=== PATIENT | female | born 1970 | race Caucasian/White ===

== ENCOUNTER → 2018-03-13 10:32 | Outpatient (CLI) | payer OTHER, SELFPAY ==
--- NOTE | 2018-03-13 10:37 | RAD_ITS ---
STUDY: X-RAY - CERVICAL SPINE REASON FOR EXAM: Female, 47 years old. TECHNIQUE: 5 view(s) of the cervical spine were obtained. COMPARISON: March 25, 2013 FINDINGS: There is straightening of the cervical lordosis. No abnormality detected at the craniovertebral junction nor at the levels of C1-C2, C2-3 or C3-4. At the level of C4-5 and C5-6 the discs is slightly narrowed with posterior spondylosis and bilateral encroachment upon the neural foramina more so on the right side. No abnormality seen at the level of C6-7.. 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 Straightening of the cervical lordosis. Electronically Signed: Lenin Vital, at 16:02 EST Tel , Service support ,
[2018-03-13 12:34] LABS: Erythrocyte Sedimentation Rate 14 mm/hr (0-20)
[2018-03-13 12:36] LABS: Hematocrit 39.6 % (37-47); Mean Corp Hgb Conc 32.8 g/gl (32-36); Mean Corpuscular Hgb 27.1 pg (27.0-32.0); Mean Corpuscular Volume 82.7 fL (81-99); Platelet Count 243 K/mm3 (150-450); RBC Distribution Width CV 13.2 % (11.6-14.6); RBC Distribution Width SD 39.1 fl (35.1-43.9); Red Blood Count 4.79 M/mm3 (4.2-5.4); White Blood Count 12.3 K/mm3 (4.4-11.0)
[2018-03-13 12:38] LABS: Scan Indicated on CBC? Y/N NO
[2018-03-13 12:54] LABS: Anion Gap 6 (5-15); BUN 12 mg/dL (7-18); BUN/Creat Ratio 16.1 RATIO (10-20); Calcium,Total 8.4 mg/dL (8.5-10.1); Chloride 107 mmol/L (98-107); Creatinine, Serum 0.75 mg/dL (0.55-1.02); EST Glomerular Filtration Rate 88 mL/min (>60); Est Glom Filt Rate - Afr Amer 106 mL/min (>60); Ferritin 46 ng/mL (8-252); Glucose 97 mg/dL (74-106); Iron 57 ug/dL (50-170); Potassium 4.3 mmol/L (3.5-5.1); Sodium Level 142 mmol/L (136-145); Thyroid Stim Hormone (TSH) 2.33 uIU/mL (0.358-3.74); Vitamin B12 241 pg/mL (211-911); Vitamin D,25 Hydroxy 16.9 ng/mL (29.95-100.01)
== END ==
PROVIDERS: Family Provider Family Medicine; PCP Family Medicine; Referring Provider Family Medicine; Visit Provider Family Medicine
DX: R20.2 Paresthesia of skin (principal); M50.30 Other cervical disc degeneration, unspecified cervical region; E53.8 Deficiency of other specified B group vitamins
CPT/HCPCS: 36415; 72050; 80048; 82306; 82607; 82728; 83540; 83735; 84443; 85027; 85652

== ENCOUNTER 2018-04-17 16:00 | Outpatient (RCR) | payer OTHER, SELFPAY ==
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
--- NOTE | 2018-04-17 17:09 | HP.PTREVAL ---
Blake Zuluaga MD, It has been my pleasure to treat JEREMIAH ANDERSON over the last 10 visits for CERVCIAL DDD AND ZURI PARESTHESIAS TO ARMS.. Please see the progress note below for an update on the physical therapy plan of care! Subjective: PATIENT REPORTS HER ARM TINGLING IS BETTER BUT HER NECK PAIN IS THE SAME OR MAYBE WORSE. THE ARMS ARE QUITE A BIT BETTER. ARM SX'S STILL SOMETIMES WAKE HER UP AT NIGHT. ARM SX'S ARENT' BOTHERING SHORT DISTANCES NOW BUT STILL BOTHER LONG DISTANCES DRIVING. PATIENT REPORTS SHE ALWAYS FEELS BETTER FOR A FEW DAYS AFTER THE TRACTION TREATMENTS. Objective/Function: PATIENT HAS MADE PROGRESS IN TERMS OF DECREASED C/O ZURI UE SX'S, INCREASED NECK ROM, AND INCREASED LEFT ASSISTANT CORPORATION COUNSEL STRENGTH BUT RIGHT ASSISTANT CORPORATION COUNSEL STRENGTH HAS NOT IMPROVED. SHE ALSO REPORTS HER NECK PAIN IS THE SAME OR WORSE. Motor deficit: ZURI UE'S 5/5 WITH MMT'ING. RIGHT ASSISTANT CORPORATION COUNSEL 52 LBS, LEFT 64 LBS (RIGHT ASSISTANT CORPORATION COUNSEL IS THE SAME AND LEFT ASSISTANT CORPORATION COUNSEL HAS IMPROVED. PATIENT IS RIGHT HAND DOMINANT). Sensory deficit: PATIENT REPORTS ZURI UE LIGHT TOUCH SENSATION TESTING FEELS NORMAL ZURI TODAY. ROM deficit: ZURI UE'S WFL. Cervical Mvmt Loss: Flex: NIL. Pro: NIL. Ext: MOD. Ret: MOD. RSB: MIN. LSB: MIN. R Rot: MIN. L Rot: MIN. PATIENT REPORTS IT FEELS GOOD TO STRETCH DURING ROM BUT IT IS HARD TO RETURN FROM STRETCH. NECK FEELS TIGHT. Postural strength: POOR. PATIENT STILL SHOWS DIFFICULTY MAINTAINING GOOD POSTURE CONTROL DURING THERAPY SESSION. CERVICAL OSWESTRY SCORE HAS WORSENED FROM 14 TO 16. Plan Plan: RECOMMEND PHYSICIAN RE-ASSESSMENT. PATIENT IS AGREEABLE. PATIENT MAY BENEFIT FROM FURTHER IMAGING AND/OR FURTHER PT INCONJUNCTION WITH OR WITHOU PAIN MGMT. Goals Goal 1:: DECREASE C/O NECK AND ZURI UE SX'S Goal Time Frame: 4-6 Weeks Goal Progress: Progressing Goal 2:: IMPROVE READING, NECK ROM, POSITION TOLERANCE, DRIVING, HOLDING A PHONE, LYING DOWN, SLEEP, PEALING POTATOES (AND OTHER ADL), GRIPPING/GRASPING, COMPUTER USE, LIFTING AND RECREATIONAL FUNCTION. Goal Time Frame: 4-6 Weeks Goal Progress: Progressing Goal 3:: INSTRUCT IN PROPHYLAXIS Goal Time Frame: 4-6 Weeks Goal Progress: Progressing Anticipated Interventions Patient/Client Instruction: Educate patient on: Condition, Plan of Care, Risk Factors, Benefits of Fitness Program For the Purpose of:: To improve self management Therapeutic Exercise to Include: Strength training, Body mechanics, Postural training, Flexibilty training, Active ROM, Scapular Strength/Stabilization For the Purpose of:: To decrease pain, To increase ROM, To improve muscle performance and motor function, To increase tolerance to activity/condition/position, To improve ability of physical actions for home/community/work/leisure Manual Therapy Techniques to Include: Functional dry needling, Soft tissue mobilization For the Purpose of:: To decrease pain, To increase ROM, To improve nutrient delivery to tissue TENS: Yes IF ES: Yes Cryotherapy (ice pack, ice massage): Yes Thermo therapy (hot pack): Yes Ultrasound (thermal/non thermal): Yes For the Purpose of:: To decrease pain, To decrease swelling/inflammation, To increase ROM, To improve nutrient delivery to tissue Please do not hesitate to contact me at [phone] by phone or if you have questions or concerns regarding this new plan of care! Sincerely, Alfreda Nagel, PT, Cert MDT
--- NOTE | 2018-06-11 13:32 | HP.PT.NRP ---
HP - Discharge Summary (1) - Patient Information JEREMIAH ANDERSON was seen in my office for initial evaluation on 03/14/18. The following Plan of Care was established for this patient: Initial Frequency: 2-3x /Week Initial Duration: 4-6 Weeks - Anticipated Interventions Patient/Client Instruction: Educate patient on: Condition, Plan of Care, Risk Factors, Benefits of Fitness Program For the Purpose of:: To improve self management Therapeutic Exercise to Include: Strength training, Body mechanics, Postural training, Flexibilty training, Active ROM, Scapular Strength/Stabilization For the Purpose of:: To decrease pain, To increase ROM, To improve muscle performance and motor function, To increase tolerance to activity/condition/position, To improve ability of physical actions for home/community/work/leisure Manual Therapy Techniques to Include: Functional dry needling, Soft tissue mobilization For the Purpose of:: To decrease pain, To increase ROM, To improve nutrient delivery to tissue TENS: Yes IF ES: Yes Cryotherapy (ice pack, ice massage): Yes Thermo therapy (hot pack): Yes Ultrasound (thermal/non thermal): Yes For the Purpose of:: To decrease pain, To decrease swelling/inflammation, To increase ROM, To improve nutrient delivery to tissue This patient was last seen in our office 04/17/18. Pertinent comments regarding their Physical therapy will appear below: This patient has not returned to Physical Therapy and is appropriate to return to MD for further follow-up as needed. At this point I will be discontinuing this patient from physical therapy. I would be happy to see this patient again in the future if found appropriate by the physician. Thank you! Aflreda Nagel, PT, Cert MDT
== END 2018-04-17 19:00 | disposition home or self-care (01) ==
LOC: PT 16:00
PROVIDERS: Family Provider Family Medicine; PCP Family Medicine; Visit Provider Family Medicine
DX: M50.30 Other cervical disc degeneration, unspecified cervical region (principal); R20.2 Paresthesia of skin
CPT/HCPCS: 97012; 97110; 97140; 97162; 97530

== ENCOUNTER 2019-02-14 10:30 | Outpatient (RCR) | payer OTHER, SELFPAY ==
--- NOTE | 2018-05-08 16:51 | MASS.EVAL ---
Massage Therapy Evaluation: Initial Evaluation Date: 04/24/2018 SUBJECTIVE: Rylie is a 47 year old female who was referred to the [facility] facility for a massotherapy evaluation by Dr. Zuluaga with the diagnosis of cervicalgia. Rylie presents today with the symptoms of tension and pain in her neck, low back and bilateral hip tension, along with pain within her right hand. OBJECTIVE: Upon observation Rylie has poor posture with her head and shoulders forward from the neutral position in sitting and standing. After examination and palpation I found Rylie to have high muscle tension with tenderness and myofascial restrictions in her sub occipitals, levator scapulae, trapezius, rhomboids, scalenes, and thoracic paraspinals with the right side worse than the right. Her QL?s, lumbar paraspinals, piriformis, glute medius and minimus all were very tight with fascial restrictions, tender points and trigger points. The first treatment consisted of a one hour massage to her upper body with myofascial release, muscle stripping, trigger point compression techniques, and cervical manual traction. ASSESSMENT: I feel that Rylie is a good candidate for massotherapy at this time. She had a favorable response to the first treatment with reduction in her muscle aches, pain and tension. She also had improvement in her cervical flexibility and low back flexibility. PLAN: The plan of care was reviewed with the patient. The patient is to be seen on an as needed basis for a total of ten sessions with the recommendation of once every month for a one hour treatment. Suad Mosher LMT
--- NOTE | 2019-02-24 19:10 | MASS.DISCH ---
Massage Therapy Discharge Summary: Discharge Date: 02/24/2019 Rylie was seen for a massotherapy evaluation on 04/24/2018 with the diagnosis of cervicalgia. She was treated with ten sessions of massage therapy consisting of moderate to deep pressure soft tissue techniques, myofascial release and trigger point compression to her cervical, thoracic, lower back, and upper extremities. Rylie responded well to the therapy by reporting decreased tension and pain throughout her head, neck, shoulders, lower back and hips. Her goals for therapy were met throughout the treatment sessions. At this time this patient is being discharged from our care at [facility] facility. Suad Mosher LMT
== END 2019-02-14 19:00 | disposition home or self-care (01) ==
LOC: MASS 10:30
PROVIDERS: Family Provider Family Medicine; PCP Family Medicine; Referring Provider Family Medicine; Visit Provider Family Medicine
DX: M54.2 Cervicalgia (principal)
CPT/HCPCS: 97124

== ENCOUNTER 2019-10-14 10:45 | Outpatient (RCR) | payer OTHER, SELFPAY ==
--- NOTE | 2019-04-08 14:55 | MASS.EVAL ---
Massage Therapy Evaluation: Initial Evaluation Date: 04/07/2019 SUBJECTIVE: Rylie is a 48 year old female who was referred to the [facility] facility for a massotherapy evaluation by Dr. Zuluaga with the diagnosis of cervicalgia and degenerative disc disease. She presents today with the symptoms of pain, stiffness and tension in the neck, mid back and low back and numbness occasionally in her hands. Rylie reports having a past medical history of chronic pain and tension in her neck, shoulders and low back related to her posture and stress. She reports having minimal improvement with exercise and stretching. OBJECTIVE: Upon observation Rylie has some posture issues with her head and shoulders forward from the neutral position in sitting and standing. After examination and palpation, I found Rylie to have high muscle tension with tenderness and myofascial restrictions in her sub occipitals, levator scapulae, trapezius, rhomboids, scalenes, and thoracic paraspinals. The first treatment consisted of a one hour massage to her upper body with myofascial release, muscle stripping, trigger point compression techniques, and cervical manual traction. ASSESSMENT: I feel that Rylie is a good candidate for massotherapy at this time. She had a favorable response to the first treatment with reduction in her muscle aches, pain and tension. She also had improvement in her cervical flexibility and low back flexibility. PLAN: The plan of care was reviewed with the patient. The patient is to be seen on an as needed basis for a total of ten sessions with the recommendation of once every month for a one hour treatment.
--- NOTE | 2020-03-17 12:01 | DS.PCM_ITS ---
Massage Therapy Discharge Summary: Discharge Date: 03/17/2020 Rylie was seen for a massotherapy evaluation on 03/28/2019 with the diagnosis of neck and back pain She was treated with nine sessions of massage therapy consisting of deep pressure soft tissue techniques, myofascial release and trigger point compression to her cervical, thoracic, lower back and hips. Christie responded well to the therapy by reporting decreased tension and pain throughout her neck, shoulders, lower back and hips. Her goals for therapy were met throughout the treatment sessions. At this time this patient is being discharged from our care at [facility] facility.
== END 2019-10-14 19:00 | disposition home or self-care (01) ==
LOC: MASS 10:45
PROVIDERS: Family Provider Family Medicine; PCP Family Medicine; Referring Provider Family Medicine; Visit Provider Family Medicine
DX: M54.2 Cervicalgia (principal)
CPT/HCPCS: 97124

== ENCOUNTER → 2020-10-05 09:30 | Outpatient (CLI) | payer OTHER, SELFPAY ==
[2019-06-07 12:05] VITALS: BMI 35.2
--- NOTE | 2020-10-05 09:34 | RAD_ITS ---
STUDY: X-RAY CHEST REASON FOR EXAM: Female, 50 years old. Sob TECHNIQUE: PA and lateral views of the chest. COMPARISON: None. FINDINGS: The lungs are clear and expanded. There is no demonstrated pleural abnormality. Normal size heart. Normal mediastinum and sarkis. Normal visualized pulmonary arteries. Normal visualized aortic arch and descending thoracic aorta. There are degenerative changes of the visualized thoracic spine. Normal visualized ribs, clavicles, and shoulders. There is no demonstrated abnormality of the visualized soft tissue structures of the upper abdomen. RAD/Chest PA and Lateral IMPRESSION: Normal x-ray examination of the chest. Electronically Signed: Justin Gaviria MD at 21:28 EDT , Service support ,
== END ==
PROVIDERS: PCP Family Medicine; Referring Provider Family Medicine; Visit Provider Family Medicine
DX: R06.02 Shortness of breath (principal)
CPT/HCPCS: 71046

== ENCOUNTER → 2020-10-06 09:57 | Outpatient (CLI) | payer OTHER, SELFPAY ==
[2019-06-07 12:05] VITALS: BMI 35.2
[2020-10-06 12:09] LABS: Erythrocyte Sedimentation Rate 15 mm/hr (0-30)
[2020-10-06 12:11] LABS: Hematocrit 40.2 % (37-47); Hemoglobin 12.9 g/dL (12.0-15.0); Mean Corp Hgb Conc 32.1 g/dL (32-36); Mean Corpuscular Hgb 27.2 pg (27.0-32.0); Mean Corpuscular Volume 84.8 fL (81-99); Platelet Count 255 K/mm3 (150-450); RBC Distribution Width CV 12.8 % (11.6-14.6); RBC Distribution Width SD 38.7 fl (35.1-43.9); Red Blood Count 4.74 M/mm3 (4.2-5.4); White Blood Count 9.5 K/mm3 (4.4-11.0)
[2020-10-06 12:30] LABS: Ferritin 88 ng/mL (8-252); Iron 79 ug/dL (50-170); Thyroid Stim Hormone (TSH) 2.24 uIU/mL (0.358-3.74)
[2020-10-06 12:48] LABS: BNP,B-Type NATRIURETIC PEPTIDE 70.3 pg/mL (0-100)
== END ==
PROVIDERS: PCP Family Medicine; Referring Provider Family Medicine; Visit Provider Family Medicine
DX: R06.02 Shortness of breath (principal); R25.2 Cramp and spasm
CPT/HCPCS: 36415; 82306; 82728; 83540; 83880; 84443; 85027; 85652

== ENCOUNTER → 2020-10-18 13:17 | Outpatient (CLI) | payer OTHER, SELFPAY ==
[2019-06-07 12:05] VITALS: BMI 35.2
--- NOTE | 2020-10-18 13:25 | STEWCON_ITS ---
Reason For Study: SOB; Family HX of CAD Stress Results Protocol: Sarmad Protocol WITH DEFINITY Maximum Predicted HR: 168 bpm Target HR: 143 bpm % Maximum Predicted HR: 85 % DurationHeart Rate Stage (mm:ss) (bpm) BP Comment Baseline 63 120/72No Chest Pain; 5 ML Diluted Definity Sarmad Protocol Stage I 3:00 88 134/76No Chest Pain Sarmad Protocol Stage II 3:00 97 136/74No Chest Pain; Mild Dyspnea Sarmad Protocol Stage III 3:00 127 140/72No Chest Pain; Moderate Dyspnea Sarmad Protocol Stage IV 0:30 142 / No Chest Pain; Moderate Dyspnea Recovery 86 118/68No Chest Pain; No Dyspnea Stress Duration: 9:30 mm:ss Maximum Stress HR: 142 bpm METS: 11 Baseline Echocardiogram Findings Stress Echo Wall motion Data Resting WM Intermediate WM Stress WM Resting Wall Motion Wall Motion Stress All segments Normal. All segments Hyperkinetic. Ejection Fraction 55 %. Ejection Fraction 65 %. Stress Results Heart rate response: Appropriate Blood pressure response: Normal resting blood pressure-appropriate response Arrhythmias: rare PVC during exercise / recovery Functional capacity: Good Stop secondary to: Dyspnea. EKG Data Baseline ECG: NSR. Peak exercise ECG: somatic / motion artifact with no obvious ECG changes. Symptoms with Stress No complaint of chest discomfort during exercise or recovery. Doppler Measurements & Calculations TR max adeel: 199.1 cm/sec TR max P.9 mmHg ECHO/Stress Test Echo W/Contrast Interpretation Summary Contrast injection performed Negative (adequate) stress echocardiogram Ordering Physician: Blake Zuluaga Referring Physician: Dago Araujo Performed By: Khadra Pitts, VARUNCS, RVT
== END ==
PROVIDERS: PCP Family Medicine; Referring Provider Family Medicine; Visit Provider Family Medicine
DX: R06.02 Shortness of breath (principal)
CPT/HCPCS: 93017; 93350; Q9957; A4216; C8928; J3490

== ENCOUNTER → 2020-12-25 07:47 | Outpatient (CLI) | payer OTHER, SELFPAY ==
[2020-12-25 08:44] LABS: ALB/GLOB Ratio 1.1 RATIO (0.9-2.4); AST(SGOT) 23 U/L (15-37); Alanine Aminotransfer ALT/SGPT 43 U/L (13-56); Albumin, Serum 3.5 g/dL (3.2-5.0); Alkaline Phosphatase 124 U/L (45-117); Anion Gap 6 (5-15); BUN 12 mg/dL (7-18); BUN/Creat Ratio 16.7 RATIO (10-20); Calcium,Total 8.4 mg/dL (8.5-10.1); Chloride 106 mmol/L (98-107); Cholesterol 143 mg/dL (200); Creatinine, Serum 0.72 mg/dL (0.55-1.02); EST Glomerular Filtration Rate 91 mL/min (>60); Est Glom Filt Rate - Afr Amer 110 mL/min (>60); Globulin 3.3 g/dL (2.2-4.2); Glucose 114 mg/dL (74-106); High Density Lipoprotein 41 mg/dL; Potassium 4.2 mmol/L (3.5-5.1); Protein, Total 6.8 g/dL (6.4-8.2); Sodium Level 140 mmol/L (136-145); Triglycerides 191 mg/dL; Very Low Density Lipoprotein 38 mg/dL (5-40)
[2020-12-27 08:15] LABS: Vitamin B12 548 pg/mL (211-911)
== END ==
PROVIDERS: PCP Family Medicine; Referring Provider Family Medicine; Visit Provider Family Medicine
DX: E78.00 Pure hypercholesterolemia, unspecified (principal); E53.8 Deficiency of other specified B group vitamins; E55.9 Vitamin D deficiency, unspecified
CPT/HCPCS: 36415; 80053; 80061; 82306; 82607

== ENCOUNTER → 2021-02-14 15:53 | Outpatient (CLI) | payer OTHER, SELFPAY ==
--- NOTE | 2021-02-14 16:00 | RAD_ITS ---
EXAM: XR RIGHT TOES, 2 OR MORE VIEWS CLINICAL INDICATION: FOOT PAIN Technologist Notes patient stubbed 5th toe, bruising and swelling, distal MT TECHNIQUE: Frontal, lateral and oblique views of the toes of the right foot. This report was created using [employer] report generation technology. COMPARISON: None. FINDINGS: BONES/JOINTS: Unremarkable. No acute fracture. No dislocation. SOFT TISSUES: Soft tissue swelling around the fifth digit. No radiopaque foreign body. RAD/Toe(s) Min 2 Views IMPRESSION: Soft tissue swelling around the fifth digit. Electronically Signed: Ariel Hensley MD at 16:10 EST , Service support ,
== END ==
PROVIDERS: PCP Family Medicine; Referring Provider Family Medicine; Visit Provider Family Medicine
DX: M79.674 Pain in right toe(s) (principal)
CPT/HCPCS: 73660

== ENCOUNTER 2021-03-16 12:00 | Outpatient (RCR) | payer OTHER, SELFPAY ==
[2019-06-07 12:05] VITALS: BMI 35.2
--- NOTE | 2020-11-18 08:26 | MASS.EVAL ---
Massage Therapy Evaluation: INITIAL EVALUATION DATE: PT NAME: JEREMIAH ANDERSON : V#:[id number] REF PHYS: DR. 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 JEREMIAH WAS REFERRED TO [facility] FOR A MASSOTHERAPY EVALUATION BY DR. HUDSON WITH A DIAGNOSIS OF CERVICALGIA. SHE PRESENTS TODAY WITH CERVICAL STENOSIS, NUMBNESS DOWN THE ARMS AND PAIN BESIDE BOTH SIDES OF THE SACRUM. JEREMIAH RATES HER HEALTH TO BE IN GOOD CONDITION WITH NO TO SOME LIMITATIONS IN HER DAILY ACTIVITIES. THE PATIENT DID NOT LIST ANY MEDICATIONS AT THIS TIME. OBJECTIVE: THE FIRST TREATMENT CONSISTED OF A HOUR UPPER BODY MASSAGE. I FOCUSED ON THE CERVICAL ANTERIOR AND POSTERIOR SPINE, UPPER TRAPEZIUM, PECTORALS, FOREARMS, PARASPINALS, AND SI JOINT MUSCLES. TRIGGER POINT, COMPRESSION, AND MACEDONIAN WERE ALL PERFORMED. ASSESSMENT: DURING THE FIRST MASSAGE I NOTICED THE PATIENT HAD A LOT OF MUSCLE TENSION, NOT MUCH NATURAL MYOFASCIAL MOVEMENT. THE PATIENT WAS VERY TENDER IN THE RIGHT LATERAL SCALENES, FOREARMS, AND IN THE GLUTEUS MEDIUS MUSCLES. OVERALL, THE PATIENT RELAXED WELL AND I FELT THE PATIENT MUSCLES RELEASED WELL FOR THE FIRST SESSION. I FEEL THE PATIENT IS A GOOD CANDIDATE FOR MASSOTHERAPY AT THIS TIME. PLAN: THE PLAN OF CARE WAS REVIEWED WITH THE PATIENT. THE PATIENT IS TO BE SEEN ON A MONTHLY BASIS FOR ONE HOUR SESSIONS OF MASSOTHERAPY.
--- NOTE | 2021-03-16 18:46 | DS.PCM_ITS ---
Massage Therapy Discharge Summary: Discharge Date: 03/16/2021 Rylie was seen for a massotherapy evaluation on 11/15/2020 with the diagnosis of neck and back pain. She was treated with four sessions of massage therapy consisting of deep pressure soft tissue techniques, myofascial release and trigger point compression to her cervical, thoracic, lower back and hips. Rylie responded well to the therapy by reporting decreased tension and pain throughout her neck, shoulders, lower back, hips and feet. Her goals for therapy were met throughout the treatment sessions. At this time this patient is being discharged from our care at [facility] facility.
== END 2021-03-16 19:00 | disposition home or self-care (01) ==
LOC: MASS 12:00
PROVIDERS: PCP Family Medicine; Referring Provider Family Medicine; Visit Provider Family Medicine
DX: M54.2 Cervicalgia (principal)
CPT/HCPCS: 97124

== ENCOUNTER → 2021-10-26 | Outpatient (CLI) | payer OTHER, SELFPAY ==
--- NOTE | 2021-10-26 13:06 | RAD_ITS ---
EXAM: XR LEFT HIP WITH PELVIS WHEN PERFORMED, 2 OR 3 VIEWS CLINICAL INDICATION: PAIN PAIN TECHNIQUE: Two or three views of the left hip with pelvis when performed. This report was created using [employer] report generation technology. COMPARISON: X-ray right hip. FINDINGS: BONES/JOINTS: Unremarkable. No displaced fracture. No destructive or sclerotic lesions. Note that overlapping bowel shadows may however obscure fine detail. Sacroiliac joint is unremarkable. No widening of the pubic symphysis. The articular structures are unremarkable. SOFT TISSUES: There are metallic clips overlying the pelvis, probably representing tubal ligation clips. No soft tissue swelling or gas. RAD/HIP, UNI W/ Pelvis 2-3 Views IMPRESSION: No acute findings in the pelvis or left hip. Electronically Signed: Abel Busby MD at 4:27 EDT Reading Location ID and State: [facility] / [place] , Service support ,
--- NOTE | 2021-10-26 13:06 | RAD_ITS ---
STUDY: RIGHT HIP X-RAY SERIES OF 1345 HOURS ON 10/26/2021 REASON FOR EXAM: 51-year-old female with right hip pain. TECHNIQUE: 2 views of the pelvis and hip. COMPARISON: None. FINDINGS: There is no evidence of fractures or dislocations. There are no significant arthritic or degenerative changes. There is no joint effusion. The adjacent right pelvic bones are normal. The right sacroiliac joint and the symphysis pubis are normal. RAD/HIP, UNI W/ Pelvis 2-3 Views IMPRESSION: 1. Normal examination. 2. No fractures or dislocations. 3. No arthritic or degenerative changes. Electronically Signed: Gus Vanegas MD at 21:11 EDT ,
--- NOTE | 2021-10-26 13:31 | RAD_ITS ---
EXAM: XR LUMBOSACRAL SPINE, 4 OR 5 VIEWS CLINICAL INDICATION: PAIN PAIN TECHNIQUE: Frontal, lateral and bilateral oblique views of the lumbar spine. This report was created using [employer] report generation technology. COMPARISON: None. FINDINGS: VERTEBRAE: Unremarkable. Preserved vertebral body height. No fracture. No spondylolisthesis. Preservation of the normal lumbar lordosis. No significant facet arthropathy. DISC SPACES: No acute findings. Disc spaces are maintained. GASTROINTESTINAL TRACT: Unremarkable as visualized. Included bowel gas pattern is non-obstructive. RAD/L/S Spine Min 4 Views IMPRESSION: No evidence of lumbar spinal fracture or spondylolisthesis. Electronically Signed: Abel Busby MD at 4:30 EDT Reading Location ID and State: [facility] / [place] , Service support ,
== END | disposition home or self-care (01) ==
PROVIDERS: PCP Family Medicine
DX: M54.50 Low back pain, unspecified (principal); M25.551 Pain in right hip; M25.552 Pain in left hip
CPT/HCPCS: 72110; 73502

== ENCOUNTER 2021-11-16 16:30 | Outpatient (RCR) | payer OTHER, SELFPAY ==
--- NOTE | 2021-10-28 15:00 | HP.PTEVAL ---
Patient's Visit Information JEREMIAH ANDERSON is a 51 year old F referred to Physical Therapy by Dr. Blake Zuluaga MD with a diagnosis of R hip piriformis, DDD. Date of Evaluation: 10/28/21 Physical Therapist: Jeremy Randolph, DPT, OCS, CSCS - Visit Plan Frequency: 2-3x /Week Duration: 4-6 Weeks Plan: 3x/week for 2-4 weeks. rollout and stretch R piriformis and stretching. mat strength for hip and core and progress to I. include yoga stretches and LB ROM - Subjective I have LB pain and has used antiiflammatories to manage. Lately R ITB has been hurting her. Hard time crossing R leg to posterior leg pain, hurts to stretch that area. Chiro thought it might be his hip. X rays ordered. Margareth thinks it is deep tissue stuff and wants to try therapy. History of LBp also. Moving OK now but last couple weeks have been rough. Started naproxen and doing better. Could barely walk in store the other day. Does a lot of izaiah or cleaning basement or home project than takes naproxen b/c she can barely move. getting in and out of car or chair can be tough if sits length of time. Sleep is not terrible. No numbness or tingling in legs. Had it in arms for years. Takes weight off R to stand up. 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 Stood at work last 3 weeks and was painful. No regular ex, has straps for stretching. Basic ADLs getting done. Enjoys izaiah. - Pain LB Pain Intensity (Out of 10): 2 Pain Intensity Range: 1, 8 R leg ITB area Pain Intensity (Out of 10): 2 Pain Intensity Range: 8 Comment: dullache - Objective Antalgic R gait, steps prefers L but can do R today, would have been bad last week. + R HARIS not FADDIR. L/S AROM ext adn flexion are tight but not painful, SB are full adn painfree. Hip aROM WFL B, pain R flexion, ext rotation . Knee and ankles full AROM and 4/[address] without pain. hip strength is 4-/5 abd and ext and flexion. Max tender R ITB adn prirformis area and mod on L. - slump and - SLR - Balance/Special Test Scores Lower Extremity Functional Score: 32 - Goals Goal 1:: I management of condition to minimize pain Goal Time Frame: 2-4 Weeks Goal 2:: Pain 0-2/10 at most in leg and LB without need for pain meds Goal Time Frame: 2-4 Weeks Goal 3:: LEFS 45 score to show improved mobiity Goal Time Frame: 2-4 Weeks Goal 4:: Pateint feel 75% betteer in overall condition and able to walk community without pain increase. Goal Time Frame: 2-4 Weeks - Rehabilitation Potential Physical Therapy Diagnosis: R ITB, hip pain Rehabilitation Potential: Fair - Anticipated Interventions Patient/Client Instruction: Educate patient on: Condition, Plan of Care For the Purpose of:: To decrease pain, To improve muscle performance and motor function, To increase tolerance to activity/condition/position, To improve ability of physical actions for home/community/work/leisure Therapeutic Exercise to Include: Strength training, Flexibilty training, Passive ROM, Active ROM, Dynamic Lumbar Stabilization For the Purpose of:: To decrease pain, To improve nutrient delivery to tissue, To improve muscle performance and motor function, To increase tolerance to activity/condition/position Manual Therapy Techniques to Include: Mobilization, Passive ROM, Soft tissue mobilization For the Purpose of:: To decrease pain, To increase ROM Thermo therapy (hot pack): Yes For the Purpose of:: To decrease pain Thank you for the opportunity to evaluate your patient. For Medicare and Medicare HMO plans, please review the plan of care and approve it. It will need to be FAXED BACK to us at [phone] for Medicare purposes. For Medicare only, by signing this I certify the plan of care. Please let me know if there are questions or concerns regarding this plan of care. Physician Signature: Date:
--- NOTE | 2021-11-16 17:15 | HP.PTDCSUM_ITS ---
It has been my pleasure to treat JEREMIAH ANDERSON referred by Dr. Blake Zuluaga MD, with the diagnosis of R hip piriformis, DDD for a total of 7 visit(s). Discharge Date: 11/16/21 Please see the following information for a summary of their discharge status. Subjective: Not much better. Singh eof hip is better and LB is not much better. hip is much better 50% better. Putting shoes on is easier. LB pain is funny, pain is intermittent. Worse with sitting too long and then it is hard to stand up, hard to walk a couple miles as pain gets worse while walking at two miles. Pain gets up to 6/10 and is in R buttock. LB Pain Intensity (Out of 10): 4 R leg ITB area Pain Intensity (Out of 10): 2 % Improvement: 50 Objective/Function: Walks nomral today wihtout pain or antalgia, LB ext min limited adn painful central, PA pressure lower lumbar is very tender. Hip movements are WNL and improving function with ext rotation to cross legs and put shoes on. Goal 1:: I management of condition to minimize pain Goal Progress: Goal Met Goal 2:: Pain 0-2/10 at most in leg and LB without need for pain meds Goal Progress: Progressing Goal 3:: LEFS 45 score to show improved mobiity Goal Progress: Goal Met Goal 4:: Pateint feel 75% betteer in overall condition and able to walk community without pain increase. Goal Progress: Progressing Plan: d/c, pt to contact doctor if pain returns or does not improve, will cont inue HEP in meantime. Needed to hold ont herapy due to insurance change and not covered as well. If there are questions or concerns regarding this patient's physical therapy, please feel free to call me at [phone]. Thank you for the referral of this patient. Sincerely, Jeremy Randolph, DPT, OCS, CSCS Balance/Gait/Functional tests - Balance/Special Test Scores Lower Extremity Functional Score: 52
== END 2021-11-16 19:00 | disposition home or self-care (01) ==
LOC: PT 16:30
PROVIDERS: PCP Family Medicine; Referring Provider Family Medicine; Visit Provider Family Medicine
DX: M51.36 Other intervertebral disc degeneration, lumbar region (principal); G57.01 Lesion of sciatic nerve, right lower limb
CPT/HCPCS: 97110; 97162; 97164

== ENCOUNTER → 2022-02-22 | Outpatient (CLI) | payer OTHER, SELFPAY ==
--- NOTE | 2022-02-22 11:00 | RAD_ITS ---
EXAM: XR CHEST, 2 VIEWS CLINICAL INDICATION: coughing and gt;5weeks TECHNIQUE: Frontal and lateral views of the chest. This report was created using [employer] report generation technology. COMPARISON: XR Chest dated 10/05/2020 FINDINGS: LUNGS AND PLEURAL SPACES: Normal. No consolidation or edema. No pneumothorax. No effusion. HEART: Normal heart size. MEDIASTINUM: No mediastinal or hilar mass. BONES/JOINTS: No acute abnormality. SOFT TISSUES: Normal. RAD/Chest PA and Lateral IMPRESSION: No acute cardiopulmonary abnormality. No interval change Electronically Signed: Matheus Quiroga MD at 11:36 EST ,
== END | disposition home or self-care (01) ==
PROVIDERS: PCP Family Medicine; Referring Provider Nurse Practitioner Family; Visit Provider Nurse Practitioner Family
DX: J42 Unspecified chronic bronchitis (principal)
CPT/HCPCS: 71046

== ENCOUNTER → 2022-06-17 | Outpatient (CLI) | payer OTHER, SELFPAY ==
[2022-06-17 08:32] LABS: Hematocrit 40.3 % (37-47); Hemoglobin 13.1 g/dL (12.0-15.0); Mean Corp Hgb Conc 32.5 g/dL (32-36); Mean Corpuscular Volume 82.9 fL (81-99); Mean Platelet Vol. 10.5 fl (6.2-12.0); Platelet Count 230 K/mm3 (150-450); RBC Distribution Width CV 12.6 % (11.6-14.6); RBC Distribution Width SD 37.9 fl (35.1-43.9); Red Blood Count 4.86 M/mm3 (4.2-5.4); White Blood Count 9.7 K/mm3 (4.4-11.0)
[2022-06-17 09:01] LABS: ALB/GLOB Ratio 1.1 RATIO (0.9-2.4); AST(SGOT) 14 U/L (15-37); Alanine Aminotransfer ALT/SGPT 25 U/L (13-56); Albumin, Serum 3.4 g/dL (3.2-5.0); Alkaline Phosphatase 107 U/L (45-117); Anion Gap 6 (5-15); BUN 15 mg/dL (7-18); BUN/Creat Ratio 23.4 RATIO (10-20); CRP < 2.90 mg/L (0.0-3.0); Calcium,Total 8.7 mg/dL (8.5-10.1); Chloride 108 mmol/L (98-107); Cholesterol 154 mg/dL (200); Creatinine, Serum 0.64 mg/dL (0.55-1.02); EST Glomerular Filtration Rate 103 mL/min (>60); Est Glom Filt Rate - Afr Amer 124 mL/min (>60); Ferritin 70 ng/mL (8-252); Globulin 3.1 g/dL (2.2-4.2); Glucose 120 mg/dL (74-106); High Density Lipoprotein 37 mg/dL; Iron 45 ug/dL (50-170); Potassium 4.1 mmol/L (3.5-5.1); Protein, Total 6.5 g/dL (6.4-8.2); Rheumatoid Factor < 10.0 IU/mL (<15); Sodium Level 141 mmol/L (136-145); Thyroid Stim Hormone (TSH) 2.28 uIU/mL (0.358-3.74); Triglycerides 241 mg/dL; Very Low Density Lipoprotein 48 mg/dL (5-40)
[2022-06-19 08:30] LABS: PTHIN 62.6 pg/mL (18.4-80.1)
[2022-06-19 09:07] LABS: Vitamin B12 294 pg/mL (211-911); Vitamin D,25 Hydroxy 36.8 ng/mL
[2022-06-20 11:14] LABS: ANTINUCLEAR ANTIBODIES DIRECT Negative (Negative)
[2022-06-22 14:22] LABS: Vitamin A, Retinol 40.8 ug/dL (20.1-62.0)
== END | disposition home or self-care (01) ==
LOC: LAB 08:04
PROVIDERS: PCP Family Medicine; Visit Provider Family Medicine
DX: Z00.00 Encounter for general adult medical examination without abnormal findings (principal); R25.2 Cramp and spasm; Z98.84 Bariatric surgery status
CPT/HCPCS: 36415; 80053; 80061; 82306; 82607; 82728; 83540; 83970; 84443; 84590; 85027; 86038; 86140; 86431

== ENCOUNTER → 2022-07-04 | Outpatient (CLI) | payer OTHER, SELFPAY ==
[2022-07-11 14:09] LABS: HPV APTIMA, High Risk Negative (Negative)
== END | disposition home or self-care (01) ==
LOC: WOBLAB 16:38
PROVIDERS: PCP Family Medicine; Visit Provider Student in an Organized Health Care Education/Training Program
DX: Z12.4 Encounter for screening for malignant neoplasm of cervix (principal)
CPT/HCPCS: 87624; 88175; G0145

== ENCOUNTER → 2022-07-18 | Outpatient (CLI) | payer OTHER, SELFPAY ==
--- NOTE | 2022-07-18 16:27 | BI_ITS ---
MAMMOGRAPHY - BILATERAL SCREENING REASON FOR EXAM: Female, 51 years old. Routine annual screening examination. PERTINENT HISTORY: Non-contributory. TECHNIQUE: Digital bilateral breast charisse (3D mammographic acquisition) in the CC and MLO projections. 2-D mediolateral oblique (MLO) and craniocaudad (CC) views of both breasts were obtained. CAD: Full Field Digital Mammography with Computer Added Detection was performed. COMPARISON: Comparison is made with prior study January 15, 2013. FINDINGS: Breast Composition: The breasts are almost entirely fatty. There are no dominant masses or suspicious calcifications. No other significant abnormalities are identified. There has been no significant change since the prior study. BI/SCRN MAMM (CAD)W/CHARISSE BILAT IMPRESSION: Stable bilateral screening mammogram. Yearly follow-up mammogram recommended. (A) ASSESSMENT CATEGORY: BIRADS Category 1: Negative. A letter regarding these results will be sent to the patient by the facility within 30 days. Approximately 10% of breast cancers are not detected by mammography. A normal mammogram should not delay biopsy of a clinically suspicious abnormality. [id number] Electronically Signed: Justin Gaviria MD at 8:39 EDT ,
== END | disposition home or self-care (01) ==
LOC: OPBI 07-19 08:45
PROVIDERS: PCP Family Medicine; Referring Provider Student in an Organized Health Care Education/Training Program; Visit Provider Student in an Organized Health Care Education/Training Program
DX: Z12.31 Encounter for screening mammogram for malignant neoplasm of breast (principal)
CPT/HCPCS: 77063; 77067

== ENCOUNTER 2022-10-17 12:52 | Day surgery (SDC) | payer OTHER, SELFPAY ==
[2022-10-17] VITALS (7 sets, daily range): BP systolic 90–124; BP diastolic 49–66; PULSE 59–68; RESP 16; TEMP 36.4–36.8; O2SAT 96–100; BMI 38.7
[2022-10-17] MEDS: Lactated Ringers 1,000 ML 15 ML IV (13:15)
--- NOTE | 2022-10-17 13:34 | PCM.HP.STD ---
HPI - General General Date of Admission: 10/17/22 Date of Service: 10/17/22 Chief Complaint: Screening colonoscopy HPI Narrative JEREMIAH ANDERSON, is a 52 F who presents today for screening colonoscopy. She has past medical history of obesity with gastric sleeve and post duodenal switch procedure done in 2007. She is having a colonoscopy in the past. She does not have abdominal pain. She is not having chest pain or shortness of breath. She denies any weakness. Overall she is in very good health. All other 16 review systems are negative except as per body mentioned HPI. PFS Medical History (Updated 10/16/22 @ 10:01 by Lennie Rendon) Back pain BPD-DS COVID-19 Former smoker Gastric reflux History of stress test Normal stress echocardiogram Shortness of breath on exertion Wears glasses Home Medications albuterol sulfate 90 mcg/actuation aerosol inhaler 2 puff inhalation .Q4-6H PRN shortness of breath or wheezing #6.7 grams 06/07/19 [Rx Last Taken Unknown] cholecalciferol (vitamin D3) 50 mcg (2,000 unit) capsule 50 mcg PO DAILY 07/07/22 [History Last Taken Unknown] omeprazole 40 mg capsule,delayed release 40 mg PO PRN GERD 07/07/22 [History Last Taken Unknown] naproxen 250 mg tablet 500 mg PO DAILY PRN pain 10/16/22 [History Last Taken Unknown] Allergy/AdvReac Type Severity Reaction Status Date / Time No Known Allergies Allergy Verified 10/16/22 09:32 Family History Father Kidney disease Hypertension Heart disease Diabetes Mother COPD (chronic obstructive pulmonary disease) Surgical History (Updated 10/16/22 @ 09:55 by Lennie Rendon) History of appendectomy History of Hx of tubal ligation Status post biliopancreatic diversion with duodenal switch Social History Smoking Status: Former smoker alcohol intake: never ROS Review of Systems ROS Unobtainable: other Constitutional Constitutional: Denies fatigue, fever(s), poor appetite, weight gain or weight loss ENT HEENT: Denies mouth lesions Cardiovascular Cardiovascular: Denies abdominal bloating, abdominal edema or abdominal pain Respiratory/Chest Respiratory/Chest: Denies change in mental status, change in phlegm color, chest congestion or chest tightness Gastrointestinal Gastrointestinal: Denies belching, bloating, change in bowel habits, change in stool character, chewing difficulty, coffee ground emesis, constipation, cramping, diarrhea, dyspepsia, dysphagia, early satiety, excessive flatus, fecal incontinence, heartburn, hematemesis, hematochezia, hemorrhoids, loose stools, melena, nausea, odynophagia, rectal bleeding, tenesmus, vomiting or weight changes Genitourinary Genitourinary: Denies abdominal discomfort, burning urination or itching Musculoskeletal Musculoskeletal: Reports as per HPI; Denies muscle weakness or myalgias Integumentary Integumentary: Denies jaundice Neurologic Neurologic: Denies lack of coordination or weakness Psychiatric Psychiatric: Denies confusion, depression, memory loss, mood swings, paranoia or suicidal ideation Endocrine Endocrinology: Denies systems reviewed and no addt'l complaints, except as documented Hematologic/Lymphatic Hematologic/Lymphatic: Denies anemia, easy bleeding, easy bruising or lymphadenopathy Allergic/Immunologic Allergic/Immunologic: Denies systems reviewed and no addt'l complaints, except as documented Physical Exam Const alert General Appearance: cooperative Orientation / Consciousness: oriented to person HEENT hearing grossly normal bilaterally Head and Scalp: normal to inspection Face and Sinus: face symmetric Nose: external nose normal Mouth: oral and palatal mucosa normal Eyes conjunctivae normal General Eye: normal appearance of both eyes Neck full ROM General: normal visual inspection Lymph Lymphatic: no lymphadenopathy noted Chest inspection of chest normal and palpation of chest normal Chest: symmetrical chest wall rise Resp normal respiratory effort Effort and Inspection: able to speak in complete sentences Cardio regular rate GI non-distended Percussion: normal to percussion Rectal Exam: deferred Neuro Speech: speech normal Gait (Neuro): normal gait Assessment & Plan Assessment/Plan (1) Encounter for screening for malignant neoplasm of colon: PLAN: She was explained alternatives risk and if it did not withstanding bleeding, infection, sepsis, perforation, or discharge and . She will have an ASA of 2.
--- NOTE | 2022-10-17 14:00 | COLBX_PTH ---
PATIENT: JEREMIAH ANDERSON LOC: EN U#:[id number] AGE/SX: 52/F ROOM: RE10/17/[address]: Dr. Omar Vines DO : 1970 BED: DIS: 10/17/2022 SPEC #: [id number] RECD: 10/17/22 16:31 STATUS: CARLOS RAFIQ #: [id number] PILAR: 10/17/22 14:[address]: Omar Vines DEPT: SURGICAL PATHOLOGY RECD BY: Catrina Lloyd ENTERED: 10/18/22 09:35 SP TYPE: COLON BX AMAN DR: Dr. Altaf Zuluaga MD Tissues: A - COLON BIOPSY B - Ascending colon C - Descending colon D - Sigmoid colon biopsy Procedures: Surgery Specimen Level IV HEADER OPERATION: Colonoscopy - open access (MAC), polypectomy, biopsy PRE-OP DIAGNOSIS: Screening TISSUE SUBMITTED: A - Splenic flexure polyp, B - Ascending polyp biopsy, C - Descending polyp biopsy, D - Sigmoid polyp MICROSCOPIC DIAGNOSIS A. Splenic flexure polyp, polypectomy: Tubular adenoma. B. Ascending colon polyp, biopsy: Tubular adenoma. C. Descending colon polyp, biopsy: Tubular adenoma. D. Sigmoid polyp, polypectomy: Fragments of tubular adenoma. SJ:donavan 10/19/2022 MICROSCOPIC DESCRIPTION Slides are reviewed. GROSS DESCRIPTION A - Received in fixative is one container labeled with the patient's name and designated splenic flexure. The specimen consists of one irregular fragment of light lara soft tissue that measures 0.5 x 0.5 x 0.2 cm. The specimen is totally submitted in one cassette. B - Received in fixative is one container labeled with the patient's name and designated ascending polyp. The specimen consists of one irregular fragment of light lara soft tissue that measures 0.3 x 0.3 x 0.1 cm. The specimen is totally submitted in one cassette. C - Received in fixative is one container labeled with the patient's name and designated descending polyp. The specimen consists of two irregular fragments of light lara soft tissue that in aggregate measure 0.6 x 0.3 x 0.1 cm. The specimen is totally submitted in one cassette. D - Received in fixative is one container labeled with the patient's name and designated sigmoid polyp. The specimen consists of two irregular fragments of light lara soft tissue that in aggregate measure 1.3 x 0.6 x 0.1 cm. The specimen is totally submitted in one cassette. / AM:donavan 10/18/2022 TC:1 CPT: 86575 x4
--- NOTE | 2022-10-17 15:27 | OP.COLON_ITS ---
Patient Name: Rylie Latif Procedure Date: 10/17/2022 2:52 PM Date of : 1970 Age: 52 Procedure: Colonoscopy Indications: Screening for colorectal malignant neoplasm Providers: Omar Vines DO Referring MD: Omar Vines DO Medicines: Monitored Anesthesia Care Patient Profile: This is a 52 year old female. Refer to note in patient chart for documentation of history and physical. Last Colonoscopy: none. The patient's first colonoscopy is today. Complications: No immediate complications. Procedure: Pre-Anesthesia Assessment: - Prior to the procedure, a History and Physical was performed, and patient medications and allergies were reviewed. The patient is competent. The risks and benefits of the procedure and the sedation options and risks were discussed with the patient. All questions were answered and informed consent was obtained. Patient identification and proposed procedure were verified by the physician in the pre-procedure area. Mental Status Examination: alert and oriented. Airway Examination: normal oropharyngeal airway and neck mobility. Respiratory Examination: clear to auscultation. CV Examination: normal. Prophylactic Antibiotics: The patient does not require prophylactic antibiotics. Prior Anticoagulants: The patient has taken no previous anticoagulant or antiplatelet agents. ASA Grade Assessment: II - A patient with mild systemic disease. After reviewing the risks and benefits, the patient was deemed in satisfactory condition to undergo the procedure. The anesthesia plan was to use monitored anesthesia care (MAC). Immediately prior to administration of medications, the patient was re-assessed for adequacy to receive sedatives. The heart rate, respiratory rate, oxygen saturations, blood pressure, adequacy of pulmonary ventilation, and response to care were monitored throughout the procedure. The physical status of the patient was re-assessed after the procedure. After I obtained informed consent, the scope was passed under direct vision. Throughout the procedure, the patient's blood pressure, pulse, and oxygen saturations were monitored continuously. The Colonoscope was introduced through the anus and advanced to the cecum, identified by appendiceal orifice and ileocecal valve. The colonoscopy was performed without difficulty. The patient tolerated the procedure well. The quality of the bowel preparation was adequate. Scope In: 3:01:54 PM Scope Withdrawal Time 0 hours 9 minutes 21 seconds Scope Out: 3:18:33 PM Total Procedure Duration Time 0 hours 16 minutes 39 seconds Findings: The perianal and digital rectal examinations were normal. Three sessile polyps were found in the sigmoid colon, splenic flexure and ascending colon. The polyps were 1 to 2 mm in size. These polyps were removed with a hot snare. Resection and retrieval were complete. Verification of patient identification for the specimen was done. Estimated blood loss was minimal. A few small-mouthed diverticula were found in the sigmoid colon. A 4 mm polyp was found in the ascending colon. The polyp was sessile. The polyp was removed with a jumbo cold forceps. Resection and retrieval were complete. Verification of patient identification for the specimen was done. Estimated blood loss was minimal. Impression: - Three 1 to 2 mm polyps in the sigmoid colon, at the splenic flexure and in the ascending colon, removed with a hot snare. Resected and retrieved. - Diverticulosis in the sigmoid colon. - One 4 mm polyp in the ascending colon, removed with a jumbo cold forceps. Resected and retrieved. Recommendation: - Repeat colonoscopy in 3 years for surveillance. - Continue present medications. Procedure Code(s): --- Professional --- 91425, Colonoscopy, flexible; with removal of tumor(s), polyp(s), or other lesion(s) by snare technique 31597, 59, Colonoscopy, flexible; with biopsy, single or multiple CPT copyright 2017 [employer]. All rights reserved. The codes documented in this report are preliminary and upon gas appliance mechanic review may be revised to meet current compliance requirements. Omar Vines DO 10/17/2022 3:27:33 PM This report has been signed electronically. Number of Addenda: 0 Note Initiated On: 10/17/2022 2:52 PM
--- NOTE | 2022-10-17 15:29 | OP.CCLET_ITS ---
10/17/2022 Blake Zuluaga [address] [place] [address] Re : Colonoscopy procedure for Rylie Latif Dear Dr. Zuluaga This procedure was performed on Monday, October 17, 2022. My impressions and recommendations are as follows: Impressions : - Three 1 to 2 mm polyps in the sigmoid colon, at the splenic flexure and in the ascending colon, removed with a hot snare. Resected and retrieved. - Diverticulosis in the sigmoid colon. - One 4 mm polyp in the ascending colon, removed with a jumbo cold forceps. Resected and retrieved. Recommendations : - Repeat colonoscopy in 3 years for surveillance. - Continue present medications. My findings are described in the full procedure note, which is enclosed. If I can be of further assistance, please feel free to contact me at . Sincerely, Omar Vines, 10/17/2022 3:27:33 PM This report has been signed electronically.
== END 2022-10-17 16:15 | disposition home or self-care (01) ==
LOC: EN 13:00 → AC 13:15
PROVIDERS: PCP Family Medicine; Referring Provider Family Medicine; Visit Provider Internal Medicine Gastroenterology
PROC: 0DJD8ZZ Inspection of Lower Intestinal Tract, Via Natural or Artificial Opening Endoscopic (ICD-10-PCS; CPT 45378; principal; 2022-10-17 13:55)
DX: Z12.11 Encounter for screening for malignant neoplasm of colon (principal); D12.3 Benign neoplasm of transverse colon; D12.2 Benign neoplasm of ascending colon; D12.4 Benign neoplasm of descending colon; D12.5 Benign neoplasm of sigmoid colon; K57.30 Diverticulosis of large intestine without perforation or abscess without bleeding; K21.9 Gastro-esophageal reflux disease without esophagitis; Z79.899 Other long term (current) drug therapy; Z87.891 Personal history of nicotine dependence
CPT/HCPCS: 45385; 45380; 88305; J7120; J2405

== ENCOUNTER → 2023-01-11 | Outpatient (CLI) | payer OTHER, SELFPAY ==
--- NOTE | 2023-01-11 15:51 | BD_ITS ---
STUDY: DUAL ENERGY X-RAY ABSORPTIOMETRY / DXA REASON FOR EXAM: Female, 52 years old. Z780 TECHNIQUE: Bone Mineral Density (BMD) measurements of lumbar spine and bilateral hips were obtained. COMPARISON: Comparison is made with prior study dated January 15, 2013. FINDINGS: Lumbar Spine (L1-L4): g/cm2 (0.835) / T-score (-1.7) / Z-score (-0.7) Findings are suggestive of osteopenia with a moderate fracture risk. Left Femur Total: g/cm2 (0.683) / T-score (-2.1) / Z-score (-1.5) Left Femoral Neck: g/cm2 (0.499) / T-score (-3.2) / Z-score (-2.1) Right Femur Total: g/cm2 (0.741) / T-score (-1.6) / Z-score (-1.0) Right Femoral Neck: g/cm2 (0.614) / T-score (-2.1) / Z-score (-1.1) The T-Scores on the most recent prior examination were: Lumbar Spine (L1-L4): There has been worsening of bone density since the previous examination. Left Femur Total: which represents a worsening of 7.5%. Right Femur Total: which represents a worsening of 3%. BD/Dexa Bone Density Study IMPRESSION: The patient is considered osteoporotic as outlined below according to World Justo Organization (WHO) criteria with a high fracture risk. There has been worsening of bone density since the previous examination. Reference Information: The T-score is the number of standard deviations above or below the standard which is normal for young adults at their peak bone mineral density. The World Health Organization (WHO) interprets the T-scores as follows: Above -1 Normal bone density Between -1 and -2.5 Osteopenia Equal to / or below -2.5 Osteoporosis As a practical clinical guideline, osteopenia may be graded as follows: Mild -1 through -1.5 Moderate -1.6 through -2.0 Severe -2.1 through -2.4 The Z-score is the number of standard deviations above or below age-matched controls. A Z-score of less than -1.5 would be considered abnormal. References: 1. NIH Osteoporosis and Related Bone Diseases www osteo.org 2. International Society for Clinical Densitometry www iscd.org 3. National Osteoporosis Foundation www nof.org Electronically Signed: Justin Gaviria MD at 15:33 EDT ,
== END | disposition home or self-care (01) ==
PROVIDERS: PCP Family Medicine; Referring Provider Family Medicine; Visit Provider Family Medicine
DX: M85.80 Other specified disorders of bone density and structure, unspecified site (principal); Z78.0 Asymptomatic menopausal state
CPT/HCPCS: 77080

== ENCOUNTER → 2023-01-22 | Outpatient (CLI) | payer OTHER, SELFPAY ==
[2023-01-22 17:49] LABS: Vitamin D,25 Hydroxy 36.6 ng/mL
[2023-01-22 17:54] LABS: Hemoglobin A1c 5.4 % (3.8-5.6)
[2023-01-22 18:15] LABS: Anion Gap 5 (5-15); BUN 10 mg/dL (7-18); BUN/Creat Ratio 15.5 RATIO (10-20); Calcium,Total 8.5 mg/dL (8.5-10.1); Chloride 108 mmol/L (98-107); Cholesterol 134 mg/dL (200); Creatinine, Serum 0.64 mg/dL (0.55-1.02); EST Glomerular Filtration Rate 102 mL/min (>60); Est Glom Filt Rate - Afr Amer 123 mL/min (>60); Glucose 128 mg/dL (74-106); High Density Lipoprotein 37 mg/dL; Magnesium 2.2 mg/dL (1.6-2.6); Potassium 3.7 mmol/L (3.5-5.1); Sodium Level 141 mmol/L (136-145); Thyroid Stim Hormone (TSH) 1.24 uIU/mL (0.358-3.74); Triglycerides 263 mg/dL; Very Low Density Lipoprotein 53 mg/dL (5-40)
[2023-01-22 18:21] LABS: Ionized Calcium 4.81 mg/dL (4.36-5.20)
[2023-01-22 23:48] LABS: Ionized Calcium Order ORDER TUBE
[2023-01-23 07:59] LABS: PTHIN 47.4 pg/mL (18.4-80.1)
== END | disposition home or self-care (01) ==
LOC: MTLAB 15:45
PROVIDERS: PCP Family Medicine; Referring Provider Family Medicine; Visit Provider Family Medicine
DX: R73.01 Impaired fasting glucose (principal); M81.0 Age-related osteoporosis without current pathological fracture; E78.5 Hyperlipidemia, unspecified
CPT/HCPCS: 36415; 80048; 80061; 82306; 82330; 83036; 83735; 83970; 84100; 84443

== ENCOUNTER → 2023-09-11 | Outpatient (CLI) | payer OTHER, SELFPAY ==
--- NOTE | 2023-09-11 11:59 | BI_ITS ---
MAMMOGRAPHY - BILATERAL SCREENING REASON FOR EXAM: Female, 53 years old. Routine annual screening examination. PERTINENT HISTORY: Non-contributory. TECHNIQUE: Digital bilateral breast charisse (3D mammographic acquisition) in the CC and MLO projections. 2-D mediolateral oblique (MLO) and craniocaudad (CC) views of both breasts were obtained. CAD: Full Field Digital Mammography with Computer Added Detection was performed. COMPARISON: Comparison is made with prior study dated July 18, 2022 and January 15, 2013. FINDINGS: Breast Composition: The breasts are almost entirely fatty. There are no dominant masses or suspicious calcifications. No other significant abnormalities are identified. There has been no significant change since the prior study. BI/SCRN MAMM (CAD)W/CHARISSE BILAT IMPRESSION: Stable bilateral screening mammogram. Yearly follow-up mammogram recommended. (A) ASSESSMENT CATEGORY: BIRADS Category 1: Negative. A letter regarding these results will be sent to the patient by the facility within 30 days. Approximately 10% of breast cancers are not detected by mammography. A normal mammogram should not delay biopsy of a clinically suspicious abnormality. [id number] Electronically Signed: Justin Gaviria MD at 15:10 EDT ,
== END | disposition home or self-care (01) ==
LOC: OPBI 11:58
PROVIDERS: PCP Family Medicine; Referring Provider Family Medicine; Visit Provider Family Medicine
DX: Z12.31 Encounter for screening mammogram for malignant neoplasm of breast (principal)
CPT/HCPCS: 77063; 77067

== ENCOUNTER → 2023-09-17 | Outpatient (CLI) | payer OTHER, SELFPAY ==
--- NOTE | 2023-09-17 16:30 | RAD_ITS ---
STUDY: X-RAY - RIGHT FOOT CLINICAL: Female, 53 years old. Pain proximal, 5th metatarsal. TECHNIQUE: 3 views of the right foot. COMPARISON: None. FINDINGS: Intact talus, calcaneus, and tarsal bones. There are small plantar and posterior calcaneal spurs. There is mild talonavicular arthrosis with mild dorsal osseous spurring. Normal visualized subtalar, calcaneocuboid, tarsal and tarsometatarsal articulations. Normal metatarsi. Normal metatarsophalangeal joint of the great toe. Normal tibial and fibular sesamoid bones. Normal interphalangeal joint of the great toe. Normal phalanges of the great toe. Normal second through fifth metatarsophalangeal joints. Normal interphalangeal joints and phalanges of the lesser toes. The soft tissue structures are unremarkable. There is no demonstrated fracture. 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 Small plantar and posterior calcaneal spurs. No demonstrated fracture. Electronically Signed: Chencho Jameson MD at 11:20 EDT ,
== END | disposition home or self-care (01) ==
PROVIDERS: PCP Family Medicine; Referring Provider Family Medicine; Visit Provider Family Medicine
DX: M21.6X1 Other acquired deformities of right foot (principal)
CPT/HCPCS: 73630

== ENCOUNTER 2023-10-07 16:37 | Emergency (ER) | payer OTHER, SELFPAY ==
[2023-10-07 16:38] VITALS: BP 109/62; PULSE 68; RESP 16; TEMP 36.8; O2SAT 97; BMI 37.2
--- NOTE | 2023-10-07 17:08 | RAD_ITS ---
INDICATION: L third finger laceration EXAMINATION/TECHNIQUE: X-RAY - LEFT HAND XR Fingers Min 2 Views COMPARISON: None. FINDINGS: No acute fracture or malalignment. No blastic or lytic lesions. No degenerative changes are seen. The soft tissues are unremarkable. RAD/Finger(s) Min 2 Views IMPRESSION: No acute radiographic abnormalities. Electronically Signed: Altaf Melara MD at 18:17 EDT ,
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
[2023-10-07] MEDS: Diphth,Pertuss(Acell),Tet Vac 0.5 ML Vial IM (17:30)
[2023-10-07] MEDS: Lidocaine 1% (20 ml mdv) 20 ML Vial 10 ML INFILT (17:31)
[2023-10-07 18:22] VITALS: BP 109/62; PULSE 68; RESP 16; TEMP 36.8; O2SAT 97
== END 2023-10-07 18:23 | disposition home or self-care (01) ==
PROVIDERS: Emergency Provider Emergency Medicine; PCP Family Medicine; Visit Provider Emergency Medicine
DX: S61.213A Laceration without foreign body of left middle finger without damage to nail, initial encounter (principal); Z23 Encounter for immunization; W26.0XXA Contact with knife, initial encounter; Y93.G1 Activity, food preparation and clean up; Z87.891 Personal history of nicotine dependence; Z79.899 Other long term (current) drug therapy
CPT/HCPCS: 12001; 73140; 90471; 90715; 99283

== ENCOUNTER → 2023-10-16 | Outpatient (CLI) | payer OTHER, SELFPAY ==
[2023-10-16 10:26] LABS: Absolute Lymphocyte Count 2.23 X10^3/uL (0.83-4.51); Absolute Neutrophil Count 4.6 X10^3/uL (2.0-7.7); Basophil# 0.02 X10^3/uL; Basophil% 0.3 % (0-1); Eosinophil# 0.28 X10^3/uL; Eosinophils% 3.6 % (0-5); Hematocrit 37.9 % (37-47); Hemoglobin 12.7 g/dL (12.0-15.0); Lymphocyte # 2.23 X10^3/ul (0.83-4.51); Mean Corp Hgb Conc 33.5 g/dL (32-36); Mean Corpuscular Hgb 28.3 pg (27.0-32.0); Mean Corpuscular Volume 84.6 fL (81-99); Mean Platelet Vol. 10.8 fl (6.2-12.0); Monocyte# 0.56 X10^3/uL; Monocyte% 7.3 % (0-10); NRBC Flagged by Analyzer 0 % (0-5); Neutrophil # 4.59 X10^3/uL (2.7-7.7); Neutrophil % 59.5 % (47-70); Platelet Count 190 K/mm3 (150-450); RBC Distribution Width CV 12.7 % (11.6-14.6); RBC Distribution Width SD 38.5 fl (35.1-43.9); Red Blood Count 4.48 M/mm3 (4.2-5.4); White Blood Count 7.7 K/mm3 (4.4-11.0)
[2023-10-16 10:35] LABS: PTHIN 50.4 pg/mL (18.4-80.1)
[2023-10-16 10:39] LABS: ALB/GLOB Ratio 1.1 RATIO (0.9-2.4); AST(SGOT) 16 U/L (15-37); Alanine Aminotransfer ALT/SGPT 30 U/L (13-56); Albumin, Serum 3.4 g/dL (3.2-5.0); Alkaline Phosphatase 97 U/L (45-117); Anion Gap 7 (5-15); BUN 15 mg/dL (7-18); BUN/Creat Ratio 21.7 RATIO (10-20); Calcium,Total 8.5 mg/dL (8.5-10.1); Chloride 107 mmol/L (98-107); Cholesterol 130 mg/dL (200); Creatinine, Serum 0.69 mg/dL (0.55-1.02); EST Glomerular Filtration Rate 94 mL/min (>60); Est Glom Filt Rate - Afr Amer 113 mL/min (>60); Ferritin 89 ng/mL (8-252); Globulin 3.2 g/dL (2.2-4.2); Glucose 106 mg/dL (74-106); High Density Lipoprotein 39 mg/dL; Magnesium 2.3 mg/dL (1.6-2.6); Potassium 3.8 mmol/L (3.5-5.1); Protein, Total 6.6 g/dL (6.4-8.2); Sodium Level 141 mmol/L (136-145); Triglycerides 223 mg/dL; Very Low Density Lipoprotein 45 mg/dL (5-40); Vitamin B12 1029 pg/mL (211-911); Vitamin D,25 Hydroxy 36.7 ng/mL
[2023-10-18 06:10] LABS: Zinc, Plasma or Serum 72 ug/dL (44-115)
[2023-10-29 13:40] LABS: (24 HR) Urine Calcium 180.2 mg/24 HR (42.0-353.0); 24HR UR TOTAL VOLUME 2650 ml; Calcium Urine pH Range 2; Urine Calcium (Random) 6.8 mg/dL (Not Estab.)
== END | disposition home or self-care (01) ==
LOC: MTLAB 07:21
PROVIDERS: PCP Family Medicine; Referring Provider Internal Medicine Endocrinology, Diabetes & Metabolism; Visit Provider Internal Medicine Endocrinology, Diabetes & Metabolism
DX: K90.9 Intestinal malabsorption, unspecified (principal); E55.9 Vitamin D deficiency, unspecified; M81.0 Age-related osteoporosis without current pathological fracture; E78.1 Pure hyperglyceridemia
CPT/HCPCS: 36415; 80053; 80061; 81050; 82306; 82340; 82607; 82728; 83735; 83970; 84630; 85025

== ENCOUNTER → 2023-10-31 | Outpatient (CLI) | payer OTHER, SELFPAY ==
[2023-11-02 16:10] LABS: Gastrin, Serum 19 pg/mL (0-115)
[2023-11-04 14:07] LABS: Beef <0.10 kU/L (Class 0); Chocolate <0.10 kU/L (Class 0); Codfish <0.10 kU/L (Class 0); Corn <0.10 kU/L (Class 0); Egg, Whole <0.10 kU/L (Class 0); Milk (Cow) <0.10 kU/L (Class 0); Mussels <0.10 kU/L (Class 0); Peanut <0.10 kU/L (Class 0); Pork <0.10 kU/L (Class 0); Salmon <0.10 kU/L (Class 0); Shrimp <0.10 kU/L (Class 0); Soybean <0.10 kU/L (Class 0); Tuna <0.10 kU/L (Class 0); Wheat <0.10 kU/L (Class 0)
== END | disposition home or self-care (01) ==
LOC: LAB 09:32
PROVIDERS: PCP Family Medicine; Referring Provider Internal Medicine Gastroenterology; Visit Provider Internal Medicine Gastroenterology
DX: K21.9 Gastro-esophageal reflux disease without esophagitis (principal)
CPT/HCPCS: 36415; 82941; 86003; 86005

== ENCOUNTER → 2023-11-05 | Outpatient (CLI) | payer OTHER, SELFPAY ==
--- NOTE | 2023-11-05 17:03 | US_ITS ---
STUDY: ULTRASOUND OF THE FEMALE PELVIS - COMPLETE REASON FOR EXAM: Female, 53 years old. Polyp of corpus uteri LMP: Patient is postmenopausal. TECHNIQUE: Transvaginal TECHNICAL QUALITY: Adequate. COMPARISON: None. FINDINGS: The uterus is anteverted and is in a midline position. The uterus measures 6 cm x 3.1 cm x 2 cm. The cervix is of heterogeneous echotexture. A small amount of fluid is seen in the endocervical canal. The endometrium measures 1.3 mm in thickness, and is hyperechoic. There is no demonstrated endometrial mass. There is no demonstrated myometrial mass. I.U.D. - The patient does not have an I.U.D. The right ovary is visualized. The right ovary measures 1.7 cm x 1.2 cm x 1.1 cm. There is no right ovarian cyst or ovarian mass. There is no visualized right adnexal mass or complex lesion. There is normal arterial and normal venous vascularity. The left ovary is visualized. The left ovary measures 1.5 cm x 1.1 cm x 1.5 cm. There is no left ovarian cyst or ovarian mass. There is no visualized left adnexal mass or complex lesion. There is normal arterial and normal venous vascularity. There is no fluid in the cul-de-sac. US/Transvaginal Non- IMPRESSION: Heterogeneous appearance of the cervix. Small amount of fluid is seen in the endocervical canal. Electronically Signed: Justin Gaviria MD at 14:05 EDT ,
== END | disposition home or self-care (01) ==
LOC: US 17:01
PROVIDERS: PCP Family Medicine; Referring Provider Nurse Practitioner Family; Visit Provider Nurse Practitioner Family
DX: N84.0 Polyp of corpus uteri (principal); Z78.0 Asymptomatic menopausal state
CPT/HCPCS: 76830

== ENCOUNTER 2023-11-08 05:20 | Day surgery (SDC) | payer OTHER, SELFPAY ==
[2023-11-08] VITALS (7 sets, daily range): BP systolic 95–96; BP diastolic 47–57; PULSE 62–68; RESP 16; TEMP 36.1; O2SAT 95–100; BMI 35.2
--- NOTE | 2023-11-08 | IMM_PTH ---
PATIENT: JEREMIAH ANDERSON LOC: EN U#:[id number] AGE/SX: 53/F ROOM: RE11/08/[address]: Dr. Omar Vines DO : 1970 BED: DIS: 11/08/2023 SPEC #: [id number] RECD: 11/09/23 10:11 STATUS: CARLOS REQ #: [id number] PILAR: 11/08/23 00:[address]: Omar Vines DEPT: IMMUNOHISTOCHEMISTRY RECD BY: Randall Mckeon ENTERED: 11/09/23 10:11 SP TYPE: IMMUNO AMAN DR: Dr. Altaf Zuluaga MD Tissues: Esophagus, NOS Procedures: P53 (initial) KI-67 (add) PHYSICIAN & INSTITUTION [place] [id number] SPECIMEN INFORMATION: Tissue Source: Distal esophagus Clinical Info: GERD Specimen Number: [id number] CPT code: 11617,97405 METHODOLOGY: Deparaffinized sections of prefer/formalin-fixed tissue or PAP/DQ stained slides are incubated with monoclonal/polyclonal antibodies/oligonucleotide probes. Localization is made via biotin free immunoperoxidase method. Appropriate controls are performed and reacted as expected. Results on target cell population are indicated in the following table: RESULTS: ANTIBODY / CLONE RESULT P53 (DO-7) negative (null pattern) Ki-67 (30-9) positive, low These tests were developed and their performance characteristics determined by [facility]. They may not have been cleared or approved by the U.S. Food and Drug Administration. The FDA has determined that such clearance or approval is not necessary. The above immunohistochemical/dualISH markers are ordered and reviewed by the Pathologist. INTERPRETATION: Distal esophagus, biopsy: Negative for dysplasia. 11/12/2023
[2023-11-08] MEDS: Lactated Ringers 1,000 ML 15 ML IV (06:06)
--- NOTE | 2023-11-08 06:30 | EGD_PTH ---
PATIENT: JEREMIAH ANDERSON LOC: EN U#:[id number] AGE/SX: 53/F ROOM: RE11/08/[address]: Dr. Omar Vines DO : 1970 BED: DIS: 11/08/2023 SPEC #: [id number] RECD: 11/08/23 10:28 STATUS: CARLOS REBoris #: [id number] PILAR: 11/08/23 06:[address]: Omar Vines DEPT: SURGICAL PATHOLOGY RECD BY: Christi Fowler ENTERED: 11/08/23 11:21 SP TYPE: EGD BIOPSY AMAN DR: Dr. Altaf Zuluaga MD Tissues: Esophagus, NOS Procedures: Special Stain Group I Surgery Specimen Level IV Alcian Blue/PAS (control) HEADER OPERATION: EGD PRE-OP DIAGNOSIS: GERD TISSUE SUBMITTED: Distal esophagus biopsy MICROSCOPIC DIAGNOSIS Distal esophagus, biopsy: Fragments of gastroesophageal mucosa with focal intestinal metaplasia (goblet cell metaplasia) consistent with Cross's esophagus. Moderate acute and chronic inflammation. Negative for dysplasia. See comment. Amado 11/09/2023 COMMENT Alcian blue/PAS stain with matched control supports the above diagnosis. Immunohistochemistry ([id number]) for P53 and Ki-67 will be performed and results will be reported separately. MICROSCOPIC DESCRIPTION Slides are reviewed. GROSS DESCRIPTION Received in fixative is one container labeled with the patient's name and designated Distal esophagus biopsy. The specimen consists of multiple irregular fragments of light lara soft tissue that in aggregate measure 1.5 x 0.6 x 0.1 cm. The specimen is totally submitted in one cassette. 11/08/2023 TC:5 CPT:05990, 41784
--- NOTE | 2023-11-08 06:34 | PCM.HP.BLA ---
History and Physical Date of Admission: 11/08/23 JEREMIAH ANDERSON, is a 53 F who presents to the office today for initial consult. Colonoscopy 10.17.22 Three 1 to 2 mm polyps in the sigmoid colon, at the splenic flexure and in the ascending colon, removed with a hot snare. Resected and retrieved. Diverticulosis in the sigmoid colon. One 4 mm polyp in the ascending colon, removed with a jumbo cold forceps. Resected and retrieved. *BGI established 10.31.23 pt reports a 25 year history of GERD. She currently has her symptoms managed through supplements and occasional omeprazole and TUMS. Pt reports HB if she eats right before bed and with tomato-based foods. Pt states her aunt of esophageal cancer and would like to get and EGD; pt states she has never had an upper scope. ROS Const Constitutional: No fatigue, fever(s) or weight change ENT ENT: No difficulty swallowing Gastro GI: No abdominal pain, belching, bloating, change in bowel habits, change in stool character, coffee ground emesis, constipation, cramping, diarrhea, heartburn, difficulty swallowing, feeling full early, excessive flatus, incontinent of stools, Vomiting blood/hematemesis, Blood in stool, loose stools, Black,tarry stools, nausea/dyspepsia, pain with swallowing, vomiting or other Musc Musculoskeletal: Positive for muscle cramps, numbness, stiffness, tingling and Arthritis; No joint pain Skin Skin: No yellowing of the eye or itchy eyes Neuro Neurology: Positive for numbness and tingling Psych Psychiatric: No anxiety and No depression Endo Endocrine: No fatigue or weight change Aller/Imm Allergy/Immunologic: No itchy eyes Abdullahi/Lymp Hematologic/Lymphatic: No easy bleeding or easy bruising Exam Const General: cooperative, healthy appearing, comfortable, no acute distress, well developed and well groomed Nutritional Appearance: average body habitus and well nourished Orientation: alert, awake and oriented x3 HENMT Head: normocephalic and atraumatic Ears: hearing grossly normal bilaterally, external ears normal and TM's normal bilaterally Nose: mucous membranes and turbinates abnormal erythematous and nasal discharge Face and sinus: sinus tenderness maxillary Throat: posterior oropharynx abnormal erythema Resp Effort & Inspection: normal respiratory effort, able to speak in complete sentences, symmetric chest movement and cough Auscultation: Bilateral: Clear to Auscultation Cardio Rate: regular rate Rhythm: regular rhythm Heart Sounds: no murmurs Assessment and Plan Assessment and Plan (1) Gastroesophageal reflux disease: Plan: She has a history of gastroesophageal reflux disease. Unfortunately she has previous diagnosis of osteoporosis so she has been trying to avoid proton pump inhibitors. She also has a history of duodenal gastric reflux disease secondary to previous duodenal switch procedure for weight loss. She did previously lose 130 pounds. She has avoided diabetes with her previous surgery. She takes a lot of supplementations due to mild source of issues from her previous gastric bypass surgery. She has a family history of esophageal cancer so we will screen her for Cross's esophagus. Pending what we see on the upper scope she may need a gastric emptying study and subsequent gastrin levels along with food allergy testing. Orders: Orders EGD 11/02/23 K21.9 - Gastro-esophageal reflux disease without esophagitis Gastrin, Serum Today K21.9 - Gastro-esophageal reflux disease without esophagitis Allergen, Food Profile 14 Today K21.9 - Gastro-esophageal reflux disease without esophagitis I have examined the patient and the H&P has been reviewed. There are no clinical changes since date of exam.
--- NOTE | 2023-11-08 06:36 | PCM.PRE.AN2 ---
ASA Classification* ASA Classification ASA Classification: 2 Assessment & Plan Anesthesia* Anesthesia Assessment Anesthesia Assessment: Discussed sedation and/or anesthesia options, risks, benefits, and alternatives with patient/parents/legal guardian/POA. Questions invited. The patient/parents/legal guardian/POA seems to understand and agrees to proceed with anesthesia plan. Reviewed the physical assessment, medical history, allergy history and patient home medications list prior to surgery/procedure/anesthetic and documented any changes. Performed airway and anesthesia risk assessments. Anesthesia Type Anesthesia Type: MAC History Source History Obtained from:: Patient and Chart Anesthesia Focused Assessment* Temperature: 96.9 F Pulse Rate: 62 Blood Pressure: 95/56 Respiratory Rate: 16 Pulse Ox: 100 Airway Assessment Mouth opens: >3 cm Mallampati Score: II Teeth Condition: Intact Neck Range of motion (ROM): Full ROM Focused Labs Anesthesia Preop lab: CBC WBC 7.7 K/mm3 (4.4-11.0) 10/16/23 07:23 RBC 4.48 M/mm3 (4.2-5.4) 10/16/23 07:23 Hgb 12.7 g/dL (12.0-15.0) 10/16/23 07:23 Hct 37.9 % (37-47) 10/16/23 07:23 Plt Count 190 K/mm3 (150-450) 10/16/23 07:23 CHEMISTRY Potassium 3.8 mmol/L (3.5-5.1) 10/16/23 07:23 Sodium 141 mmol/L (136-145) 10/16/23 07:23 Magnesium 2.3 mg/dL (1.6-2.6) 10/16/23 07:23 Phosphorus 3.0 mg/dL (2.5-4.9) 01/22/23 15:47 BUN 15 mg/dL (7-18) 10/16/23 07:23 Creatinine 0.69 mg/dL (0.55-1.02) 10/16/23 07:23 Glucose 106 mg/dL (74-106) 10/16/23 07:23 TSH 1.24 uIU/mL (0.358-3.74) 01/22/23 15:47 COAG Pre-Assessment Diagnosis/Proposed Procedure Planned Operative Procedure(s): EGD Anesthesia History 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 When Was Last Pacemaker Check QUESTION #4 FULL TEXT: You/Your Family Experience fever (hyperthermia) with Anesthesia Last Oral Intake Last Oral intake: Last Oral Intake NPO since 21:00 11/08/23 06:07 Meds taken in AM with sips of No 11/08/23 06:07 water? 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 Female Yes 11/02/23 11:58 HX of Motion Sickness No 11/02/23 11:58 HX of N/V After Surgery No 11/02/23 11:58 Non-Smoker Yes 11/02/23 11:58 Duration of Surgery greater No 11/02/23 11:58 than 60 minutes Number of Risk Factors 2 11/02/23 11:58 PONV Score Moderate Risk 11/02/23 11:58 Height & Weight Height & Weight: Anesthesia: Height & Weight Height 5 ft 5 in 11/08/23 06:07 Weight: 96 kg 11/08/23 06:07 Body Mass Index (BMI) 35.2 11/08/23 06:07 Respiratory Assessment Respiratory Assessment - movie editor: Respiratory Tract Infection Hx - movie editor Hx Respiratory Tract Infection No 11/02/23 11:58 STOP Sleep Apnea STOP Sleep Apnea - movie editor: STOP Sleep Apnea - movie editor Hx Hypertension No 11/02/23 11:58 Hx Sleep Apnea No 11/02/23 11:58 CPAP BIPAP Do you snore loudly (louder No 11/02/23 11:58 than talking or can be heard Do you often feel tired/ No 11/02/23 11:58 fatigued/ sleepy during daytime? Has anyone observed you stop No 11/02/23 11:58 breathing during sleep? STOP Results Negative 11/02/23 11:58 QUESTION #5 FULL TEXT : Do you snore loudly (louder than talking or can be heard through closed doors)? 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 Specify any problems Hx of Preganancy in last 3 N/A 11/02/23 11:58 Months Nurse Filling Out Transfusion NBUCHER 11/02/23 11:58 & Questions: Date: 11/02/23 11/02/23 11:58 Time: 11:59 11/02/23 11:58 Patient unable to answer at this time (ie. confused, unrespo /Reproduction History /Reproductive History - movie editor: /Reproductive Hx- movie editor Hx Now No 11/02/23 11:58 Gestational Age (in weeks): EDC: Hx Hx Para Hx Section SAB No 11/02/23 11:58 Active Medications Active Medications: Current Medications Generic Name Dose Route Start Last Admin Trade Name Freq PRN Reason Stop Dose Admin Lactated Ringer's 1,000 mls @ 15 mls/hr 11/08/23 05:45 11/08/23 06:06 IV 15 mls/hr .Q48H MISSAEL Administration PFSH Medical History Arthritis Laceration of left middle finger Hypertriglyceridemia Malabsorption Osteoporosis History of stress test Normal stress echocardiogram Wears glasses Back pain Gastric reflux Former smoker Shortness of breath on exertion COVID-19 BPD-DS Home Medications ?Medication ?Instructions ?Recorded ?Last Taken ?Type Calcium Citrate 800 mg PO .QID 10/04/23 Unknown History Catapleat B 3 tab PO BID 10/04/23 Unknown History Collagen 1 tab PO DAILY 10/04/23 Unknown History Fibra Syntropy 1 tab PO BID 10/04/23 Unknown History Reform Fortifier 1 tab PO BID 10/04/23 Unknown History Glutomine Complex 1 tab PO DAILY 10/04/23 Unknown History Hypo Zymase 2 tab PO TIDWMEAL 10/04/23 Unknown History Lactobacillus acidophilus 1,000 mmu cells PO DAILY 10/04/23 Unknown History (Acidophilus capsule) Methyl B12 8 spray intranasal DAILY 10/04/23 Unknown History Tuna [employer] 1 tab PO DAILY 10/04/23 Unknown History Vitamin C +Iron 2 tab PO DAILY 10/04/23 Unknown History acetylcysteine 600 mg capsule (NAC) 600 mg PO DAILY 10/04/23 Unknown History boron 6 mg tablet 12 mg PO BID 10/04/23 Unknown History cholecalciferol (vitamin D3) 1,250 1,250 mcg PO 3XW 10/04/23 Unknown History mcg (50,000 unit) capsule magnesium citrate 100 mg capsule 100 mg PO BID 10/04/23 Unknown History omeprazole 40 mg capsule,delayed 40 mg PO DAILY PRN GERD 10/04/23 Unknown History release vit D3 50 mcg-vitamin K1 500 1 cap PO DAILY 10/04/23 Unknown History mcg-MK4 1,500 mcg-MK7 180 mcg capsule vitamin A 2,400 mcg capsule 2,400 mcg PO DAILY 10/04/23 Unknown History vitamin E mixed 400 unit tablet 400 unit PO BID 10/04/23 Unknown History zinc gluconate 50 mg tablet 50 mg PO DAILY 10/04/23 Unknown History cephalexin 500 mg capsule 500 mg PO TID #15 caps 10/07/23 Unknown Rx Allergy/AdvReac Type Severity Reaction Status Date / Time No Known Allergies Allergy Verified 11/08/23 06:04 Family History Father Kidney disease Hypertension Heart disease Diabetes Mother COPD (chronic obstructive pulmonary disease) Surgical History Hx of tubal ligation Status post biliopancreatic diversion with duodenal switch History of appendectomy History of Social History (Reviewed 11/08/23 @ 06:37 by Real Maya Smoking Status: Former smoker pack-years: 12 Tobacco: How many years used: 12 how long ago did patient quit smokin years ago alcohol intake: current alcohol intake frequency: holidays/special occasions only substance use type: does not use Review of Systems (Anesthesia) ROS Narrative System reviewed and no additional complaints, except as documented.
--- NOTE | 2023-11-08 07:02 | PCM.POST.ANE ---
Anesthesia: Postop Eval I Current Vital Signs Temperature: 97 F Pulse Rate: 67 Blood Pressure: 95/47 Respiratory Rate: 16 Pulse Ox: 97 Oxygen Delivery Method: Room Air Assessment Airway patent: Yes Spontaneous unlabored respirations: Yes Mental status: Asleep nausea: No Vomiting: No Anesthesia Complication: No Fluid Hydration Crystalloid volume administer (ml): 400 Total IV fluid infused: 400 Progress Note Anesthesia document: Postop Eval 1 completed: Yes
--- NOTE | 2023-11-08 07:05 | OP.EGD_ITS ---
Patient Name: Rylie Latif Procedure Date: 11/08/2023 6:39 AM Date of : 1970 Age: 53 Procedure: Upper GI endoscopy Indications: Heartburn Providers: Omar Vines DO Referring MD: Blake Zuluaga Medicines: Monitored Anesthesia Care Patient Profile: This is a 53 year old female. Refer to note in patient chart for documentation of history and physical. Patient has symptoms of acute heartburn. Complications: No immediate complications. Procedure: Pre-Anesthesia Assessment: - Prior to the procedure, a History and Physical was performed, and patient medications and allergies were reviewed. The patient is competent. The risks and benefits of the procedure and the sedation options and risks were discussed with the patient. All questions were answered and informed consent was obtained. Patient identification and proposed procedure were verified by the physician in the pre-procedure area. Mental Status Examination: alert and oriented. Airway Examination: normal oropharyngeal airway and neck mobility. Respiratory Examination: clear to auscultation. CV Examination: normal. Prophylactic Antibiotics: The patient does not require prophylactic antibiotics. Prior Anticoagulants: The patient has taken no anticoagulant or antiplatelet agents. ASA Grade Assessment: II - A patient with mild systemic disease. After reviewing the risks and benefits, the patient was deemed in satisfactory condition to undergo the procedure. The anesthesia plan was to use monitored anesthesia care (MAC). Immediately prior to administration of medications, the patient was re-assessed for adequacy to receive sedatives. The heart rate, respiratory rate, oxygen saturations, blood pressure, adequacy of pulmonary ventilation, and response to care were monitored throughout the procedure. The physical status of the patient was re-assessed after the procedure. After obtaining informed consent, the endoscope was passed under direct vision. Throughout the procedure, the patient's blood pressure, pulse, and oxygen saturations were monitored continuously. The Endoscope was introduced through the mouth, and advanced to the second part of duodenum. The upper GI endoscopy was accomplished without difficulty. The patient tolerated the procedure well. Scope In: 6:47:55 AM Scope Out: 6:54:39 AM Total Procedure Duration Time 0 hours 6 minutes 44 seconds Findings: There were esophageal mucosal changes suspicious for short-segment Cross's esophagus present in the lower third of the esophagus. The maximum longitudinal extent of these mucosal changes was 3 cm in length. Mucosa was biopsied with a cold forceps for histology in a targeted manner at intervals of 1 cm in the lower third of the esophagus. One specimen bottle was sent to pathology. Verification of patient identification for the specimen was done. Estimated blood loss was minimal. A small hiatal hernia was present. No other significant abnormalities were identified in a careful examination of the stomach. There was evidence of a widely patent duodenal switch in the anastomosis. This was characterized by healthy appearing mucosa. 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 Biopsied. - Small hiatal hernia. - Widely patent duodenal switch, characterized by healthy appearing mucosa was found. Recommendation: - Discharge patient to home. - Resume previous diet. - Continue present medications. - Await pathology results. Procedure Code(s): --- Professional --- 54501, Esophagogastroduodenoscopy, flexible, transoral; with biopsy, single or multiple CPT copyright 2021 [employer]. All rights reserved. The codes documented in this report are preliminary and upon inpatient coder review may be revised to meet current compliance requirements. Omar Vines DO 11/08/2023 7:04:28 AM This report has been signed electronically. Number of Addenda: 0 Note Initiated On: 11/08/2023 6:39 AM
--- NOTE | 2023-11-08 07:05 | OP.CCLET_ITS ---
11/08/2023 Blake Zuluaga [address] [place] [address] Re : Upper GI endoscopy procedure for Rylie Latif Dear Dr. Zuluaga This procedure was performed on October. My impressions and recommendations are as follows: Impressions : - Esophageal mucosal changes suspicious for short-segment Cross's esophagus. Biopsied. - Small hiatal hernia. - Widely patent duodenal switch, characterized by healthy appearing mucosa was found. Recommendations : - Discharge patient to home. - Resume previous diet. - Continue present medications. - Await pathology results. My findings are described in the full procedure note, which is enclosed. If I can be of further assistance, please feel free to contact me at . Sincerely, Omar Vines, 11/08/2023 7:04:28 AM This report has been signed electronically.
--- NOTE | 2023-11-08 07:05 | PCM.POSTANE2 ---
Anesthesia Postop Eval I Sum Postop Eval Completion status Anesthesia document: Postop Eval 1 completed: Yes Anesthesia Postop Eval I Summary Anesthesia Postop Eval I Summary: Anesthesia Postop Eval I: Assessment Summary Airway patent Yes 11/08/23 07:03 [email or web address] Spontaneous unlabored Yes 11/08/23 07:03 [email or web address] respirations Mental status Asleep 11/08/23 07:03 [email or web address] nausea No 11/08/23 07:03 [email or web address] Vomiting No 11/08/23 07:03 [email or web address] Anesthesia Postop Eval I: Fluid Summary Crystalloid volume administer 400 11/08/23 07:03 [email or web address] (ml) Colloids volume administered ( ml) Blood Product volume administered (ml) Total IV fluid infused 400 11/08/23 07:03 [email or web address] Anesthesia Postop Eval I: Summary Notes Anesthesia Complication No 11/08/23 07:03 [email or web address] Anesthesia Complication Comment: Post-operative progress note Anesthesia: Postop Eval II Evaluation Mental status: Awake Pain Level: 0 nausea: No Vomiting: No
== END 2023-11-08 07:57 | disposition home or self-care (01) ==
LOC: EN 05:21 → AC 05:22
PROVIDERS: PCP Family Medicine; Referring Provider Family Medicine; Visit Provider Internal Medicine Gastroenterology
PROC: 0DJ08ZZ Inspection of Upper Intestinal Tract, Via Natural or Artificial Opening Endoscopic (ICD-10-PCS; CPT 43235; principal; 2023-11-08 06:25)
DX: K44.9 Diaphragmatic hernia without obstruction or gangrene (principal); K21.9 Gastro-esophageal reflux disease without esophagitis; Z79.899 Other long term (current) drug therapy; Z98.84 Bariatric surgery status; Z80.0 Family history of malignant neoplasm of digestive organs; K22.70 Barrett's esophagus without dysplasia
CPT/HCPCS: 43239; 88305; 88312; 88341; 88342; J7120; J2405

== ENCOUNTER → 2023-12-17 | Outpatient (CLI) | payer OTHER, SELFPAY ==
[2023-12-17 10:33] LABS: Vitamin D,25 Hydroxy 30.9 ng/mL
[2023-12-22 15:08] LABS: HPV APTIMA, High Risk Negative (Negative)
== END | disposition home or self-care (01) ==
LOC: LAB 09:28 → LABSPEC 12:35
PROVIDERS: PCP Family Medicine; Referring Provider Nurse Practitioner Women's Health; Visit Provider Nurse Practitioner Women's Health
DX: Z12.4 Encounter for screening for malignant neoplasm of cervix (principal); Z13.21 Encounter for screening for nutritional disorder; Z80.3 Family history of malignant neoplasm of breast
CPT/HCPCS: 36415; 82306; 87624; 88175; G0145

== ENCOUNTER → 2024-03-17 | Outpatient (CLI) | payer OTHER, SELFPAY ==
--- NOTE | 2024-03-17 12:30 | RAD_ITS ---
EXAM: XR LEFT RIBS AND AP CHEST, 3 OR MORE VIEWS CLINICAL INDICATION: tripped over dog and chair hit left ribs TECHNIQUE: Frontal and oblique views of the left ribs and frontal view of the chest. COMPARISON: Chest radiograph 02/22/2022 FINDINGS: LUNGS AND PLEURAL SPACES: Normal. No consolidation or edema. No pneumothorax. No effusion. HEART: Normal. Normal heart size. MEDIASTINUM: No mediastinal or hilar mass. BONES/JOINTS: Stable chronic fracture of the right sixth rib. No acute rib fracture. RAD/Ribs Uni Min 3V w/PA Chest IMPRESSION: No acute findings in the chest or ribs. Electronically Signed: Matheus Quiroga MD at 14:29 EST ,
== END | disposition home or self-care (01) ==
LOC: RAD 12:25
PROVIDERS: PCP Family Medicine; Referring Provider Nurse Practitioner; Visit Provider Nurse Practitioner
DX: R07.81 Pleurodynia (principal)
CPT/HCPCS: 71101

== ENCOUNTER 2024-05-30 05:23 | Day surgery (SDC) | payer OTHER, SELFPAY ==
[2024-05-30] VITALS (8 sets, daily range): BP systolic 106–126; BP diastolic 51–78; PULSE 62–67; RESP 16–18; TEMP 36.2–36.3; O2SAT 94–979; BMI 35.1
--- NOTE | 2024-05-30 06:21 | PCM.PRE.AN2 ---
ASA Classification* ASA Classification ASA Classification: 2 Assessment & Plan Anesthesia* Anesthesia Assessment Anesthesia Assessment: Discussed sedation and/or anesthesia options, risks, benefits, and alternatives with patient/parents/legal guardian/POA. Questions invited. The patient/parents/legal guardian/POA seems to understand and agrees to proceed with anesthesia plan. Reviewed the physical assessment, medical history, allergy history and patient home medications list prior to surgery/procedure/anesthetic and documented any changes. Performed airway and anesthesia risk assessments. Anesthesia Type Anesthesia Type: General History Source History Obtained from:: Patient and Chart Anesthesia Focused Assessment* Temperature: 97.2 F Pulse Rate: 62 Blood Pressure: 126/51 Respiratory Rate: 18 Pulse Ox: 97 Oxygen Delivery Method: Room Air Airway Assessment Mouth opens: >3 cm Mallampati Score: II Teeth Condition: Intact Neck Range of motion (ROM): Full ROM Focused Labs Anesthesia Preop lab: CBC WBC 7.7 K/mm3 (4.4-11.0) 10/16/23 07:10/16/23 RBC 4.48 M/mm3 (4.2-5.4) 10/16/23 07:23 10/16/23 Hgb 12.7 g/dL (12.0-15.0) 10/16/23 07:23 10/16/23 Hct 37.9 % (37-47) 10/16/23 07:23 10/16/23 Plt Count 190 K/mm3 (150-450) 10/16/23 07:23 10/16/23 CHEMISTRY Potassium 3.8 mmol/L (3.5-5.1) 10/16/23 07:23 10/16/23 Sodium 141 mmol/L (136-145) 10/16/23 07:23 10/16/23 Magnesium 2.3 mg/dL (1.6-2.6) 10/16/23 07:23 10/16/23 Phosphorus 3.0 mg/dL (2.5-4.9) 01/22/23 15:47 01/22/23 BUN 15 mg/dL (7-18) 10/16/23 07:23 10/16/23 Creatinine 0.69 mg/dL (0.55-1.02) 10/16/23 07:23 10/16/23 Glucose 106 mg/dL (74-106) 10/16/23 07:23 10/16/23 TSH 1.24 uIU/mL (0.358-3.74) 01/22/23 15:47 01/22/23 COAG Pre-Assessment Diagnosis/Proposed Procedure Planned Operative Procedure(s): EGD Anesthesia History Anesthesia History - paying teller: Anesthesia History - paying teller Hx Hospitalization No 05/29/24 13:27 Any Problems With Anesthesia No 05/29/24 13:27 Cholinesterase deficiency No 05/29/24 13:27 You/Your Family Experience No 05/29/24 13:27 fever (hyperthermia) with Relationship Recent Exposure to Contagious No 05/30/24 05:45 Disease Does patient have nerve No 05/29/24 13:27 stimulator Patient instructed to have device shut off --Does patient have Pacemaker No 05/30/24 05:46 or ICD? When Was Last Pacemaker Check QUESTION #4 FULL TEXT: You/Your Family Experience fever (hyperthermia) with Anesthesia Last Oral Intake Last Oral intake: Last Oral Intake NPO since 22:00 05/30/24 05:46 Meds taken in AM with sips of No 05/30/24 05:46 water? Meds patient instructed to take am of surgery PONV PONV - paying teller: PONV - paying teller Female Yes 05/29/24 13:27 HX of Motion Sickness No 05/29/24 13:27 HX of N/V After Surgery No 05/29/24 13:27 Non-Smoker No 05/29/24 13:27 Duration of Surgery greater No 05/29/24 13:27 than 60 minutes Number of Risk Factors 1 05/29/24 13:27 PONV Score Low Risk 05/29/24 13:27 Height & Weight Height & Weight: Anesthesia: Height & Weight Height 5 ft 5 in 05/30/24 05:46 Weight: 95.799 kg 05/30/24 05:46 Body Mass Index (BMI) 35.1 05/30/24 05:46 Respiratory Assessment Respiratory Assessment - paying teller: Respiratory Tract Infection Hx - paying teller Hx Respiratory Tract Infection No 05/29/24 13:27 STOP Sleep Apnea STOP Sleep Apnea - paying teller: STOP Sleep Apnea - paying teller Hx Hypertension No 05/29/24 13:27 Hx Sleep Apnea No 05/29/24 13:27 CPAP BIPAP Do you snore loudly (louder No 05/29/24 13:27 than talking or can be heard Do you often feel tired/ No 05/29/24 13:27 fatigued/ sleepy during daytime? Has anyone observed you stop No 05/29/24 13:27 breathing during sleep? STOP Results Negative 05/29/24 13:27 QUESTION #5 FULL TEXT : Do you snore loudly (louder than talking or can be heard through closed doors)? 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 Specify any problems Hx of Preganancy in last 3 No 05/29/24 13:27 Months Nurse Filling Out Transfusion [facility] 05/29/24 13:27 & Questions: Date: 05/29/24 05/29/24 13:27 Time: 13:35 05/29/24 13:27 Patient unable to answer at this time (ie. confused, unrespo /Reproduction History /Reproductive History - paying teller: /Reproductive Hx- paying teller Hx Now No 05/29/24 13:27 Gestational Age (in weeks): EDC: Hx Hx Para Hx Section SAB No 05/29/24 13:27 PFSH Medical History Cancer Migraine headache Restless legs Gastric reflux Former smoker Asthma Rib pain on left side Arthritis Hypertriglyceridemia Malabsorption Osteoporosis History of stress test Normal stress echocardiogram Wears glasses Back pain Gastric reflux Former smoker Shortness of breath on exertion COVID-19 BPD-DS Home Medications ?Medication ?Instructions ?Recorded ?Last Taken ?Type Calcium Citrate 800 mg PO .QID 10/04/23 05/26/24 History Catapleat B 3 tab PO BID 10/04/23 05/26/24 History Collagen 1 tab PO DAILY 10/04/23 05/26/24 History Fibra Syntropy 1 tab PO BID 10/04/23 05/26/24 History [place] Fortifier 1 tab PO BID 10/04/23 05/26/24 History Glutomine Complex 1 tab PO DAILY 10/04/23 Unknown History Hypo Zymase 2 tab PO TIDWMEAL 10/04/23 05/26/24 History Lactobacillus acidophilus 1,000 mmu cells PO DAILY 10/04/23 05/26/24 History (Acidophilus capsule) Methyl B12 8 spray intranasal DAILY 10/04/23 05/26/24 History Tuna [place] 1 tab PO DAILY 10/04/23 05/26/24 History Vitamin C +Iron 2 tab PO DAILY 10/04/23 05/26/24 History acetylcysteine 600 mg capsule (NAC) 600 mg PO DAILY 10/04/23 05/26/24 History boron 6 mg tablet 12 mg PO BID 10/04/23 05/26/24 History cholecalciferol (vitamin D3) 1,250 1,250 mcg PO 3XW 10/04/23 05/26/24 History mcg (50,000 unit) capsule magnesium citrate 100 mg capsule 100 mg PO BID 10/04/23 05/26/24 History vit D3 50 mcg-vitamin K1 500 1 cap PO DAILY 10/04/23 05/26/24 History mcg-MK4 1,500 mcg-MK7 180 mcg capsule vitamin A 2,400 mcg capsule 2,400 mcg PO DAILY 10/04/23 05/26/24 History vitamin E mixed 400 unit tablet 400 unit PO BID 10/04/23 05/26/24 History zinc gluconate 50 mg tablet 50 mg PO DAILY 10/04/23 05/26/24 History omeprazole 40 mg capsule,delayed 40 mg PO BID GERD 3 months #180 11/29/23 05/26/24 Rx release caps cyclobenzaprine 10 mg tablet 10 mg PO TID PRN muscle spasm #14 03/17/24 Unknown Rx tabs Allergy/AdvReac Type Severity Reaction Status Date / Time No Known Allergies Allergy Verified 05/30/24 05:43 Family History (Updated 12/26/23 @ 12:48 by Laurel Galan LPN) Father Kidney disease Hypertension Heart disease Diabetes Skin cancer Mother COPD (chronic obstructive pulmonary disease) Aunt Esophageal cancer Surgical History S/P endometrial ablation Hx of tubal ligation Status post biliopancreatic diversion with duodenal switch History of appendectomy History of Social History (Updated 12/17/23 @ 08:52 by Jolie Pablo) household members: spouse Smoking Status: Former smoker pack-years: 12 Tobacco: How many years used: 12 how long ago did patient quit smokin years ago alcohol intake: current alcohol intake frequency: holidays/special occasions only substance use type: does not use seatbelt use: always do you feel safe at home: Yes additional social history: -Miguel Sloan Prior Cardiac Testing/Procedures Prior Cardiac Testing/Procedures: Stress Test (Negative (adequate) stress echocardiogram in 2020) Review of Systems (Anesthesia) ROS Narrative System reviewed and no additional complaints, except as documented. Physical Exam Const alert, oriented x3 and average body habitus Resp normal respiratory effort, normal air movement and clear to auscultation bilaterally Cardio regular rate, regular rhythm, no murmurs and diaphoretic
--- NOTE | 2024-05-30 06:30 | EGD_PTH ---
PATIENT: JEREMIAH ANDERSON LOC: EN U#:[id number] AGE/SX: 53/F ROOM: RE05/30/[address]: Dr. Omar Vines DO : 1970 BED: DIS: 05/30/2024 SPEC #: [id number] RECD: 05/30/24 13:31 STATUS: CARLOS REBoris #: [id number] PILAR: 05/30/24 06:[address]: Omar Vines DEPT: SURGICAL PATHOLOGY RECD BY: Randall Mckeon ENTERED: 05/30/24 13:31 SP TYPE: EGD BIOPSY AMAN DR: Dr. Altaf Zuluaga MD Tissues: Esophagus, NOS Procedures: Surgery Specimen Level IV HEADER OPERATION: EGD with biopsies PRE-OP DIAGNOSIS: Cross's esophagus TISSUE SUBMITTED: A- Distal esophagus biopsy MICROSCOPIC DIAGNOSIS A. Distal esophagus, biopsy: * Columnar mucosa negative for goblet cell metaplasia. * Focal benign squamous mucosa. MICROSCOPIC DESCRIPTION Slides are reviewed. GROSS DESCRIPTION A. Received in fixative is one container labeled with the patient's name and designated Distal esophagus biopsy. The specimen consists of multiple irregular fragments of light lara soft tissue that in aggregate measure 1.4 x 0.3 x 0.2 cm. The specimen is totally submitted in one cassette. AARON/ 05/30/2024 CPT:54408
--- NOTE | 2024-05-30 06:52 | PCM.HP.STD ---
HPI - General General Date of Admission: 05/30/24 Date of Service: 05/30/24 Chief Complaint: Cross's esophagus HPI Narrative JEREMIAH ANDERSON, is a 53 F who presents today for upper endoscopy because of history of Cross's esophagus. Colonoscopy 10.17.22 Three 1 to 2 mm polyps in the sigmoid colon, at the splenic flexure and in the ascending colon, removed with a hot snare. Resected and retrieved. Diverticulosis in the sigmoid colon. One 4 mm polyp in the ascending colon, removed with a jumbo cold forceps. Resected and retrieved. *BGI established 10.31.23 pt reports a 25 year history of GERD. She currently has her symptoms managed through supplements and occasional omeprazole and TUMS. Pt reports HB if she eats right before bed and with tomato-based foods. Pt states her aunt of esophageal cancer and would like to get and EGD; pt states she has never had an upper scope. 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 Biopsied. Small hiatal hernia. Widely patent duodenal switch, characterized by healthy appearing mucosa was found. OV 9 pt reports that she is feeling well overall and only has occasional nausea that she is unable to identify a trigger or pattern for. Pt reports that she would like to discuss her EGD results. [facility] Medical History Cancer Migraine headache Restless legs Gastric reflux Former smoker Asthma Rib pain on left side Arthritis Hypertriglyceridemia Malabsorption Osteoporosis History of stress test Normal stress echocardiogram Wears glasses Back pain Gastric reflux Former smoker Shortness of breath on exertion COVID-19 BPD-DS Home Medications ?Medication ?Instructions ?Recorded ?Last Taken ?Type Calcium Citrate 800 mg PO .QID 10/04/23 05/26/24 History Catapleat B 3 tab PO BID 10/04/23 05/26/24 History Collagen 1 tab PO DAILY 10/04/23 05/26/24 History Fibra Syntropy 1 tab PO BID 10/04/23 05/26/24 History [place] Fortifier 1 tab PO BID 10/04/23 05/26/24 History Glutomine Complex 1 tab PO DAILY 10/04/23 Unknown History Hypo Zymase 2 tab PO TIDWMEAL 10/04/23 05/26/24 History Lactobacillus acidophilus 1,000 mmu cells PO DAILY 10/04/23 05/26/24 History (Acidophilus capsule) Methyl B12 8 spray intranasal DAILY 10/04/23 05/26/24 History Tuna [place] 1 tab PO DAILY 10/04/23 05/26/24 History Vitamin C +Iron 2 tab PO DAILY 10/04/23 05/26/24 History acetylcysteine 600 mg capsule (NAC) 600 mg PO DAILY 10/04/23 05/26/24 History boron 6 mg tablet 12 mg PO BID 10/04/23 05/26/24 History cholecalciferol (vitamin D3) 1,250 1,250 mcg PO 3XW 10/04/23 05/26/24 History mcg (50,000 unit) capsule magnesium citrate 100 mg capsule 100 mg PO BID 10/04/23 05/26/24 History vit D3 50 mcg-vitamin K1 500 1 cap PO DAILY 10/04/23 05/26/24 History mcg-MK4 1,500 mcg-MK7 180 mcg capsule vitamin A 2,400 mcg capsule 2,400 mcg PO DAILY 10/04/23 05/26/24 History vitamin E mixed 400 unit tablet 400 unit PO BID 10/04/23 05/26/24 History zinc gluconate 50 mg tablet 50 mg PO DAILY 10/04/23 05/26/24 History omeprazole 40 mg capsule,delayed 40 mg PO BID GERD 3 months #180 11/29/23 05/26/24 Rx release caps cyclobenzaprine 10 mg tablet 10 mg PO TID PRN muscle spasm #14 03/17/24 Unknown Rx tabs Allergy/AdvReac Type Severity Reaction Status Date / Time No Known Allergies Allergy Verified 05/30/24 05:43 Family History Father Kidney disease Hypertension Heart disease Diabetes Skin cancer Mother COPD (chronic obstructive pulmonary disease) Aunt Esophageal cancer Surgical History S/P endometrial ablation Hx of tubal ligation Status post biliopancreatic diversion with duodenal switch History of appendectomy History of Social History household members: spouse Smoking Status: Former smoker pack-years: 12 Tobacco: How many years used: 12 how long ago did patient quit smokin years ago alcohol intake: current alcohol intake frequency: holidays/special occasions only substance use type: does not use seatbelt use: always do you feel safe at home: Yes additional social history: -Miguel ROY Constitutional Constitutional: Denies fatigue, fever(s), poor appetite, weight gain or weight loss Gastrointestinal Gastrointestinal: Denies belching, bloating, change in bowel habits, change in stool character, chewing difficulty, coffee ground emesis, constipation, cramping, diarrhea, dyspepsia, dysphagia, early satiety, excessive flatus, fecal incontinence, heartburn, hematemesis, hematochezia, hemorrhoids, loose stools, melena, nausea, odynophagia, rectal bleeding, tenesmus, vomiting or weight changes Vital Signs Vital Signs Vital Signs: 05/30/24 05:45 05/30/24 05:46 05/30/24 06:23 Temperature 97.2 F L 97.2 F L Temperature Source Temporal Pulse Rate 62 62 Respiratory Rate 18 18 Respiratory Pattern Normal Blood Pressure 126/51 H 126/51 H Blood Pressure Mean 76 Blood Pressure Source Monitor Blood Pressure Position Semi-Fowlers Blood Pressure Location Left Arm Pulse Ox 97 97 Oxygen Delivery Method Room Air Room Air Weight Weight: 211 lb 3.2 oz Body Mass Index (BMI) 35.1 Physical Exam Const alert, oriented x3, no apparent distress and healthy appearing General Appearance: cooperative GI normal to inspection, nondistended, normoactive bowel sounds, soft to palpation, non-tender and non-distended Percussion: normal to percussion Rectal Exam: deferred Assessment & Plan Assessment/Plan (1) GERD (gastroesophageal reflux disease): (2) Barretts esophagus: PLAN: Assessment and Plan Assessment and Plan (1) GERD (gastroesophageal reflux disease): Status: Acute (2) Barretts esophagus: Status: Acute Plan: She underwent an upper endoscopy and was discovered to have severe erosive esophagitis LA grade C to D. Biopsies of the distal esophagus were as follows distal esophagus, biopsy: Fragments of gastroesophageal mucosa with focal intestinal metaplasia (goblet cell metaplasia) consistent with Cross?s esophagus. Moderate acute and chronic inflammation. Negative for dysplasia she agreed to be on PPIs twice a day for 3 months then we will repeat her upper endoscopy. (3) Gastroesophageal reflux disease: Plan: She has a history of gastroesophageal reflux disease. Unfortunately she has previous diagnosis of osteoporosis so she has been trying to avoid proton pump inhibitors. She also has a history of duodenal gastric reflux disease secondary to previous duodenal switch procedure for weight loss. She did previously lose 130 pounds. She has avoided diabetes with her previous surgery. She takes a lot of supplementations due to mild source of issues from her previous gastric bypass surgery. She has a family history of esophageal cancer so we will screen her for Cross's esophagus.
--- NOTE | 2024-05-30 07:15 | OP.CCLET_ITS ---
05/30/2024 Blake Zuluaga [address] [place] [address] Re : Upper GI endoscopy procedure for Rylie Latif Dear Dr. Zuluaga This procedure was performed on Thursday, May 30, 2024. My impressions and recommendations are as follows: Impressions : - Esophageal mucosal changes secondary to established short-segment Cross's disease. Biopsied. - Medium-sized hiatal hernia. - No gross lesions in the stomach. - No gross lesions in the first portion of the duodenum. Recommendations : - Discharge patient to home. - Resume previous diet. - Continue present medications. - Await pathology results. My findings are described in the full procedure note, which is enclosed. If I can be of further assistance, please feel free to contact me at . Sincerely, Omar Vines, 05/30/2024 7:13:59 AM This report has been signed electronically.
--- NOTE | 2024-05-30 07:15 | OP.EGD_ITS ---
Patient Name: Rylie Latif Procedure Date: 05/30/2024 6:35 AM Date of : 1970 Age: 53 Procedure: Upper GI endoscopy Indications: Follow-up of Cross's esophagus Providers: Omar Vines DO Referring MD: Blake Zuluaga Medicines: Monitored Anesthesia Care Patient Profile: This is a 53 year old female. Refer to note in patient chart for documentation of history and physical. Patient has symptoms of acute heartburn. Complications: No immediate complications. Procedure: Pre-Anesthesia Assessment: - Prior to the procedure, a History and Physical was performed, and patient medications and allergies were reviewed. The patient is competent. The risks and benefits of the procedure and the sedation options and risks were discussed with the patient. All questions were answered and informed consent was obtained. Patient identification and proposed procedure were verified by the physician in the pre-procedure area. Mental Status Examination: alert and oriented. Airway Examination: normal oropharyngeal airway and neck mobility. Respiratory Examination: clear to auscultation. CV Examination: normal. ASA Grade Assessment: II - A patient with mild systemic disease. After reviewing the risks and benefits, the patient was deemed in satisfactory condition to undergo the procedure. The anesthesia plan was to use monitored anesthesia care (MAC). Immediately prior to administration of medications, the patient was re-assessed for adequacy to receive sedatives. The heart rate, respiratory rate, oxygen saturations, blood pressure, adequacy of pulmonary ventilation, and response to care were monitored throughout the procedure. The physical status of the patient was re-assessed after the procedure. After obtaining informed consent, the endoscope was passed under direct vision. Throughout the procedure, the patient's blood pressure, pulse, and oxygen saturations were monitored continuously. The Endoscope was introduced through the mouth, and advanced to the second part of duodenum. The upper GI endoscopy was accomplished without difficulty. The patient tolerated the procedure well. 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 The maximum longitudinal extent of these mucosal changes was 2 cm in length. Mucosa was biopsied with a cold forceps for histology in a targeted manner at intervals of 1 cm in the lower third of the esophagus. One specimen bottle was sent to pathology. Verification of patient identification for the specimen was done. Estimated blood loss was minimal. A medium-sized hiatal hernia was present. No gross lesions were noted in the stomach. No gross lesions were noted in the first portion of the duodenum. Impression: - Esophageal mucosal changes secondary to established short-segment Cross's disease. Biopsied. - Medium-sized hiatal hernia. - No gross lesions in the stomach. - No gross lesions in the first portion of the duodenum. Recommendation: - Discharge patient to home. - Resume previous diet. - Continue present medications. - Await pathology results. Procedure Code(s): --- Professional --- 82620, Esophagogastroduodenoscopy, flexible, transoral; with biopsy, single or multiple CPT copyright 2021 [employer]. All rights reserved. The codes documented in this report are preliminary and upon practical nursing instructor review may be revised to meet current compliance requirements. Omar Vines DO 05/30/2024 7:13:59 AM This report has been signed electronically. Number of Addenda: 0 Note Initiated On: 05/30/2024 6:35 AM
--- NOTE | 2024-05-30 07:15 | PCM.POST.ANE ---
Anesthesia: Postop Eval I Current Vital Signs Temperature: 97.2 F Pulse Rate: 67 Blood Pressure: 121/69 Respiratory Rate: 16 Pulse Ox: 96 Oxygen Delivery Method: Room Air Assessment Airway patent: Yes Spontaneous unlabored respirations: Yes Mental status: Awake and Calm nausea: No Vomiting: No Anesthesia Complication: No Fluid Hydration Crystalloid volume administer (ml): 30 Total IV fluid infused: 30 Progress Note Anesthesia document: Postop Eval 1 completed: Yes
--- NOTE | 2024-05-30 09:28 | PCM.POSTANE2 ---
Anesthesia Postop Eval I Sum Postop Eval Completion status Anesthesia document: Postop Eval 1 completed: Yes Anesthesia Postop Eval I Summary Anesthesia Postop Eval I Summary: Anesthesia Postop Eval I: Assessment Summary Airway patent Yes 05/30/24 07:16 [email or web address] Spontaneous unlabored Yes 05/30/24 07:16 [email or web address] respirations Mental status Awake,Calm 05/30/24 07:16 [email or web address] nausea No 05/30/24 07:16 [email or web address] Vomiting No 05/30/24 07:16 [email or web address] Anesthesia Postop Eval I: Fluid Summary Crystalloid volume administer 30 05/30/24 07:16 [email or web address] (ml) Colloids volume administered ( ml) Blood Product volume administered (ml) Total IV fluid infused 30 05/30/24 07:16 [email or web address] Anesthesia Postop Eval I: Summary Notes Anesthesia Complication No 05/30/24 07:16 [email or web address] Anesthesia Complication Comment: Post-operative progress note Anesthesia: Postop Eval II Evaluation Mental status: Awake Pain Level: 0 nausea: No Vomiting: No
== END 2024-05-30 07:45 | disposition home or self-care (01) ==
LOC: EN 05:23 → AC 05:24
PROVIDERS: PCP Family Medicine; Referring Provider Family Medicine; Visit Provider Internal Medicine Gastroenterology
PROC: 0DJ08ZZ Inspection of Upper Intestinal Tract, Via Natural or Artificial Opening Endoscopic (ICD-10-PCS; CPT 43235; principal; 2024-05-30 06:25)
DX: K22.70 Barrett's esophagus without dysplasia (principal); K44.9 Diaphragmatic hernia without obstruction or gangrene; Z80.0 Family history of malignant neoplasm of digestive organs; Z87.891 Personal history of nicotine dependence; K21.9 Gastro-esophageal reflux disease without esophagitis; Z79.899 Other long term (current) drug therapy; Z98.51 Tubal ligation status; Z90.49 Acquired absence of other specified parts of digestive tract
CPT/HCPCS: 43239; 88305; A4216; J2405

== ENCOUNTER 2024-06-30 17:00 | Outpatient (RCR) | payer OTHER, SELFPAY ==
--- NOTE | 2024-05-28 14:44 | HP.PTEVAL_ITS ---
Patient's Visit Information Visit Information Visit Information: JEREMIAH ANDERSON is a 53 year old F referred to Physical Therapy by Dr. Luther Pinto DPM with a diagnosis of R PERONEAL TENDONITIS. Date of Evaluation: 05/26/24 Physical Therapist: Alfreda Nagel PT, Cert MDT Visit Plan Frequency: 2x /Week Duration: 4-6 Weeks Plan: R FOOT MODALITIES NEEDED. WILL START WITH ULTRASOUND X 5-6 TREATMENTS AND DEEP TISSUE STM ALONG WITH R LE HEP STARTING WITH ANKLE CALF AND HS STRETCHING AND PROGRESSING TO ROM AND STRENGTHENING OPEN AND CLOSED CHAIN ALL PLANES TOLERATED. TODAY: GENTLE R LE WALL LEAN CALF STRETCHING X 3-5 REPS X 10 TO 15 SEC EA, 3 TIMES A DAY TOLERATED. EMPHASIZED NO AVOID PAIN WITH STRETCHING. PATIENT RETURN DEMO'D GOOD TECHNIQUE AND VERBALIZED UNDERSTANDING AFTER INSTRUCTION GIVEN. 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 SITTING X ~24 MIN AT A TIME. UP AND DOWN STEPS ABOUT 7 TIMES A DAY. RECESS DUTY 30 MIN A DAY. STANDING X 15 MIN TO GREET MORNING AND 15 MIN AFTERNOON. Disability: NO Present symptoms: R FOOT PAIN ON OUTSIDE AND TOP OF FOOT LATERALLY. PATIENT REPORTS SHE HAS OTHER THINGS GOING ON WITH BOTH OF HER FEET UNRELATED TO THIS AND SHE IS HAVING NEW ORTHOTICS MADE CURRENTLY. Present since: AUGUST OF 2023 Pain Scale: WORST 5/10, LEAST 3/10 Currently: 3/10 Is it getting better, worse or staying the same: STAYING THE SAME Commenced as a result of: NO APPARENT REASON. Symptoms at onset: STATES SHE WAS IN [place] ON VACATION AND THIS AREA OF HER FOOT STARTED BURNING AND STINGING. SHE STATES SHE THOUGHT IT WAS SUN BURNED BUT IT DIDN'T GO AWAY. WHEN SHE CAME HOME THE BONE ON THE OUTSIDE OF HER FOOT FELT BIG AND HARD SO SHE WENT TO [facility] AND HAD X-RAYS AND THEN WENT TO DR. PINTO. Worse: END OF THE DAY, IN BED AT NIGHT, WALKING FOR EX USE TO BUT HASN'T TRIED LATELY Better: RUBBING THAT SPOT REALLY HARD Disturbed sleep: YES - FALLING ASLEEP OR TRYING TO GET BACK TO SLEEP Previous history/Previous treatment: NEUROPATHY, PLANTAR FASCITIS, H/O HEEL SPURS, ZURI FOOT ARTHRITIS, LONG H/O ORTHOTIC USE Treatment this episode: REFUSED STEROID SHOT AND OPTED FOR PHYSICAL THERAPY INSTEAD. REPORTS SHE DOES NOT RECALL BEING GIVEN ANY EXERCISES OR STRETCHES TO DO BY THE DOCTOR SO HAS NOT BEEN DOING ANY. Imaging: ZURI FOOT X-RAYS - APPROX OCT 2023 PMH/Recent major surgery: OSTEOPOROSIS, Cross's esophagus. Objective Objective: THIS PATIENT AMBULATES INDEP'LY INTO PT WITHOUT ANY AD'S OR GROSS DEVIATIONS NOTED. NO ACUTE TENDERNESS WITH PALPATION TODAY IN AREA PAIN PATIENT POINTS TO. PATIENT IS POINTING TO BASE OF R 5TH METATARSAL REGION AND IN THE REGION OF THE INSERTION OF PERONEUS BREVIS TENDON. R ANKLE STRENGTH IS 5/5 WITH MMT'ING ALL PLANES AND PATIENT DENIES PAIN WITH TESTING. SHE REPORTS THE PAIN EXTENDS ONTO THE TOP OF HER FOOT LATERALLY AND SHE IS NOT TENDER IN THIS AREA EITHER BUT SHE REPORTS PAIN RELIEF WITH DEEP MASSAGE. SHE HAS MILD R ANKLE STIFFNESS ALL PLANES. Balance/Special Test Scores Lower Extremity Functional Score: 57 Goals Goal 1:: DECREASE C/O R FOOT PAIN BY AT LEAST 50% TO EASE ADL'S Goal Time Frame: 4-6 Weeks Goal 2:: INDEP HEP Goal Time Frame: 4-6 Weeks Rehabilitation Potential Physical Therapy Diagnosis: MILD R ANKLE STIFFNESS WITH C/O R LATERAL FOOT PAIN Rehabilitation Potential: Good Anticipated Interventions Patient/Client Instruction: Educate patient on: Condition, Plan of Care and Risk Factors For the Purpose of:: To improve self management Therapeutic Exercise to Include: Strength training, Flexibilty training, Gait and locomotor training and Neuromotor development For the Purpose of:: To decrease pain, To increase ROM, To improve muscle performance and motor function, To increase tolerance to activity/condition/position, To improve ability of physical actions for home/community/work/leisure, To improve gait and locomotor functions and To improve self management Manual Therapy Techniques to Include: Mobilization and Soft tissue mobilization For the Purpose of:: To decrease pain, To increase ROM and To improve nutrient delivery to tissue Iontophoresis (with Dexamethozone, with Acetic acid): Yes Cryotherapy (ice pack, ice massage): Yes Thermo therapy (hot pack): Yes Ultrasound (thermal/non thermal): Yes (50% 1.2 W/CM2 X 8 MIN) Fluidotherapy: Yes For the Purpose of:: To decrease pain, To decrease swelling/inflammation and To improve nutrient delivery to tissue Text: Thank you for the opportunity to evaluate your patient. For Medicare and Medicare HMO plans, please review the plan of care and approve it. It will need to be FAXED BACK to us at [phone] for Medicare purposes. For Medicare only, by signing this I certify the plan of care. Please let me know if there are questions or concerns regarding this plan of care. Physician Signature: Date:
--- NOTE | 2024-06-30 18:46 | HP.PTREVAL_ITS ---
Re-Evaluation Intro: Dr. Luther Pinto, DPM, It has been my pleasure to treat JEREMIAH ANDERSON over the last 7 visits for R PERONEAL TENDONITIS. Please see the progress note below for an update on the physical therapy plan of care! Subjective Subjective: PATIENT REPORTS HER FOOT IS NOTICEABLY NOT BURNING MUCH IT WAS BEFORE STARTING PT. STATES SHE WAS ON PREDNISONE FOR HER LUNGS FOR 5 DAYS AND SHE DIDN'T FEEL LIKE HER FEET WERE SWOLLEN DURING THAT TIME BUT DOESN'T THINK IT HELPED HER R FOOT PAIN MUCH. STATES HER NEW ORTHOTICS ARE IN BUT SHE HAS NOT PICKED THEM UP YET. PATIENT REPORTS SHE HAS A LOT GOING ON WITH HRE FEET SO IT IS STILL DIFFICULT F OR HER TO WALK FOR A FEW STEPS WHEN SHE FIRST GETS UP AFTER SITTING ESPECIALLY AT THE END OF THE DAY BUT THEN IT GETS BETTER SHE KEEPS GOING. SHE REPORTS SHE COULD STILL GET OUT AND WALK AND HOUR RIGHT NOW IF SHE WANTED TO EVEN THOUGH IT IS THE END OF THE DAY. STATES ONLY DOING HOME STRETCHES ABOUT 3 TIMES A WEEK BECAUSE SHE GETS BUSY AND TENDS TO FORGET OR IS TOO TIRED SO DOES THEM WHEN SHE CAN. Objective Objective/Function: PATIENT WAS SEEN TODAY FOR RE-ASSESSMENT OF PROGRESS TOWARD THE SET PT GOALS AND THE NEED FOR FURTHER PHYSICAL THERAPY VS READINESS FOR DISCHARGE. PATIENTS C/O PAIN REMAINS IN THE REGION OF THE PERONEAL TENDONS. RECOMMENDED PHYSICIAN RE-CHECK DUE TO PATIENT TRYING DEEP TISSUE MASSAGE WITH MASSAGE THERAPISTS (FOOT MASSAGE), , AND PT IN ADDITION TO ULTRASOUND TREATMENTS, THER EX WITH PT, PRESCRIPTION CREAM AND RECENT PREDNISONE OVER PAST YEAR WITH MINIMAL BENEFIT PRIOR TO TRIAL OF DRY NEEDLING AND/OR SHOCKWAVE THERAPY WITH OUT OF POCKET EXPENSE. PATIENT AGREEABLE. RECOMMENDED PATIENT BE DELIGENT WITH HEP BETWEEN NOW AND RE-CHECK. FURTHER EDUCATION GIVEN TO PATIENT ON DIAGNOSIS, SHOCKWAVE TREATMENT AND DRY NEEDLING IN ADDITION TO IONTOPHORESIS AND INSURANCE COVERAGE. UPON EXAM TODAY: LEFS QUESTIONNAIRE SCORE HAS IMPROVED BY 5 POINTS. SHE HAS NO ACUTE TENDERNESS WITH PALPATION ALONG THE PERONEAL TENDONS TODAY AND R ANKLE STRENGTH IS 5/5 WITH MMT'ING. SHE IS ABLE TO HEEL RAISE WITHOUT C/O INCREASED SX'S, TOE RAISE WITH C/O MILD INCREASE SX'S AND SLS WITHOUT UE ASSIST X > 20 SEC BUT SX'S ARE EASILY PROVOKED WITH THIS ACTIVITY ANKLE MUSCLES WORK TO STABILIZE HER JOINT. CURRENT EX SESSIONS INCLUDE: Incline stretch 3x30 each Gastrocnemius and Soleus. Long sitting calf stretch /w strap 30 x3 Supine HS stretch with strap 3x30 [address] ankle HEP for RIGHT ANKLE Blue band -EV 2x15 -IV 2x15 -DF 2x15 PF 2x10 standing heel raise 2x10 heel raise on 1/2 block 1x10 lateral step down tap L heel to floor 4 step 2x10 step calf stretch w/ heel drop down, 30 x3. Step up to balance 6 box 2x10 B Plan Plan Plan: PHYSICIAN RE-ASSESSMENT WHEN SHE GOES TO GET HER NEW ORTHOTICS FITTED - PATIENT AGREEABLE. PATIENT MAY BENEFIT FROM FURTHER IMAGING. CONSIDER SHOCKWAVE THERAPY AND DRY NEEDLING IF FURTHER THERAPY INDICATED. PATIENT TO CALL TO SCHEDULE FOLLOW UP IF NEEDED AFTER PHYSICIAN ASSESSMENT. Balance/Gait/Functional tests Balance/Special Test Scores Lower Extremity Functional Score: 62 Goals Goals Goal 1:: DECREASE C/O R FOOT PAIN BY AT LEAST 50% TO EASE ADL'S Goal Time Frame: 4-6 Weeks Goal Progress: Progressing Goal 2:: INDEP HEP Goal Time Frame: 4-6 Weeks Goal Progress: Progressing Anticipated Interventions Anticipated Interventions Patient/Client Instruction: Educate patient on: Condition, Plan of Care and Risk Factors For the Purpose of:: To improve self management Therapeutic Exercise to Include: Strength training, Flexibilty training, Gait and locomotor training and Neuromotor development For the Purpose of:: To decrease pain, To increase ROM, To improve muscle performance and motor function, To increase tolerance to activity/condition/position, To improve ability of physical actions for home/community/work/leisure, To improve gait and locomotor functions and To improve self management Manual Therapy Techniques to Include: Mobilization and Soft tissue mobilization For the Purpose of:: To decrease pain, To increase ROM and To improve nutrient delivery to tissue Iontophoresis (with Dexamethozone, with Acetic acid): Yes Cryotherapy (ice pack, ice massage): Yes Thermo therapy (hot pack): Yes Ultrasound (thermal/non thermal): Yes (50% 1.2 W/CM2 X 8 MIN) Fluidotherapy: Yes For the Purpose of:: To decrease pain, To decrease swelling/inflammation and To improve nutrient delivery to tissue Re-Evaluation Ending Re-evaluation ending: Please do not hesitate to contact me at [phone] by phone or if you have questions or concerns regarding this new plan of care! Sincerely, Alfreda Nagel, PT, Cert MDT
== END 2024-06-30 19:00 | disposition home or self-care (01) ==
LOC: PT 17:00
PROVIDERS: PCP Family Medicine; Referring Provider Student in an Organized Health Care Education/Training Program; Visit Provider Student in an Organized Health Care Education/Training Program
DX: M76.71 Peroneal tendinitis, right leg (principal)
CPT/HCPCS: 97035; 97110; 97140; 97162; 97530

== ENCOUNTER → 2024-08-18 | Outpatient (CLI) | payer OTHER, SELFPAY ==
--- NOTE | 2024-08-18 16:50 | RAD_ITS ---
PROCEDURE: L/S SPINE MIN 4 VIEWS 08/18/2024 REASON FOR EXAM: PAIN TECHNIQUE: Standing AP view(s) of the thoracic and lumbar spine. COMPARISON: None. FINDINGS: Mild degenerative levoscoliosis apex at L3. Grade 1 anterolisthesis of L4 on L5. There are diffuse spondylotic changes. Findings are demonstrated to by diffuse disc space narrowing, osteophyte formation and degenerative endplate sclerosis. There is diffuse facet joint arthropathy with secondary bilateral neural foramina narrowing. No fracture or dislocation is seen. No aggressive lytic or blastic bony lesion is noted. RAD/L/S Spine Min 4 Views IMPRESSION: Spondylosis. Findings are more prominent at L4-L5 and L5-S1 levels. Grade 1 retrolisthesis of L4 on L5. Mildly exaggerated lumbar lordosis. Reading [facility] [id number]
== END | disposition home or self-care (01) ==
LOC: MTRAD 16:48
PROVIDERS: PCP Family Medicine; Referring Provider Student in an Organized Health Care Education/Training Program; Visit Provider Student in an Organized Health Care Education/Training Program
DX: M54.16 Radiculopathy, lumbar region (principal); G60.8 Other hereditary and idiopathic neuropathies
CPT/HCPCS: 72110

== ENCOUNTER → 2024-09-17 | Outpatient (CLI) | payer OTHER, SELFPAY ==
--- NOTE | 2024-09-17 10:36 | BI_ITS ---
EXAM: SCRN MAMM (CAD)W/CHARISSE BILAT DATE: 09/17/2024 CLINICAL HISTORY: F, Age 54 y/o , SCREENING TECHNIQUE: SCRN MAMM (CAD)W/CHARISSE BILAT COMPARISON: Prior exam(s) dated 07/18/2022, 09/11/2023. FINDINGS: TISSUE DENSITY: The breasts are almost entirely fatty. Bilateral Breast Mammographic Findings: No significant masses, calcifications or other abnormalities are identified. BI/SCRN MAMM (CAD)W/CHARISSE BILAT IMPRESSION: There is no mammographic evidence of malignancy. OVERALL FINAL ASSESSMENT BI-RADS 1: NEGATIVE. RECOMMEND ANNUAL MAMMOGRAPHIC SCREENING. RECOMMENDATION: Routine annual follow-up in 1 Year A letter with findings and recommendations will be mailed to the patient. Reading Location: [id number]
== END | disposition home or self-care (01) ==
LOC: OPBI 10:35
PROVIDERS: PCP Family Medicine; Referring Provider Family Medicine; Visit Provider Family Medicine
DX: Z12.31 Encounter for screening mammogram for malignant neoplasm of breast (principal)
CPT/HCPCS: 77063; 77067

== ENCOUNTER 2024-11-10 21:17 | Emergency (ER) | payer OTHER, SELFPAY ==
[2024-11-10 21:18] VITALS: BP 97/73; PULSE 61; RESP 18; TEMP 36.9; O2SAT 98; BMI 36.2
--- NOTE | 2024-11-10 22:06 | EX.ED.VIS.EY ---
HPI History of Present Illness Chief Complaint: Eye Problem Informant: patient Narrative Narrative: 54-year-old female states she has been trying to get her right contact after last couple hours and is unable. She has pain, foreign body sensation for likely contact is there. She is not able to get it out, she had a friend try to get it out and was unable as well. She think she can feel it moving when she uses her fingers. Her left eye contact is out. They are monthly's. She states she is prescribed monovision, so one of her contacts is for same distance of 1 for same close self and so she cannot really tell since the left one is out if her vision is normal or not in the right eye because she is used to seeing them together. [facility] Medical History Cancer Migraine headache Restless legs Gastric reflux Former smoker Asthma Rib pain on left side Arthritis Hypertriglyceridemia Malabsorption Osteoporosis History of stress test Normal stress echocardiogram Wears glasses Back pain Gastric reflux Former smoker Shortness of breath on exertion COVID-19 BPD-DS Home Medications ?Medication ?Instructions ?Recorded ?Last Taken ?Type Calcium Citrate 800 mg PO .QID 10/04/23 05/26/24 History Catapleat B 3 tab PO BID 10/04/23 05/26/24 History Collagen 1 tab PO DAILY 10/04/23 05/26/24 History Fibra Syntropy 1 tab PO BID 10/04/23 05/26/24 History [place] Fortifier 1 tab PO BID 10/04/23 05/26/24 History Glutomine Complex 1 tab PO DAILY 10/04/23 Unknown History Hypo Zymase 2 tab PO TIDWMEAL 10/04/23 05/26/24 History Lactobacillus acidophilus 1,000 mmu cells PO DAILY 10/04/23 05/26/24 History (Acidophilus capsule) Methyl B12 8 spray intranasal DAILY 10/04/23 05/26/24 History Tuna [place] 1 tab PO DAILY 10/04/23 05/26/24 History Vitamin C +Iron 2 tab PO DAILY 10/04/23 05/26/24 History acetylcysteine 600 mg capsule (NAC) 600 mg PO DAILY 10/04/23 05/26/24 History boron 6 mg tablet 12 mg PO BID 10/04/23 05/26/24 History cholecalciferol (vitamin D3) 1,250 1,250 mcg PO 3XW 10/04/23 05/26/24 History mcg (50,000 unit) capsule magnesium citrate 100 mg capsule 100 mg PO BID 10/04/23 05/26/24 History vit D3 50 mcg-vitamin K1 500 1 cap PO DAILY 10/04/23 05/26/24 History mcg-MK4 1,500 mcg-MK7 180 mcg capsule vitamin A 2,400 mcg capsule 2,400 mcg PO DAILY 10/04/23 05/26/24 History vitamin E mixed 400 unit tablet 400 unit PO BID 10/04/23 05/26/24 History zinc gluconate 50 mg tablet 50 mg PO DAILY 10/04/23 05/26/24 History omeprazole 40 mg capsule,delayed 40 mg PO BID GERD 3 months #180 11/29/23 05/26/24 Rx release caps cyclobenzaprine 10 mg tablet 10 mg PO TID PRN muscle spasm #14 03/17/24 Unknown Rx tabs albuterol sulfate 90 mcg/actuation 2 puff inhalation Q4-6H PRN 06/22/24 Unknown Rx aerosol inhaler shortness of breath or wheezing #6.7 grams Allergy/AdvReac Type Severity Reaction Status Date / Time No Known Allergies Allergy Verified 11/10/24 21:19 Family History Father Kidney disease Hypertension Heart disease Diabetes Skin cancer Mother COPD (chronic obstructive pulmonary disease) Aunt Esophageal cancer Surgical History S/P endometrial ablation Hx of tubal ligation Status post biliopancreatic diversion with duodenal switch History of appendectomy History of Social History household members: spouse Smoking Status: Former smoker pack-years: 12 Tobacco: How many years used: 12 how long ago did patient quit smokin years ago alcohol intake: current alcohol intake frequency: holidays/special occasions only substance use type: does not use seatbelt use: always do you feel safe at home: Yes additional social history: -Miguel Sloan ROS ROS ED Constitutional Constitutional ED: Denies chills or fever(s) Eyes Eyes: Reports as per HPI and eye pain ENT ENT ED: Denies ear pain, rhinorrhea or sore throat Neurologic Neurologic: Denies headache(s), paresthesias or weakness EXAM Physical Exam Const Vital Signs: 11/10/24 21:18 Temperature 98.4 F Temperature Source Oral Pulse Rate 61 Respiratory Rate 18 Blood Pressure 97/73 Blood Pressure Mean 81 Pulse Ox 98 Oxygen Delivery Method Room Air Positive well nourished and well developed General Appearance ED: well developed and NAD HEENT atraumatic; Negative for tenderness Mouth ED: Yes oral and palatal mucosa normal and Yes lips normal Mouth: oral and palatal mucosa normal and lips normal Eyes PERRL and EOMs intact bilaterally Eyes Narrative: Right eye conjunctival injection without chemosis. On gross inspection with moving the eye all around there is no foreign body seen. I used a wet cotton swab to gently dab the inferior aspect of the cornea, and I am not seeing a contact move. Neck supple Neuro oriented x3, CN's II-XII intact bilaterally and gait normal Sensorium / Orientation: alert Skin Lesions: no lesions Rashes: no rashes MDM MDM MDM Narrative Medical decision making narrative: We usually have a slit-lamp but it is broken, nonfunctioning, and has already been removed from the department. We do not have a Trevino lamp but we have a cobalt blue filter for using fluorescein dye. I used tetracaine, to anesthetize her eye followed by fluorescein staining. I do not see any dye uptake on the cornea, nor do I see a contact lens. I everted her upper lid to confirm that there is no foreign body. The only thing that is taking up some stain is the conjunctive and not focally. Very irritated at the nasal aspect. I used a damp sterile cotton swab to gently probe the edge of the cornea for contact lens, there is none. The conjunctiva is slightly mobile on the surface of the sclera most likely due to being inflamed and a braised. The patient stated multiple times that she went to the bathroom and is feeling the contact pull off of her eye partially but she cannot get it off, I advised her that she is pulling on the conjunctiva and to stop doing that the contact is not in her eye. I gave her some erythromycin ointment with instructions for use for the next few days and follow-up with ophthalmology as needed, but the lever contact to her eye is better. Discharge Plan Triage Chief Complaint: Eye Problem ED Provider: Kin Le Dx/Rx/DC Orders Clinical Impression: Abrasion of conjunctiva, right Instructions: ED Corneal Abrasion Prescriptions: No Action vitamin A 2,400 mcg capsule 2,400 mcg PO DAILY boron 6 mg tablet 12 mg PO BID zinc gluconate 50 mg tablet 50 mg PO DAILY Acidophilus Capsule 1,000 mmu cells PO DAILY acetylcysteine [NAC] 600 mg capsule 600 mg PO DAILY cholecalciferol (vitamin D3) 1,250 mcg (50,000 unit) capsule 1,250 mcg PO 3XW vitamin E mixed 400 unit tablet 400 unit PO BID magnesium citrate 100 mg capsule 100 mg PO BID vitamin D3-vit K1-vit MK4-MK7 50-500-1,500 mcg capsule 1 cap PO DAILY Calcium Citrate 400 mg 800 mg PO .QID Catapleat B 3 tab PO BID Collagen 1 tab PO DAILY Fibra Syntropy 1 tab PO BID [place] Fortifier 1 tab PO BID Glutomine Complex 1 tab PO DAILY Rx Instructions: 1 Scoop orally twice a day; Hypo Zymase 2 tab PO TIDWMEAL Methyl B12 liquid 8 spray intranasal DAILY Tuna [place] 1 tab PO DAILY Vitamin C +Iron 2 tab PO DAILY omeprazole 40 mg capsule,delayed release(DR/EC) 40 mg PO BID 90 Days Qty: 180 1RF cyclobenzaprine 10 mg tablet 10 mg PO TID PRN (Reason: muscle spasm) Qty: 14 0RF albuterol sulfate 90 mcg/actuation HFA aerosol inhaler 2 puff inhalation Q4-6H PRN (Reason: shortness of breath or wheezing) Qty: 6.7 0RF Primary Care Provider: Altaf Zuluaga Referrals: Altaf Zuluaga MD [Primary Care Provider] - Edmond Esparza MD [Med Staff - Active Staff] - 3-5 Days if not improving (or your bottom presser, if you want to see them first) Activity Restrictions/Additional Instructions: Using antibiotic ointment 3 times daily, thin ribbon onto the lower eyelid and blink it in for the next 3 or 4 days. If your eye is better, you may resume contact lens wear at that time, wait until all the discomfort and redness is gone preferably. Print Language: Uzbek Disposition Disposition: Home, Self Care
[2024-11-10] MEDS: Tetracaine 0.5% Ophthalmic Bottle 2 DRP RIGHT EYE (22:12)
--- OUTSIDE RECORDS SUMMARY | 2024-11-10 22:45 | XMS RPT_ITS | CCD ---
Author Organization [facility] CliniSyal Care Team Providers Care Learning Administrator Name Role Phone CHRIS WEBSTER Unavailable Unavailable ANDREEA ZULUAGA Unavailable Unavailable Dr. Blake Zuluaga Primary Care Provider Dr. Blake Zuluaga Referring Provider Ashok PENG, DANISH Currie Attending Provider Dr. Blake Zuluaga Primary Care Provider [phone] Dr. Blake Zuluaga Referring Provider RAMYA Monk Attending Provider DANISH Pacheco Attending Provider Dr. Blake Zuluaga Primary Care Provider Mariann Gan Attending Provider Unavailable Dr. Blake Zuluaga Referring Provider FriendDr. Nelson Attending Provider Friend, Dr. Nelson Other Provider Dr. Blake Zuluaga Primary Care Provider Dr. Blake Zuluaga Primary Care Provider Dr. Blake Zuluaga Referring Provider FriendDr. Nelson Attending Provider FriendDr. Nelson Other Provider Dr. Andreea Zuluaga MD Primary Care Provider Dr. Andreea Zuluaga MD Referring Provider [phone] Manisha ROTARY R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Arnaud Attending Provider Manisha ROTARY R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, Arnaud Referring Provider Blair DPM, Dr. Sloan Attending Provider Blair NAZARIO, Dr. Sloan Referring Provider [phone] Friend DO, Dr. Nelson Attending Provider Friend DO, Dr. Nelson Other Provider Margareth INFANTE, Dr. Solitario Primary Care Provider Margareth INFANTE, Dr. Solitario Referring Provider Ancelmo ROTARY R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, Real Knight Attending Provider Blair SINGHM, Dr. Sloan Attending Provider [phone] Blair NAZARIO, Dr. Sloan Referring Provider [phone] Margareth INFANTE, Dr. Solitario Attending Provider Ranney, Christopher Primary Care Unavailable Thi ROTARY ROCK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Pamela Referring Unavailable Thi ROTARY ROCK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, Pamela Attending Unavailable Ranney, Christopher Primary Care Unavailable Maritza Noemí Referring Unavailable WindfallNoemí slaughter Attending Unavailable Luther Love Referring Unavailable Luther Love Attending Unavailable Ranney, Christopher Primary Care Unavailable Ranney, Christopher Referring Unavailable Ranney, Christopher Primary Care Unavailable Moomaw, Arnaud Attending Unavailable Friend, Omar Attending Unavailable Ranney, Christopher Primary Care Unavailable Friend, Omar Referring Unavailable Ranney, Christopher Primary Care Unavailable Ungkanwal, Tessa Attending Unavailable Ranney, Christopher Referring Unavailable Friend, Omar Attending Unavailable Ranney, Christopher Primary Care Unavailable Ranney, Christopher Referring Unavailable Friend, Omar Attending Unavailable Ranney, Christopher Primary Care Unavailable Luther Love Attending Unavailable Ranney, Christopher Primary Care Unavailable Ranney, Christopher Primary Care Unavailable Ranney, Christopher Attending Unavailable Ranney, Christopher Referring Unavailable Moomaw, Arnaud Attending Unavailable Moomaw, Arnaud Referring Unavailable Ranney, Christopher Primary Care Unavailable Ranney, Christopher Primary Care Unavailable Malik, Rodolfo Referring Unavailable Rodolfo Gan Attending Unavailable Luther Love Referring Unavailable Luther Love Attending Unavailable Ranney, Christopher Primary Care Unavailable Ancelmo SIMMS, Real Knight Attending Unavailable Ranney, Christopher Primary Care Unavailable Ranbuffalo, Christopher Referring Unavailable Ranney, Christopher Referring Unavailable Ran[facility], [facility] Unavailable Sumit Pool Attending Unavailable Ranmarek, Christopher Referring Unavailable Friend, Omar Attending Unavailable Ranney, Christopher Referring Unavailable Ranney, Christopher Primary Care Unavailable Rodolfo Gan Attending Unavailable Ranney, Christopher Referring Unavailable Friend, Omar Attending Unavailable Ranmarek, Christopher Referring Unavailable Noemí Salas Attending Unavailable Ranmarek, Christopher Referring Unavailable Friend, Omar Attending Unavailable Faustobuffalo, Christopher Primary Care Unavailable Friend, Omar Consulting Unavailable Ranmarek, [facility] Primary Care Unavailable Margareth, Christsteveer Referring Unavailable Friend, Omar Consulting Unavailable FriendOmar Attending Unavailable Medications Current Medications Medication Drug Class(es) Dates Sig (Normalized) Sig (Original) acetylcysteine 600 mg oral capsule (3 sources) Antidote, Mucolytic, Antidote for Acetaminophen Overdose Start: 10-04-2023 take 1 capsule by mouth once daily Acetylcysteine (Nac) 600 mg capsule Active 600 mg PO DAILY October 04, 2023 12:00am [id number] 200 actuat albuterol 0.09 mg/actuat metered dose inhaler (20 sources) beta2-Adrenergic Agonist Start: 06-22-2024 Albuterol Sulfate 90 mcg/actuation HFA aerosol inhaler Active 2 NMA INHALATION EVERY 4-6 HOURS as needed for shortness of breath or wheezing 6.7 0 June 22, 2024 12:00am Start: 01-21-2022 take 1 puff(s) by in halation every four hours Albuterol Sulfate Active 2 PUFF INHALATION Q4H 8.5 January 21, 2022 12:00am Start: 06-07-2019 End: 10-04-2023 Albuterol Sulfate 90 mcg/act uation HFA aerosol inhaler Discontinued 2 NMA INHALATION .Q4-6H as needed for shortness of breath or wheezing 6.7 0 February 01, 2023 5:25pm October 04, 2023 8:25am Start: 06-07-2019 take 1 puff(s) by in halation every four to six hours Albuterol Sulfate Active 2 PUFF INHALATION .Q4-6H 6.7 June 06, 2019 11:00pm amoxicillin 875 mg / clavulanate 125 mg oral tablet (4 sources) Penicillin-class Antibacterial Start: 02-05-2022 take 1 tablet by mouth every twelve hours Amoxicillin-Pot Clavulanate Active 1 TABLET PO Q12H 14 February 05, 2022 1:00am boron 6 mg oral tablet (3 sources) Start: 10-04-2023 take 1 tablet by mouth twice daily [place] 6 mg tablet Active 12 mg PO TWICE A DAY October 04, 2023 12:00am calcium citrate 400 mg oral tablet (3 sources) Start: 10-04-2023 take 800 mg by mouth four times daily Calcium Citrate 400 mg Active 800 mg PO .QID October 04, 2023 12:00am Catapleat B (3 sources) Start: 10-04-2023 Catapleat B Active 3 {tbl} PO TWICE A DAY October 04, 2023 12:00am cholecalciferol 1.25 mg oral capsule (10 sources) Vitamin D Start: 10-04-2023 take 1 capsule by mouth three times weekly Cholecalciferol (Vitamin D3) 1,250 mcg (50,000 unit) capsule Active 1250 ug PO 3 TIMES A WEEK October 04, 2023 12:00am Start: 07-07-2022 End: 10-04-2023 take 1 capsule by mouth once daily Cholecalciferol (Vitamin D3) 50 mcg (2,000 unit) capsule Discontinued 50 ug PO DAILY July 07, 2022 12:00am October 04, 2023 8:25am Collagen (3 sources) Start: 10-04-2023 Collagen Active 1 {tbl} PO DAILY October 04, 2023 12:00am cyclobenzaprine hydrochloride 10 mg oral tablet (3 sources) Muscle Relaxant Start: 03-17-2024 take 1 tablet by mouth three times daily as needed for muscle spasms Cyclobenzaprine 10 mg tablet Active 10 mg PO THREE TIMES A DAY as needed for muscle spasm 14 0 March 17, 2024 1:00am [place] 4-Ick-Igr-Fish Oil (1 source) Start: 07-07-2022 take 1 capsule by mouth once daily [place] 7-Umu-Vbq-Fish Oil Active 1 CAP PO DAILY July 07, 2022 12:00am Fibra Syntropy (3 sources) Start: 10-04-2023 Fibra Syntropy Active 1 {tbl} PO TWICE A DAY October 04, 2023 12:00am [place] Fortifier (3 sources) Start: 10-04-2023 [place] Fortifier Active 1 {tbl} PO TWICE A DAY October 04, 2023 12:00am Glutomine Complex (3 sources) Start: 10-04-2023 Glutomine Complex Active 1 {tbl} PO DAILY October 04, 2023 12:00am 1 Scoop orally twice a day; Hypo Zymase (3 sources) Start: 10-04-2023 Hypo Zymase Active 2 {tbl} PO 3 times per day with meals October 04, 2023 12:00am Lactobacillus acidophilus (3 sources) Start: 10-04-2023 Lactobacillus Acidophilus (Acidophilus) capsule Active 1000 NMA PO DAILY October 04, 2023 12:00am magnesium citrate 100 mg oral tablet (3 sources) Start: 10-04-2023 take 1 capsule by mouth twice daily Magnesium Citrate 100 mg capsule Active 100 mg PO TWICE A DAY October 04, 2023 12:00am magnesium oxide 400 mg oral tablet (1 source) Start: 07-07-2022 take 400 mg by mouth once daily Magnesium Oxide Active 400 MG PO DAILY July 07, 2022 12:00am mecobalamin (1 source) Start: 07-07-2022 Mecobalamin (Vitamin B12) Active MCG PO July 07, 2022 12:00am Methyl B12 liquid (3 sources) Start: 10-04-2023 Methyl B12 liquid Active 8 NMA INTRANASAL DAILY October 04, 2023 12:00am omeprazole 40 mg delayed release oral capsule (13 sources) Proton Pump Inhibitor Start: 11-29-2023 take 1 capsule by mouth twice daily Omeprazole 40 mg capsule,delayed release(DR/EC) Active 40 mg PO TWICE A DAY 180 90 1 November 29, 2023 8:30am GERD Start: 10-04-2023 End: 11-29-2023 take 1 capsule by mouth once daily as needed for gastroesophageal reflux disease Omeprazole 40 mg capsule,delayed release(DR/EC) Discontinued 40 mg PO DAILY as needed for GERD October 04, 2023 8:25am November 29, 2023 8:31am Start: 07-07-2022 End: 10-04-2023 Omeprazole 40 mg capsule,del ayed release(DR/EC) Discontinued 40 mg PO NEEDED July 07, 2022 12:00am October 04, 2023 8:41am GERD Start: 07-07-2022 Omeprazole Act indu 40 MG PO NEEDED July 06, 2022 11:00pm [place] (3 sources) Start: 10-04-2023 [place] Act indu 1 {tbl} PO DAILY October 04, 2023 12:00am vitamin a 2.4 mg oral capsule (3 sources) Vitamin A Start: 10-04-2023 Vitamin A 2,40 0 mcg capsule Active 2400 ug PO DAILY October 04, 2023 12:00am Vitamin A Tldvvbuqj-H-Odmimlle (1 source) Start: 07-07-2022 Vitamin A Mhovdofzo-I-Wbumdys e Active TABLET PO July 07, 2022 12:00am Vitamin C +Iron (3 sources) Start: 10-04-2023 Vitamin C +Iro n Active 2 {tbl} PO DAILY October 04, 2023 12:00am Vitamin D3-Vit K1-Vit Mk4-Mk7 50-500-1,500 mcg capsule (3 sources) Start: 10-04-2023 take 50-500 capsules by mouth once daily Vitamin D3-Vit K1-Vit Mk4-Mk7 50-500-1,500 mcg capsule Active 1 NMA PO DAILY October 04, 2023 12:00am vitamin e 100 unt oral capsule (1 source) Start: 07-07-2022 take 45 mg by mouth once daily Vitamin E (Dl, Acetate) Active 45 MG PO DAILY July 07, 2022 12:00am Vitamin E Mixed 400 unit tablet (3 sources) Start: 10-04-2023 Vitamin E Mixe d 400 unit tablet Active 400 U PO TWICE A DAY October 04, 2023 12:00am zinc gluconate 50 mg oral tablet (4 sources) Start: 10-04-2023 take 1 tablet by mouth once daily Zinc Gluconate 50 mg tablet Active 50 mg PO DAILY October 04, 2023 12:00am Start: 07-07-2022 take 10 mg by mouth once daily Zinc Gluconate Active 10 MG PO DAILY July 07, 2022 12:00am Completed/Discontinued Medications Medication Drug Class(es) Dates Sig (Normalized) Sig (Original) azithromycin 250 mg oral tablet (20 sources) Macrolide Antimicrobial Start: 02-01-2023 End: 10-04-2023 take 2-5 tablets by mouth once daily Azithromycin 250 mg tablet Discontinued 0 PO .COMPLEX 6 0 February 01, 2023 1:00am October 04, 2023 8:25am take 500 mg today (day 1), then 250 mg for 4 days (days 2-5) PO Start: 06-07-2019 End: 01-21-2022 take 2-5 tablets by mouth once daily Azithromycin 250 mg tablet Discontinued 0 PO .COMPLEX 6 0 August 10, 2021 12:28pm January 21, 2022 8:32am take 500 mg today (day 1), then 250 mg for 4 days (days 2-5) benzonatate 100 mg oral capsule (6 sources) Non-narcotic Antitussive Start: 02-01-2023 End: 10-04-2023 take 2 capsules by mouth three times daily as needed for cough Benzonatate 100 mg capsule Discontinued 200 mg PO THREE TIMES A DAY as needed for cough 30 April 19, 2023 1:00am October 04, 2023 8:25am cephalexin 500 mg oral capsule (3 sources) Cephalosporin Antibacterial Start: 10-07-2023 End: 12-17-2023 take 1 capsule by mouth three times daily Cephalexin 500 mg capsule Discontinued 500 mg PO THREE TIMES A DAY 15 0 October 07, 2023 12:00am December 17, 2023 8:50am dexamethasone 6 mg oral tablet (20 sources) Corticosteroid Start: 04-19-2023 End: 10-04-2023 take 1 tablet by mouth once daily Dexamethasone 6 mg tablet Discontinued 6 mg PO DAILY 5 April 19, 2023 1:00am October 04, 2023 8:25am Start: 08-10-2021 End: 01-26-2022 take 1 tablet by mouth once daily Dexamethasone 6 mg tablet Discontinued 6 mg PO DAILY 5 5 January 21, 2022 12:00am January 25, 2022 1:00am January 26, 2022 1:04am doxycycline hyclate 100 mg oral capsule (2 sources) Tetracycline-class Drug Start: 06-22-2024 End: 06-29-2024 take 1 capsule by mouth twice daily Doxycycline Hyclate 100 mg capsule Discontinued 100 mg PO TWICE A DAY 14 7 0 June 22, 2024 12:00am June 28, 2024 12:00am June 29, 2024 12:05am methylPREDNISolone 4 mg oral tablet (3 sources) Corticosteroid Start: 02-01-2023 End: 02-07-2023 take 1 tablet by mouth once Methylprednisolone (Medrol (Mickey)) 4 mg tablets,dose pack Discontinued 4 mg PO per package directions 21 6 0 February 01, 2023 1:00am February 06, 2023 1:00am February 07, 2023 1:04am naproxen 250 mg oral tablet (6 sources) Nonsteroidal Anti-inflammatory Drug Start: 10-16-2022 End: 10-04-2023 take 2 tablets by mouth once daily as needed for pain Naproxen 250 mg tablet Discontinued 500 mg PO DAILY as needed for pain October 16, 2022 12:00am October 04, 2023 8:26am Start: 10-16-2022 take 500 mg by mouth once madeleine y Naproxen Active 500 MG PO DAILY October 15, 2022 11:00pm predniSONE 10 mg oral tablet (13 sources) Start: 06-22-2024 End: 06-24-2024 Prednisone 10 mg tablet Discontinued 10 mg PO As Directed 5 2 0 June 22, 2024 12:00am June 23, 2024 12:00am June 24, 2024 12:10am 30mg today, 20mg on day two Start: 06-07-2019 End: 06-18-2019 Prednisone 20 mg tablet Disc ontinued 0 PO .COMPLEX 19 June 07, 2019 12:00am June 17, 2019 12:00am June 18, 2019 12:07am 3 tabs x 3 days, 2 tabs x 3 days, 1 tab x 3 days, 1/2 tab x 2 days PO ; Start: 06-07-2019 End: 06-18-2019 Prednisone Discontinued 0 PO .COMPLEX 19 June 06, 2019 11:00pm June 17, 2019 11:07pm 3 tabs x 3 days, 2 tabs x 3 days, 1 tab x 3 days, 1/2 tab x 2 days PO ; Problems Active Problems Problem Classification Problem Date Documented Da te Episodic/Chronic Asthma (3 sources) Asthmatic bronchitis; Translations: [Unspecified asthma with (acute) exacerbation] 02-01-2023 Chronic Chronic obstructive pulmonary disease and bronchiectasis (12 sources) Bronchitis; Translations: [Bronchitis, not specified as acute or chronic] Episodic Disorders of lipid metabolism (4 sources) Hypertriglyceridemia; Translations: [Pure hyperglyceridemia] Onset: 4 10-04-2023 Chronic Esophageal disorders (16 sources) Gastroesophageal reflux disease; Translations: [Gastro-esophageal reflux disease without esophagitis] Onset: 4 10-31-2023 Chronic Osteoporosis (4 sources) Osteoporosis; Translations: [Age-related osteoporosis without current pathological fracture] Onset: 4 10-04-2023 Chronic Other and unspecified benign neoplasm (3 sources) History of polyp of colon; Translations: [History of colonic polyps] 12-26-2023 Episodic Comment on above: x 4. Friend Other and unspecified benign neoplasm (3 sources) Polyp of colon; Translations: [Polyp of colon] 12-26-2023 Episodic Other female genital disorders (3 sources) Ectropion of cervix; Translations: [Erosion and ectropion of cervix uteri] 12-17-2023 Episodic Other gastrointestinal disorders (3 sources) Intestinal malabsorption; Translations: [Intestinal malabsorption, unspecified] 10-04-2023 Chronic Other gastrointestinal disorders (1 source) Intestinal malabsorption, unspecified; Translations: [Intestinal malabsorption, unspecified] Onset: Chronic Other lower respiratory disease (9 sources) Cough; Translations: [Acute cough] Episodic Other lower respiratory disease (12 sources) Wheezing; Translations: [Wheezing] 01-21-2022 Episodic Other lower respiratory disease (2 sources) Wheezing; Translations: [Wheezing] Episodic Other lower respiratory disease (3 sources) Cough; Translations: [Acute cough] 12-17-2023 Episodic Other lower respiratory disease (4 sources) Rib pain; Translations: [Pleurodynia] 03-17-2024 Episodic Other screening for suspected conditions (not mental disorders or infectious disease) (12 sources) Patient encounter status; Translations: [Encounter for screening for malignant neoplasm of colon] Onset: 4 07-07-2022 Episodic Comment on above: Negative empower gen etic test Other skin disorders (3 sources) Skin lesion; Translations: [Disorder of the skin and subcutaneous tissue, unspecified] 12-17-2023 Episodic Other upper respiratory infections (12 sources) Acute sinusitis; Translations: [Acute sinusitis, unspecified] Episodic Residual codes; unclassified (3 sources) Family history of cancer; Translations: [Family history of malignant neoplasm of other organs or systems] 12-26-2023 Episodic Comment on above: Father - skin Spondylosis; intervertebral disc disorders; other back problems (2 sources) Radiculopathy, lumbar region; Translations: [Radiculopathy, lumbar region] Onset: Episodic Viral infection (12 sources) Disease caused by 2019-nCoV; Translations: [COVID-19] Episodic Past or Other Problems Problem Classification Problem Date Documented Da te Episodic/Chronic Open wounds of extremities (5 sources) Laceration of finger; Translations: [Laceration without foreign body of unspecified finger without damage to nail, initial encounter] Onset: 10-16-2023 10-15-2023 Episodic Other female genital disorders (1 source) Polyp of corpus uteri; Translations: [Polyp of corpus uteri] Onset: 11-20-2023 Episodic Other lower respiratory disease (1 source) Pleurodynia; Translations: [Pleurodynia] Onset: 04-09-2024 Episodic Unclassified (11 sources) BPD-DS 10-06-2021 Results Test Name Value Interpretation Reference Range Facility Breast imaging reportOrdered By: Deb Sterling on 09-17-2024 Study report [facility] [address] [place], [place] [address] SCRN MAMM (CAD)W/CHARISSE BILAT MR#: [id number] Acct: [id number] Name: JEREMIAH LATIF Rep #: [id number] : 1970 F 54 From: Spring Sterling MD PCP: Dr. Andreea Zuluaga MD Status: [facility] Study:SCRN MAMM (CAD)W/CHARISSE BILAT Date of Exa m: 09/17/24 Exam# [id number] Ordering Dr: Mitra Zuluaga MD EXAM: SCRN MAMM (CAD)W/CHARSISE BILAT DATE: 09/17/2024 CLINICAL HISTORY: F, Age 54 y/o , SCREENING TECHNIQUE: SCRN MAMM (CAD)W/CHARISSE BILAT COMPARISON: Prior exam(s) dated 07/18/2022, 09/11/2023. FINDINGS: TISSUE DENSITY: The breasts are almost entirely fatty. Bilateral Breast Mammographic Findings: No significant masses, calcifications or other abnormalities are identified. BI/SCRN MAMM (CAD)W/CHARISSE BILAT IMPRESSION: There is no mammographic evidence of malignancy. OVERALL FINAL ASSESSMENT BI-RADS 1: NEGATIVE. RECOMMEND ANNUAL MAMMOGRAPHIC SCREENING. RECOMMENDATION: Routine annual follow-up in 1 Year A letter with findings and recommendations will be mailed to the patient. Reading Location: [facility] CC: Dr. Andreea Zuluaga MD ~ Enterprise Resource Planning Consultant: Signed [facility] SCRN MAMM (CAD)W/CHARISSE BILATo n 09-17-2024 SCRN MAMM (CAD)W/CHARISSE BILAT [facility] [address] [place], [place] [address] SCRN MAMM (CAD)W/CHARISSE BILAT MR#: [id number] Acct: [id number] Name: JEREMIAH LATIF Rep #: [id number] : 1970 F 54 From: Deb Sterling MD PCP: Dr. Andreea Zuluaga MD [facility] Study: SCRN MAMM (CAD)W/CHARISSE BILAT Date of Exam: 05/13 Exam# [id number] Ordering Dr: Andreea Zuluaga EXAM: SCRN MAMM (CAD)W/CHARISSE BILAT DATE: 09/17/2024 CLINICAL HISTORY: F, Age 54 y/o , SCREENING TECHNIQUE: SCRN MAMM (CAD)W/CHARISSE BILAT COMPARISON: Prior exam(s) dated 07/18/2022, 09/11/2023. FINDINGS: TISSUE DENSITY: The breasts are almost entirely fatty. Bilateral Breast Mammographic Findings: No significant masses, calcifications or other abnormalities are identified. BI/SCRN MAMM (CAD)W/CHARISSE BILAT IMPRESSION: There is no mammographic evidence of malignancy. OVERALL FINAL ASSESSMENT BI-RADS 1: NEGATIVE. RECOMMEND ANNUAL MAMMOGRAPHIC SCREENING. RECOMMENDATION: Routine annual follow-up in 1 Year A letter with findings and recommendations will be mailed to the patient. Reading Location: [id number] CC: Dr. Andreea Zuluaga MD Enterprise Resource Planning Consultant: Signed Normal [facility] L/S Spine Min 4 Viewson L/S Spine Min 4 Views [facility] [address] [place], [place] [address] L/S Spine Min 4 Views MR#: [id number] Acct: [id number] Name: JEREMIAH LATIF Rep #: [id number] : 1970 F 54 From: Jose Daniel ross MD PCP: Dr. Andreea Zuluaga MD Status: REG CLI Study: L/S Spine Min 4 Views Date of Exam: 08/18/24 Exam# [id number] Ordering Dr: Luther Love DPM PROCEDURE: L/S SPINE MIN 4 VIEWS 08/18/2024 REASON FOR EXAM: PAIN TECHNIQUE: Standing AP view(s) of the thoracic and lumbar spine. COMPARISON: None. FINDINGS: Mild degenerative levoscoliosis apex at L3. Grade 1 anterolisthesis of L4 on L5. There are diffuse spondylotic changes. Findings are demonstrated to by diffuse disc space narrowing, osteophyte formation and degenerative endplate sclerosis. There is diffuse facet joint arthropathy with secondary bilateral neural foramina narrowing. No fracture or dislocation is seen. No aggressive lytic or blastic bony lesion is noted. RAD/L/S Spine Min 4 Views IMPRESSION: Spondylosis. Findings are more prominent at L4-L5 and L5-S1 levels. Grade 1 retrolisthesis of L4 on L5. Mildly exaggerated lumbar lordosis. [facility] CC: ARAVIND Love; Dr. Andreea Zuluaga MD Enterprise Resource Planning Consultant: Signed Normal [facility] Re-Evaluation - PT (1)on Re-Evaluation - PT (1) [facility] [address] [place] [address] / REEVALUATION / MEDICARE RECERTIFICATION PHYSICAL THERAPY MR#: [id number] Acct: [id number] Name: JEREMIAH LATIF Rep #: [id number] : 1970 53 From: Alfreda Nagel PT, Cert. MDT Referring Dr.: ARAVIND Love Status:REG RCR Insurance: [facility] SELF PAY INSURANCE Re-Evaluation Intro: Dr. Luther Love, ARAVIND, It has been my pleasure to treat JEREMIAH LATIF over the last 7 visits for R PERONEAL TENDONITIS. Please see the progress note below for an update on the physical therapy plan of care! Subjective Subjective: PATIENT REPORTS HER FOOT IS NOTICEABLY NOT BURNING MUCH IT WAS BEFORE STARTING PT. STATES SHE WAS ON PREDNISONE FOR HER LUNGS FOR 5 DAYS AND SHE DIDN'T FEEL LIKE HER FEET WERE SWOLLEN DURING THAT TIME BUT DOESN'T THINK IT HELPED HER R FOOT PAIN MUCH. STATES HER NEW ORTHOTICS ARE IN BUT SHE HAS NOT PICKED THEM UP YET. PATIENT REPORTS SHE HAS A LOT GOING ON WITH HRE FEET SO IT IS STILL DIFFICULT FOR HER TO WALK FOR A FEW STEPS WHEN SHE FIRST GETS UP AFTER SITTING ESPECIALLY AT THE END OF THE DAY BUT THEN IT GETS BETTER SHE KEEPS GOING. SHE REPORTS SHE COULD STILL GET OUT AND WALK AND HOUR RIGHT NOW IF SHE WANTED TO EVEN THOUGH IT IS THE END OF THE DAY. STATES ONLY DOING HOME STRETCHES ABOUT 3 TIMES A WEEK BECAUSE SHE GETS BUSY AND TENDS TO FORGET OR IS TOO TIRED SO DOES THEM WHEN SHE CAN. Objective Objective/Function: PATIENT WAS SEEN TODAY FOR RE-ASSESSMENT OF PROGRESS TOWARD THE SET PT GOALS AND THE NEED FOR FURTHER PHYSICAL THERAPY VS READINESS FOR DISCHARGE. PATIENTS C/O PAIN REMAINS IN THE REGION OF THE PERONEAL TENDONS. RECOMMENDED PHYSICIAN RE-CHECK DUE TO PATIENT TRYING DEEP TISSUE MASSAGE WITH MASSAGE THERAPISTS (FOOT MASSAGE), , AND PT IN ADDITION TO ULTRASOUND TREATMENTS, THER EX WITH PT, PRESCRIPTION CREAM AND RECENT PREDNISONE OVER PAST YEAR WITH MINIMAL BENEFIT PRIOR TO TRIAL OF DRY NEEDLING AND/OR SHOCKWAVE THERAPY WITH OUT OF POCKET EXPENSE. PATIENT AGREEABLE. RECOMMENDED PATIENT BE DELIGENT WITH HEP BETWEEN NOW AND RE-CHECK. FURTHER EDUCATION GIVEN TO PATIENT ON DIAGNOSIS, SHOCKWAVE TREATMENT AND DRY NEEDLING IN ADDITION TO IONTOPHORESIS AND INSURANCE COVERAGE. UPON EXAM TODAY: LEFS QUESTIONNAIRE SCORE HAS IMPROVED BY 5 POINTS. SHE HAS NO ACUTE TENDERNESS WITH PALPATION ALONG THE PERONEAL TENDONS TODAY AND R ANKLE STRENGTH IS 5/5 WITH MMT'ING. SHE IS ABLE TO HEEL RAISE WITHOUT C/O INCREASED SX'S, TOE RAISE WITH C/O MILD INCREASE SX'S AND SLS WITHOUT UE ASSIST X > 20 SEC BUT SX'S ARE EASILY PROVOKED WITH THIS ACTIVITY ANKLE MUSCLES WORK TO STABILIZE HER JOINT. CURRENT EX SESSIONS INCLUDE: Incline stretch 3x30 each Gastrocnemius and Soleus. Long sitting calf stretch /w strap 30 x3 Supine HS stretch with strap 3x30 4 way ankle HEP for RIGHT ANKLE Blue band -EV 2x15 -IV 2x15 -DF 2x15 PF 2x10 standing heel raise 2x10 heel raise on /2 block 1x10 lateral step down tap L heel to floor 4 step 2x10 step calf stretch w/ heel drop down, 30 x3. Step up to balance 6 box 2x10 B Plan Plan Plan: PHYSICIAN RE-ASSESSMENT WHEN SHE GOES TO GET HER NEW ORTHOTICS FITTED - PATIENT AGREEABLE. PATIENT MAY BENEFIT FROM FURTHER IMAGING. CONSIDER SHOCKWAVE THERAPY AND DRY NEEDLING IF FURTHER THERAPY INDICATED. PATIENT TO CALL TO SCHEDULE FOLLOW UP IF NEEDED AFTER PHYSICIAN ASSESSMENT. Balance/Gait/Functional tests Balance/Special Test Scores Lower Extremity Functional Score: 62 Goals Goals Goal 1:: DECREASE C/O R FOOT PAIN BY AT LEAST 50% TO EASE ADL'S Goal Time Frame: 4-6 Weeks Goal Progress: Progressing Goal 2:: INDEP HEP Goal Time Frame: 4-6 Weeks Goal Progress: Progressing Anticipated Interventions Anticipated Interventions Patient/Client Instruction: Educate patient on: Condition, Plan of Care and Risk Factors For the Purpose of:: To improve self management Therapeutic Exercise to Include: Strength training, Flexibilty training, Gait and locomotor training and Neuromotor development For the Purpose of:: To decrease pain, To increase ROM, To improve muscle performance and motor function, To increase tolerance to activity/condition/position , To improve ability of physical actions for home/community/work/leisure , To improve gait and locomotor functions and To improve self management Manual Therapy Techniques to Include: Mobilization and Soft tissue mobilization For the Purpose of:: To decrease pain, To increase ROM and To improve nutrient delivery to tissue Iontophoresis (with Dexamethozone, with Acetic acid): Yes Cryotherapy (ice pack, ice massage): Yes Thermo therapy (hot pack): Yes Ultrasound (thermal/non thermal): Yes (50% 1.2 W/CM2 X 8 MIN) Fluidotherapy: Yes For the Purpose of:: To de (more content not included)... [facility] Urgent Care Visit Reporton 0 06-22-2024 Urgent Care Visit Report [facility] [address], [address] [place] [address] OFFICE VISIT Date of Service: 06/22/24 MR#: [id number] Acct: [id number] Name: JEREMIAH LATIF Rep #: [id number] : 1970 Provider: RAMYA palacio Age/Sex: 53/F Location: [facility] Status: Signed Intake Vital Signs 05/30/24 05:46 06/22/24 11:56 Height 5 ft 5 in BP 110/60 Blood Pressure Location Lt brachial Position Sitting Respiration 15 Pulse 77 Pulse Source NIBP Temp 98.1 F Temp Source Oral Pulse Oximetry (%) 99 Oxygen Delivery Method room air Intake Visit Reasons: Wheezing Chief Complaint: wheezing Fish 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 recent viral illness including congestion, BRYANT, BA, fatigue. pt believes settled in her lungs. denies hx asthma. pt had Prednisone 10mg at home, took once daily x 3 days without relief as well as inhaler from previous illness. pt concerned there is an infection since prednisone did not help. [facility] Medical History Cancer Migraine headache Restless legs Gastric reflux Former smoker Asthma Rib pain on left side Arthritis Hypertriglyceridemia Malabsorption Osteoporosis History of stress test Normal stress echocardiogram Wears glasses Back pain Gastric reflux Former smoker Shortness of breath on exertion COVID-19 BPD-DS Surgical History S/P endometrial ablation Hx of tubal ligation Status post biliopancreatic diversion with duodenal switch History of appendectomy History of Family History Father Kidney disease Hypertension Heart disease Diabetes Skin cancer Mother COPD (chronic obstructive pulmonary disease) Aunt Esophageal cancer Social History household members: spouse Smoking Status: Former smoker pack-years: 12 Tobacco: How many years used: 12 how long ago did patient quit smokin years ago alcohol intake: current alcohol intake frequency: holidays/special occasions only substance use type: does not use seatbelt use: always do you feel safe at home: Yes additional social history: -Miguel Sloan [facility] HPI Chief Complaint: wheezing Details: JEREMIAH LATIF, is a 53 F who presents to the office today for concerns for ongoing wheezing for the last 4-5 days. She acknowledges multiple URI symptoms for the last week, but feels this to be worsening with more chest congestion. She had old prescription of prednisone and took prednisone 10 mg p.o. daily x 3 days. ROS Const Constitutional: No body ache, chills, fatigue, fever(s), headache(s) or change in appetite Eyes Eyes: No blurry vision, change in vision, double vision, irritation, discharge, vision loss, dry eyes, bulging eyes, floaters, visual disturbances, eye pain, Light sensitivity, spots in vision, tunnel vision or other ENT ENT: No ear or mastoid pain, ear discharge, ear pressure, tinnitus, dizziness/vertigo, nosebleed/epistaxis, nasal congestion, nose pain, sinus pressure, sinus pain, nasal discharge, post nasal drip, headache(s), facial pain, dental pain, difficulty swallowing, bad breath, hoarseness, lip swelling, mouth lesions, mouth pain, neck pain, sore throat, tongue swelling or throat swelling Resp Respiratory: Positive for chest congestion; No cough, change in phlegm color, hemoptysis, pain on inspiration, shortness of breath, pain with cough, stridor or wheezing Cardio Cardiology: No chest pain at rest, chest pain with exertion, shortness of breath, dyspnea on exertion or lightheadedness Gastro GI: No abdominal pain, change in bowel habits or difficulty swallowing Genitourinary-Female: No burning urination or urinary frequency Musc Musculoskeletal: No joint pain or neck pain Skin Skin: No rash Neuro Neurology: No headache(s) or visual disturbances Psych Psychiatric: No change in appetite Endo Endocrine: No fatigue Aller/Imm Allergy/Immunologic: No lip swelling, throat swelling, tongue swelling or wheezing Exam Const General: cooperative, healthy appearing, comfortable and no acute distress Orientation: alert, awake and oriented x3 HENMT Head: normal to inspection and normocephalic Ears: hearing grossly normal bilaterally, external ears normal and TM's normal bilaterally Nose: external nose normal, nares normal and no nasal discharge Face and sinus: normal facial exam and sinuses nonte (more content not included)... [facility] EGD Reporton 05-30-2024 EGD Report [facility] Medical Records Department [address] [place] [address] EGD Report MR#: [id number] Acct: [id number] Name: JEREMIAH LATIF Rep #: [id number] : 1970 53 From: Omar Vines DO PCP: Dr. Andreea Zuluaga MD Status:[facility] Patient Name: Jeremiah Latif Procedure Date: 05/30/2024 6:35 AM Date of : 1970 Age: 53 Procedure: Upper GI endoscopy Indications: Follow-up of Cross's esophagus Providers: Omar Vines DO Referring MD: Blake Zuluaga Medicines: Monitored Anesthesia Care Patient Profile: This is a 53 year old female. Refer to note in patient chart for documentation of history and physical. Patient has symptoms of acute heartburn. Complications: No immediate complications. Procedure: Pre-Anesthesia Assessment: - Prior to the procedure, a History and Physical was performed, and patient medications and allergies were reviewed. The patient is competent. The risks and benefits of the procedure and the sedation options and risks were discussed with the patient. All questions were answered and informed consent was obtained. Patient identification and proposed procedure were verified by the physician in the pre-procedure area. Mental Status Examination: alert and oriented. Airway Examination: normal oropharyngeal airway and neck mobility. Respiratory Examination: clear to auscultation. CV Examination: normal. ASA Grade Assessment: II - A patient with mild systemic disease. After reviewing the risks and benefits, the patient was deemed in satisfactory condition to undergo the procedure. The anesthesia plan was to use monitored anesthesia care (MAC). Immediately prior to administration of medications, the patient was re-assessed for adequacy to receive sedatives. The heart rate, respiratory rate, oxygen saturations, blood pressure, adequacy of pulmonary ventilation, and response to care were monitored throughout the procedure. The physical status of the patient was re-assessed after the procedure. After obtaining informed consent, the endoscope was passed under direct vision. Throughout the procedure, the patient's blood pressure, pulse, and oxygen saturations were monitored continuously. The Endoscope was introduced through the mouth, and advanced to the second part of duodenum. The upper GI endoscopy was accomplished without difficulty. The patient tolerated the procedure well. 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 The maximum longitudinal extent of these mucosal changes was 2 cm in length. Mucosa was biopsied with a cold forceps for histology in a targeted manner at intervals of 1 cm in the lower third of the esophagus. One specimen bottle was sent to pathology. Verification of patient identification for the specimen was done. Estimated blood loss was minimal. A medium-sized hiatal hernia was present. No gross lesions were noted in the stomach. No gross lesions were noted in the first portion of the duodenum. Impression: - Esophageal mucosal changes secondary to established short-segment Cross's disease. Biopsied. - Medium-sized hiatal hernia. - No gross lesions in the stomach. - No gross lesions in the first portion of the duodenum. Recommendation: - Discharge patient to home. - Resume previous diet. - Continue present medications. - Await pathology results. Procedure Code(s): --- Professional --- 04391, Esophagogastroduodenoscopy, flexible, transoral; with biopsy, single or multiple CPT copyright 2021 [employer]. All rights reserved. The codes documented in this report are preliminary and upon tapper shank review may be revised to meet current compliance requirements. Omar Vines DO 05/30/2024 7:13:59 AM This report has been signed electronically. Number of Addenda: 0 Note Initiated On: 05/30/2024 6:35 AM 05/30/24713 Date Omarcody Vines DO Shaqignne Signature: Date (if indicated) CC: Dr. Andreea Zuluaga MD; Omar Vines DO Date Dictated: 05/30/2435 Date Transcribed: Enterprise Resource Planning Consultant: RAJIV Signed [facility] MR/POSTOP.[facility] 05-30-2024 MR/POSTOP.[facility] Medical Records Department [address] [place] [address] Anesthesia Postop Eval I 05/30/24714 MR#: [id number] Acct: [id number] Name: JEREMIAH LATIF Rep #: [id number] : 1970 53 From: Real Arora PCP: Dr. Andreea Zuluaga MD [place] [place]: C Location: [place] [address] Anesthesia: Postop Eval I Current Vital Signs Temperature: 97.2 F Pulse Rate: 67 Blood Pressure: 121/69 Respiratory Rate: 16 Pulse Ox: 96 Oxygen Delivery Method: Room Air Assessment Airway patent: Yes Spontaneous unlabored respirations: Yes Mental status: Awake and Calm nausea: No Vomiting: No Anesthesia Complication: No Fluid Hydration Crystalloid volume administer (ml): 30 Total IV fluid infused: 30 Progress Note Anesthesia document: Postop Eval 1 completed: Yes 05/30/24715 Date Real Arora Cosigner Signature: CC: Signed [facility] MR/[id number] 05-30-2024 MR/POSTOPAN2 [facility] Medical Records Department [address] [place] [address] Anesthesia Postop Eval II 05/30/24927 MR#: [id number] Acct: [id number] Name: JEREMIAH LATIF Rep #: [id number] : 1970 53 From: Juanito Gomez MD PCP: Dr. Andreea Zuluaga MD Status:[facility] Y Race: C Location: EN Anesthesia Postop Eval I Sum Postop Eval Completion status Anesthesia document: Postop Eval 1 completed: Yes Anesthesia Postop Eval I Summary Anesthesia Postop Eval I Summary: Anesthesia Postop Eval I: Assessment Summary Airway patent Yes 05/30/24 07:16 [email or web address] Spontaneous unlabored Yes 05/30/24 07:16 [email or web address] respirations Mental status Awake,Calm 05/30/24 07:16 [email or web address] nausea No 05/30/24 07:16 [email or web address] Vomiting No 05/30/24 07:16 [email or web address] Anesthesia Postop Eval I: Fluid Summary Crystalloid volume administer 30 05/30/24 07:16 [email or web address] (ml) Colloids volume administered ( ml) Blood Product volume administered (ml) Total IV fluid infused 30 05/30/24 07:16 [email or web address] Anesthesia Postop Eval I: Summary Notes Anesthesia Complication No 05/30/24 07:16 [email or web address] Anesthesia Complication Comment: Post-operative progress note Anesthesia: Postop Eval II Evaluation Mental status: Awake Pain Level: 0 nausea: No Vomiting: No 05/30/24928 Date Juanito Delgadillo Signature: Date CC: Signed [facility] Surgery Specimen Level Shonna 05-30-2024 Surgery Specimen Level IV Patient Age/Sex Location Account Attending Physician JEREMIAH LATIF 53/F EN [id number] Omar Vines DO Specimen: [id number] Received: 05/30/24 Status: CARLOS Shi Num: [id number] Spec Type: EGD BIOPSY Subm Dr: Omar Vines, HEADER OPERATION: EGD with biopsies PRE-OP DIAGNOSIS: Cross's esophagus TISSUE SUBMITTED: A- Distal esophagus biopsy MICROSCOPIC DIAGNOSIS A. Distal esophagus, biopsy: * Columnar mucosa negative for goblet cell metaplasia. * Focal benign squamous mucosa. MICROSCOPIC DESCRIPTION Slides are reviewed. GROSS DESCRIPTION A. Received in fixative is one container labeled with the patient's name and designated Distal esophagus biopsy. The specimen consists of multiple irregular fragments of light lara soft tissue that in aggregate measure 1.4 x 0.3 x 0.2 cm. The specimen is totally submitted in one cassette. AARON/ 05/30/2024 CPT:71543 Patient Age/Sex Location Account Attending Physician JEREMIAH LATIF 53/F EN [id number] Omar Vines DO Signed (signature on file) Dr. Iman Stephen MD 06/05/24 0938 [facility] Comment on above: Performed By: #### P SUIV ####[facility] [address] [place], [address] Inital Evaluation (1) - PTon 05-28-2024 Inital Evaluation (1) - PT [facility] [address] [place] [address] [address] [place] [address] / REHABILITATION SERVICES INITIAL EVALUATION MR#: [id number] Acct: [id number] Name: JEREMIAH LATIF Rep #: [id number] : 1970 53 From: Albania García PT. MDT Referring Dr.: Luther Love DPM Status: [facility] Insurance: [facility] SELF PAY INSURANCE Patient's Visit Information Visit Information Visit Information: JEREMIAH LATIF is a 53 year old F referred to Physical Therapy by Dr. Luther Love DPM with a diagnosis of R PERONEAL TENDONITIS. Date of Evaluation: 05/26/24 Physical Therapist: Alfreda Nagel PT Cert MDT Visit Plan Frequency: 2x /Week Duration: 4-6 Weeks Plan: R FOOT MODALITIES NEEDED. WILL START WITH ULTRASOUND X 5-6 TREATMENTS AND DEEP TISSUE STM ALONG WITH R LE HEP STARTING WITH ANKLE CALF AND HS STRETCHING AND PROGRESSING TO ROM AND STRENGTHENING OPEN AND CLOSED CHAIN ALL PLANES TOLERATED. TODAY: GENTLE R LE WALL LEAN CALF STRETCHING X 3-5 REPS X 10 TO 15 SEC EA, 3 TIMES A DAY TOLERATED. EMPHASIZED NO AVOID PAIN WITH STRETCHING. PATIENT RETURN DEMO'D GOOD TECHNIQUE AND VERBALIZED UNDERSTANDING AFTER INSTRUCTION GIVEN. 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 SITTING X 24 MIN AT A TIME. UP AND DOWN STEPS ABOUT 7 TIMES A DAY. RECESS DUTY 30 MIN A DAY. STANDING X 15 MIN TO GREET MORNING AND 15 MIN AFTERNOON. Disability: NO Present symptoms: R FOOT PAIN ON OUTSIDE AND TOP OF FOOT LATERALLY. PATIENT REPORTS SHE HAS OTHER THINGS GOING ON WITH BOTH OF HER FEET UNRELATED TO THIS AND SHE IS HAVING NEW ORTHOTICS MADE CURRENTLY. Present since: AUGUST OF 2023 Pain Scale: WORST 5/10, LEAST 3/10 Currently: 3/10 Is it getting better, worse or staying the same: STAYING THE SAME Commenced as a result of: NO APPARENT REASON. Symptoms at onset: STATES SHE WAS IN [place] ON VACATION AND THIS AREA OF HER FOOT STARTED BURNING AND STINGING. SHE STATES SHE THOUGHT IT WAS SUN BURNED BUT IT DIDN'T GO AWAY. WHEN SHE CAME HOME THE BONE ON THE OUTSIDE OF HER FOOT FELT BIG AND HARD SO SHE WENT TO FAMILY DOCTOR AND HAD X-RAYS AND THEN WENT TO DR. LOVE. Worse: END OF THE DAY, IN BED AT NIGHT, WALKING FOR EX USE TO BUT HASN'T TRIED LATELY Better: RUBBING THAT SPOT REALLY HARD Disturbed sleep: YES - FALLING ASLEEP OR TRYING TO GET BACK TO SLEEP Previous history/Previous treatment: NEUROPATHY, PLANTAR FASCITIS, H/O HEEL SPURS, ZURI FOOT ARTHRITIS, LONG H/O ORTHOTIC USE Treatment this episode: REFUSED STEROID SHOT AND OPTED FOR PHYSICAL THERAPY INSTEAD. REPORTS SHE DOES NOT RECALL BEING GIVEN ANY EXERCISES OR STRETCHES TO DO BY THE DOCTOR SO HAS NOT BEEN DOING ANY. Imaging: ZURI FOOT X-RAYS - APPROX OCT 2023 PMH/Recent major surgery: OSTEOPOROSIS, Cross's esophagus. Objective Objective: THIS PATIENT AMBULATES INDEP'LY INTO PT WITHOUT ANY AD'S OR GROSS DEVIATIONS NOTED. NO ACUTE TENDERNESS WITH PALPATION TODAY IN AREA PAIN PATIENT POINTS TO. PATIENT IS POINTING TO BASE OF R 5TH METATARSAL REGION AND IN THE REGION OF THE INSERTION OF PERONEUS BREVIS TENDON. R ANKLE STRENGTH IS 5/5 WITH MMT'ING ALL PLANES AND PATIENT DENIES PAIN WITH TESTING. SHE REPORTS THE PAIN EXTENDS ONTO THE TOP OF HER FOOT LATERALLY AND SHE IS NOT TENDER IN THIS AREA EITHER BUT SHE REPORTS PAIN RELIEF WITH DEEP MASSAGE. SHE HAS MILD R ANKLE STIFFNESS ALL PLANES. Balance/Special Test Scores Lower Extremity Functional Score: 57 Goals Goal 1:: DECREASE C/O R FOOT PAIN BY AT LEAST 50% TO EASE ADL'S Goal Time Frame: 4-6 Weeks Goal 2:: INDEP HEP Goal Time Frame: 4-6 Weeks Rehabilitation Potential Physical Therapy Diagnosis: MILD R ANKLE STIFFNESS WITH C/O R LATERAL FOOT PAIN Rehabilitation Potential: Good Anticipated Interventions Patient/Client Instruction: Educate patient on: Condition, Plan of Care and Risk Factors For the Purpose of:: To improve self management Therapeutic Exercise to Include: Strength training, Flexibilty training, Gait and locomotor training and Neuromotor development For the Purpose of:: To decrease pain, To increase ROM, To improve muscle performance and motor function, To increase tolerance to activity/condition/position , To improve ability of physical actions for home/community/work/leisure , To improve gait and locomotor functions and To improve self management Manual Therapy Techniques to Include: Mobilization and Soft tissue mobilization For the Purpose of:: To decrease pain, To increase ROM and To improve nutrient delivery to tissue Iontophoresis (with Dexamethozone, with Acetic acid): Yes Cryotherapy (ice pack, ice massage): Yes Thermo therapy (hot pack): Yes Ultrasound (thermal/non thermal): Yes (50% 1.2 W/CM2 X 8 MIN) Fluidotherapy: Yes For the Purpose of:: To decrease pain, To decrease swelli (more content not included)... [facility] Ribs Uni Min 3V w/PA Cheston 03-17-2024 Ribs Uni Min 3V w/PA Chest [facility] [address] [place] [address] Ribs Uni Min 3V w/PA Chest MR#: [id number] Acct: [id number] Name: JEREMIAH LATIF Rep #: [id number] : 1970 F 53 From: Matheus Quiroga MD PCP: Dr. 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 COMPARISON: Chest radiograph 02/22/2022 FINDINGS: LUNGS AND PLEURAL SPACES: Normal. No consolidation or edema. No pneumothorax. No effusion. HEART: Normal. Normal heart size. MEDIASTINUM: No mediastinal or hilar mass. BONES/JOINTS: Stable chronic fracture of the right sixth rib. No acute rib fracture. RAD/Ribs Uni Min 3V w/PA Chest IMPRESSION: No acute findings in the chest or ribs. Electronically Signed: Matheus Quiroga MD at 14:29 EST , CC: RAMYA Dyer; Dr. Andreea Zuluaga MD Enterprise Resource Planning Consultant: Signed [facility] Urgent Care Visit Reporton 1 Urgent Care Visit Report [facility] [address], [address] [place] [id number] OFFICE VISIT Date of Service: 03/17/24 MR#: [id number] Acct: [id number] Name: JEREMIAH LATIF Rep #: [id number] : 1970 Provider: RAMYA Dyer Age/Sex: 53/F Location: [facility] Status: Signed Intake Vital Signs 12/17/23 08:44 03/17/24 11:29 Height 5 ft 5 in 5 ft 5 in Weight: 213 lb 4 oz 208 lb 6 oz BMI 35.4 34.7 BP 108/74 120/80 Position Sitting Pulse 77 Pulse Oximetry (%) 100 Oxygen Delivery Method room air Intake Visit Reasons: LEFT RIB PAIN/ WOULD LIKE X-RAY Accompanied by: Is patient in pain?: Yes Pain scale (1-10): 5 Allergies No Known Allergies Allergy (Verified 03/17/24 11:57) Medications ???Medication ???Instructions ???Recorded ???Confirmed ???Type Calcium Citrate 800 mg PO .QID 10/04/23 03/17/24 History Catapleat B 3 tab PO BID 10/04/23 03/17/24 History Collagen 1 tab PO DAILY 10/04/23 03/17/24 History Fibra Syntropy 1 tab PO BID 10/04/23 03/17/24 History [place] Fortifier 1 tab PO BID 10/04/23 03/17/24 History Glutomine Complex 1 tab PO DAILY 10/04/23 03/17/24 History Hypo Zymase 2 tab PO TIDWMEAL 10/04/23 03/17/24 History Lactobacillus acidophilus 1,000 mmu cells PO DAILY 10/04/23 03/17/24 History (Acidophilus capsule) Methyl B12 8 spray intranasal DAILY 10/04/23 03/17/24 History Tuna [place] 1 tab PO DAILY 10/04/23 03/17/24 History Vitamin C +Iron 2 tab PO DAILY 10/04/23 03/17/24 History acetylcysteine 600 mg capsule (NAC) 600 mg PO DAILY 10/04/23 03/17/24 History boron 6 mg tablet 12 mg PO BID 10/04/23 03/17/24 History cholecalciferol (vitamin D3) 1,250 1,250 mcg PO 3XW 10/04/23 03/17/24 History mcg (50,000 unit) capsule magnesium citrate 100 mg capsule 100 mg PO BID 10/04/23 03/17/24 History vit D3 50 mcg-vitamin K1 500 1 cap PO DAILY 10/04/23 03/17/24 History mcg-MK4 1,500 mcg-MK7 180 mcg capsule vitamin A 2,400 mcg capsule 2,400 mcg PO DAILY 10/04/23 03/17/24 History vitamin E mixed 400 unit tablet 400 unit PO BID 10/04/23 03/17/24 History zinc gluconate 50 mg tablet 50 mg PO DAILY 10/04/23 03/17/24 History omeprazole 40 mg capsule,delayed 40 mg PO BID GERD 3 months #180 11/29/23 03/17/24 Rx release caps cyclobenzaprine 10 mg tablet 10 mg PO TID PRN muscle spasm #14 03/17/24 03/17/24 Rx tabs Nurse's Note: Patient tripped over her dog this morning and hit a chair and then the chair tipped and got her in the ribs. Patient states this happen about 45-60 mins ago. [facility] Medical History (Updated 03/17/24 @ 12:08 by RAMYA Atkinson) Rib pain on left side Arthritis Hypertriglyceridemia Malabsorption Osteoporosis History of stress test Normal stress echocardiogram Wears glasses Back pain Gastric reflux Former smoker Shortness of breath on exertion COVID-19 BPD-DS Surgical History (Updated 12/17/23 @ 08:52 by Jolie Pablo) S/P endometrial ablation Hx of tubal ligation Status post biliopancreatic diversion with duodenal switch History of appendectomy History of Family History (Updated 12/26/23 @ 12:48 by Laurel Galan LPN) Father Kidney disease Hypertension Heart disease Diabetes Skin cancer Mother COPD (chronic obstructive pulmonary disease) Aunt Esophageal cancer Social History (Updated 12/17/23 @ 08:52 by Jolie Pablo) household members: spouse Smoking Status: Former smoker pack-years: 12 Tobacco: How many years used: 12 how long ago did patient quit smokin years ago alcohol intake: current alcohol intake frequency: holidays/special occasions only substance use type: does not use seatbelt use: always do you feel safe at home: Yes additional social history: -Miguel Sloan HPI HPI Details: JEREMIAH LATIF, is a 53 F who presents to the office today for Coding Level of Care Code Off vis,est,level 3 Diagnoses Rib pain on left side R07.81 Assessment and Plan Assessment and Plan (1) Rib pain on left side: Status: Acute Plan: Patient notified that x-ray of the ribs was unremarkable showing no sign of fracture or concerning issues. Patient was instructed to take slow deep breaths several times per hour. She was given Flexeril for symptomatic relief. She was instructed to slowly resume activities as tolerated. Orders: Orders Ribs Uni Min 3V w/PA Chest Today R07.81 - Pleurodynia Medications: New cyclobenzaprine 10 mg PO TID PRN 14 tabs 0RF muscle spasm 03/17/24 1434 Date Arnaud BUI Cosigner Signature: Date (if applicable) CC: Normal [facility] PAP IG HPV APTIMA 16/18,45on 12-22-2023 ADEQ Comment Normal . [facility] Comment on above: Order Comment: Speci men Comment: [id number] Comment: Source.............CervixSpecimen Comment: Other..............Post MenopausalSpecimen Comment: No. of containers..01 ThinPrep Vial Result Comment: Sati sfactory for evaluation. Endocervical and/or squamous metaplastic cells (endocervical component) are present. Performed By: #### L 7400.0280 ####[facility] [address] [place], [place], [id number] COMM . Normal . [facility] Comment on above: Order Comment: Speci men Comment: [id number] Comment: Source.............CervixSpecimen Comment: Other..............Post MenopausalSpecimen Comment: No. of containers..01 ThinPrep Vial Performed By: #### L 7400.0280 ####[facility] [address] [place], [place], [id number] COMMENT Comment Normal . [facility] Comment on above: Order Comment: Speci men Comment: [id number] Comment: Source.............CervixSpecimen Comment: Other..............Post MenopausalSpecimen Comment: No. of containers..01 ThinPrep Vial Result Comment: This liquid based ThinPrep(R) pap test was screened with the use of an image guided system. Performed By: #### L 7400.0280 ####[facility] [address] [place], [place], [id number] DIAG Comment Normal . [facility] Comment on above: Order Comment: Speci men Comment: [id number] Comment: Source.............CervixSpecimen Comment: Other..............Post MenopausalSpecimen Comment: No. of containers..01 ThinPrep Vial Result Comment: NEGA TIVE FOR INTRAEPITHELIAL LESION OR MALIGNANCY. Performed By: #### L 7400.0280 ####[facility] [address] [facility] [place], [place], [id number] HPV APTIMA, HR Negative Normal Negative [facility] Comment on above: Order Comment: Speci men Comment: [id number] Comment: Source.............CervixSpecimen Comment: Other..............Post MenopausalSpecimen Comment: No. of containers..01 ThinPrep Vial Result Comment: This nucleic acid amplification test detects fourteen high- risk HPV types (16,18,31,33,35,39,45,51,52,56,58,59,66,68) without differentiation. Performed By: #### L 7400.0280 ####[facility] [address] [place], [place], [id number] HPV Kate Rfx Comment Normal . [facility] Comment on above: Order Comment: Speci men Comment: [id number] Comment: Source.............CervixSpecimen Comment: Other..............Post MenopausalSpecimen Comment: No. of containers..01 ThinPrep Vial Result Comment: Crit eria not met, HPV Genotype not performed. Performed at: [address] [id number] Area Representative: Tatyana Mckenzie MD, Phone: [phone] Performed at: = - [address] [id number] Area Representative: Tatyana Mckenzie MD, Phone: [phone] Performed By: #### L 7400.0280 ####[facility] [address] [place], [place], [id number] PAPSMR Comment Normal . [facility] Comment on above: Order Comment: Speci men Comment: [id number] Comment: Source.............CervixSpecimen Comment: Other..............Post MenopausalSpecimen Comment: No. of containers..01 ThinPrep Vial Result Comment: The Pap smear is a screening test designed to aid in the detection of premalignant and malignant conditions of the uterine cervix. It is not a diagnostic procedure and should not be used as the sole means of detecting cervical cancer. Both false-positive and false-negative reports do occur. Performed By: #### L 7400.0280 ####[facility] [address] [place], [place], [id number] PERFORM Comment Normal . [facility] Comment on above: Order Comment: Speci men Comment: [id number] Comment: Source.............CervixSpecimen Comment: Other..............Post MenopausalSpecimen Comment: No. of containers..01 ThinPrep Vial Result Comment: Rosa Maria Short Cottage Supervisor (ASCP) Performed By: #### L 7400.0280 ####[facility] [address] [place], [place], [address] NATERAon 12-17-2023 ROMA SEE SCANNED REPORT Normal [facility] Comment on above: Performed By: #### L 900.0098, L506.1000 ####[facility] [address] [place], [place], [phone] Vp Director Of Creative Strategy Office Visit Reporton 12-17-2023 Vp Director Of Creative Strategy Office Visit Report [facility] [address] [place] [address], [address] [place] [address] OFFICE VISIT Date of Service: 12/17/23 MR#: [id number] Acct: [id number] Name: JEREMIAH LATIF Rep #: [id number] : 1970 Provider: RAMYA le Age/Sex: 53/F [place] [facility] [place]: Signed Intake Vital Signs 11/08/23 06:07 12/17/23 08:44 Height 5 ft 5 in 5 ft 5 in Weight: 213 lb 4 oz BMI 35.4 BP 108/74 Intake Visit Reasons: heterogenous appearance cervix on US Fish Warden Required: No Is patient in pain?: No Allergies No Known Allergies Allergy (Verified 12/17/23 08:47) Medications ???Medication ???Instructions ???Recorded ???Confirmed ???Type Calcium Citrate 800 mg PO .QID 10/04/23 12/17/23 History Catapleat B 3 tab PO BID 10/04/23 12/17/23 History Collagen 1 tab PO DAILY 10/04/23 12/17/23 History Fibra Syntropy 1 tab PO BID 10/04/23 12/17/23 History [place] Fortifier 1 tab PO BID 10/04/23 12/17/23 History Glutomine Complex 1 tab PO DAILY 10/04/23 12/17/23 History Hypo Zymase 2 tab PO TIDWMEAL 10/04/23 12/17/23 History Lactobacillus acidophilus 1,000 mmu cells PO DAILY 10/04/23 12/17/23 History (Acidophilus capsule) Methyl B12 8 spray intranasal DAILY 10/04/23 12/17/23 History Tuna Omeca 1 tab PO DAILY 10/04/23 12/17/23 History Vitamin C +Iron 2 tab PO DAILY 10/04/23 12/17/23 History acetylcysteine 600 mg capsule (NAC) 600 mg PO DAILY 10/04/23 12/17/23 History boron 6 mg tablet 12 mg PO BID 10/04/23 12/17/23 History cholecalciferol (vitamin D3) 1,250 1,250 mcg PO 3XW 10/04/23 12/17/23 History mcg (50,000 unit) capsule magnesium citrate 100 mg capsule 100 mg PO BID 10/04/23 12/17/23 History vit D3 50 mcg-vitamin K1 500 1 cap PO DAILY 10/04/23 12/17/23 History mcg-MK4 1,500 mcg-MK7 180 mcg capsule vitamin A 2,400 mcg capsule 2,400 mcg PO DAILY 10/04/23 12/17/23 History vitamin E mixed 400 unit tablet 400 unit PO BID 10/04/23 12/17/23 History zinc gluconate 50 mg tablet 50 mg PO DAILY 10/04/23 12/17/23 History omeprazole 40 mg capsule,delayed 40 mg PO BID GERD 3 months #180 11/29/23 12/17/23 Rx release caps Is last menstrual period known: No Post menopausal: Yes Patient : No : No Control Method: Tubal PFSH Medical History (Updated 12/17/23 @ 09:41 by Noemí Salas [employer]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, [employer]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) Arthritis Hypertriglyceridemia Malabsorption Osteoporosis History of stress test Normal stress echocardiogram Wears glasses Back pain Gastric reflux Former smoker Shortness of breath on exertion COVID-19 BPD-DS Surgical History (Updated 12/17/23 @ 08:52 by Jolie Pablo) S/P endometrial ablation Hx of tubal ligation Status post biliopancreatic diversion with duodenal switch History of appendectomy History of Family History Father Kidney disease Hypertension Heart disease Diabetes Mother COPD (chronic obstructive pulmonary disease) Social History (Updated 12/17/23 @ 08:52 by Jolie Pablo) household members: spouse Smoking Status: Former smoker pack-years: 12 Tobacco: How many years used: 12 how long ago did patient quit smokin years ago alcohol intake: current alcohol intake frequency: holidays/special occasions only substance use type: does not use seatbelt use: always do you feel safe at home: Yes additional social history: -Miguel AMBROSE heterogenous appearance cervix on US Details: JEREMIAH LATIF is a 53 year old who presents for new patient to discuss heterogeneous appearance of cervix on ultrasound. Otherwise normal US. Denies any vaginal bleeding. Denies history of abnormal paps and last pap was 06/2022 neg pap and HPV per PCP. History 2 Elective abortions Hx Para 2 Spontaneous abortions Hx # Term Pregnancies Ectopic pregnancies Hx # Pregnancies Multiple births # of living children 2 ROS Const Constitutional: Reports system reviewed and no additional complaints, except as documented Eyes Eyes: Reports system reviewed and no additional complaints, except as documented GI GI: Denies abdominal pain or change in bowel habits : Reports as per HPI Exam Const General: cooperative and no acute distress Orientation: oriented x3 General: bladder normal to palpation External Female Exam: normal external appearance and normal appearance of the urethra Urethra: normal appearance of the urethra Speculum Exam - Vagina: normal vaginal discharge, vagina atrophic (mild), no lesions and nontender Speculum Exam - Cervix: closed and other (minimal eversion 10-2:00. No mass. Pap collected) Bimanual Exam- Vagina Uterus: normal bimanual exam, uterine size normal, bladder normal to palpatio (more content not included)... Normal [facility] Vitamin D,25 Hydroxyon 12-16 Vitamin D 25-OH 30.9 ng/mL Normal [facility] Comment on above: Result Comment: Sylvia min D 25(OH) Status Range Deficiency <20 ng/mL (50nmol/L) Insufficiency 20 - 30 ng/mL (50 - 75 nmol/L) Sufficiency 30 - 100 ng/mL (75 - 250 nmol/L) Toxicity >100 ng/mL (>250 nmol/L) Performed By: #### L 900.0098, L506.1000 ####[facility] [address] [place], [address] Gastroenterology Visit Repor ton 11-29-2023 Gastroenterology Visit Report [facility] [address] [place] [address] OFFICE VISIT Date of Service: 11/29/23 MR#: [id number] Acct: [id number] Name: ADILIAJEREMIAH LONDON Rep #: [id number] : 1970 Provider: Omar Vines DO Age/Sex: 53/F Location: [facility] [place] Status: Signed Intake Vital Signs 11/08/23 06:07 Height 5 ft 5 in Intake Visit Reasons: Follow up from procedure Allergies No Known Allergies Allergy (Verified 11/08/23 06:04) Medications ???Medication ???Instructions ???Recorded ???Confirmed ???Type Calcium Citrate 800 mg PO .QID 10/04/23 11/29/23 History Catapleat B 3 tab PO BID 10/04/23 11/29/23 History Collagen 1 tab PO DAILY 10/04/23 11/29/23 History Fibra Syntropy 1 tab PO BID 10/04/23 11/29/23 History [place] Fortifier 1 tab PO BID 10/04/23 11/29/23 History Glutomine Complex 1 tab PO DAILY 10/04/23 11/29/23 History Hypo Zymase 2 tab PO TIDWMEAL 10/04/23 11/29/23 History Lactobacillus acidophilus 1,000 mmu cells PO DAILY 10/04/23 11/29/23 History (Acidophilus capsule) Methyl B12 8 spray intranasal DAILY 10/04/23 11/29/23 History Tuna [place] 1 tab PO DAILY 10/04/23 11/29/23 History Vitamin C +Iron 2 tab PO DAILY 10/04/23 11/29/23 History acetylcysteine 600 mg capsule (NAC) 600 mg PO DAILY 10/04/23 11/29/23 History boron 6 mg tablet 12 mg PO BID 10/04/23 11/29/23 History cholecalciferol (vitamin D3) 1,250 1,250 mcg PO 3XW 10/04/23 11/29/23 History mcg (50,000 unit) capsule magnesium citrate 100 mg capsule 100 mg PO BID 10/04/23 11/29/23 History omeprazole 40 mg capsule,delayed 40 mg PO DAILY PRN GERD 10/04/23 11/29/23 History release vit D3 50 mcg-vitamin K1 500 1 cap PO DAILY 10/04/23 11/29/23 History mcg-MK4 1,500 mcg-MK7 180 mcg capsule vitamin A 2,400 mcg capsule 2,400 mcg PO DAILY 10/04/23 11/29/23 History vitamin E mixed 400 unit tablet 400 unit PO BID 10/04/23 11/29/23 History zinc gluconate 50 mg tablet 50 mg PO DAILY 10/04/23 11/29/23 History cephalexin 500 mg capsule 500 mg PO TID #15 caps 07/21/24 09/12/24 Rx PFSH Medical History Arthritis Laceration of left middle finger Hypertriglyceridemia Malabsorption Osteoporosis History of stress test Normal stress echocardiogram Wears glasses Back pain Gastric reflux Former smoker Shortness of breath on exertion COVID-19 BPD-DS Surgical History Hx of tubal ligation Status post biliopancreatic diversion with duodenal switch History of appendectomy History of Family History Father Kidney disease Hypertension Heart disease Diabetes Mother COPD (chronic obstructive pulmonary disease) Social History Smoking Status: Former smoker pack-years: 12 Tobacco: How many years used: 12 how long ago did patient quit smokin years ago alcohol intake: current alcohol intake frequency: holidays/special occasions only substance use type: does not use HPI HPI Details: JEREMIAH LATIF, is a 53 F who presents to the office today for follow up. Colonoscopy 10.17.22 Three 1 to 2 mm polyps in the sigmoid colon, at the splenic flexure and in the ascending colon, removed with a hot snare. Resected and retrieved. Diverticulosis in the sigmoid colon. One 4 mm polyp in the ascending colon, removed with a jumbo cold forceps. Resected and retrieved. *BGI established 10.31.23 pt reports a 25 year history of GERD. She currently has her symptoms managed through supplements and occasional omeprazole and TUMS. Pt reports HB if she eats right before bed and with tomato-based foods. Pt states her aunt of esophageal cancer and would like to get and EGD; pt states she has never had an upper scope. 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 Biopsied. Small hiatal hernia. Widely patent duodenal switch, characterized by healthy appearing mucosa was found. OV 11.29.23 pt reports that she is feeling well overall and only has occasional nausea that she is unable to identify a trigger or pattern for. Pt reports that she would like to discuss her EGD results. ROS Const Constitutional: No fatigue, fever(s) or weight change ENT ENT: No difficulty swallowing Gastro GI: Positive for nausea/dyspepsia; No abdominal pain, belching, bloating, change in bowel habits, change in stool character, coffee ground emesis, constipation, cramping, diarrhea, heartburn, difficulty swallowing, feeling full early, excessive flatus, incontinent of stools, Vomiting blood/hematemesis, Blood in stool, loose stools, Black,tarry stools, pain with swallowing, vomiting or other Musc Musculoskeletal: (more content not included)... Normal [facility] EGD Reporton 11-08-2023 EGD Report [facility] Medical Records Department [address] [place] [address] EGD Report MR#: [id number] Acct: [id number] Name: JEREMIAH LATIF Rep #: [id number] : 1970 53 From: Omar Vines DO PCP: Dr. Andreea Zuluaga MD [place] [facility] [place] Name: Jeremiah Latif Procedure Date: 11/08/2023 6:39 AM Date of : 1970 Age: 53 Procedure: Upper GI endoscopy Indications: Heartburn Providers: Omar Vines DO Referring MD: Blake Zuluaga Medicines: Monitored Anesthesia Care Patient Profile: This is a 53 year old female. Refer to note in patient chart for documentation of history and physical. Patient has symptoms of acute heartburn. Complications: No immediate complications. Procedure: Pre-Anesthesia Assessment: - Prior to the procedure, a History and Physical was performed, and patient medications and allergies were reviewed. The patient is competent. The risks and benefits of the procedure and the sedation options and risks were discussed with the patient. All questions were answered and informed consent was obtained. Patient identification and proposed procedure were verified by the physician in the pre-procedure area. Mental Status Examination: alert and oriented. Airway Examination: normal oropharyngeal airway and neck mobility. Respiratory Examination: clear to auscultation. CV Examination: normal. Prophylactic Antibiotics: The patient does not require prophylactic antibiotics. Prior Anticoagulants: The patient has taken no anticoagulant or antiplatelet agents. ASA Grade Assessment: II - A patient with mild systemic disease. After reviewing the risks and benefits, the patient was deemed in satisfactory condition to undergo the procedure. The anesthesia plan was to use monitored anesthesia care (MAC). Immediately prior to administration of medications, the patient was re-assessed for adequacy to receive sedatives. The heart rate, respiratory rate, oxygen saturations, blood pressure, adequacy of pulmonary ventilation, and response to care were monitored throughout the procedure. The physical status of the patient was re-assessed after the procedure. After obtaining informed consent, the endoscope was passed under direct vision. Throughout the procedure, the patient's blood pressure, pulse, and oxygen saturations were monitored continuously. The Endoscope was introduced through the mouth, and advanced to the second part of duodenum. The upper GI endoscopy was accomplished without difficulty. The patient tolerated the procedure well. Scope In: 6:47:55 AM Scope Out: 6:54:39 AM Total Procedure Duration Time 0 hours 6 minutes 44 seconds Findings: There were esophageal mucosal changes suspicious for short-segment Cross's esophagus present in the lower third of the esophagus. The maximum longitudinal extent of these mucosal changes was 3 cm in length. Mucosa was biopsied with a cold forceps for histology in a targeted manner at intervals of 1 cm in the lower third of the esophagus. One specimen bottle was sent to pathology. Verification of patient identification for the specimen was done. Estimated blood loss was minimal. A small hiatal hernia was present. No other significant abnormalities were identified in a careful examination of the stomach. There was evidence of a widely patent duodenal switch in the anastomosis. This was characterized by healthy appearing mucosa. 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 Biopsied. - Small hiatal hernia. - Widely patent duodenal switch, characterized by healthy appearing mucosa was found. Recommendation: - Discharge patient to home. - Resume previous diet. - Continue present medications. - Await pathology results. Procedure Code(s): --- Professional --- 33719, Esophagogastroduodenoscopy, flexible, transoral; with biopsy, single or multiple CPT copyright 2021 [employer]. All rights reserved. The codes documented in this report are preliminary and upon tapper shank review may be revised to meet current compliance requirements. Omar Vines DO 11/08/2023 7:04:28 AM This report has been signed electronically. Number of Addenda: 0 Note Initiated On: 11/08/2023 6:39 AM 11/08/23 0705 Date Omar Pablo Signature: Date (if indicated) CC: Dr. Andreea Zuluaga MD; Omar Vines DO Date Dictated: 11/08/2339 Date Transcribed: Enterprise Resource Planning Consultant: RAJIV Signed [facility] MR/POSTOP.ANEon 11-08-2023 MR/POSTOP.[facility] Medical Records Department [address] [facility] [place] [address] Anesthesia Postop Eval I 11/08/23701 MR#: [id number] Acct: [id number] Name: JEREMIAH LATIF Rep #: [id number] : 1970 53 From: Real Arora PCP: Dr. Andreea Zuluaga MD [place] [facility] [place] Race[place] C Location: [place] [address] Anesthesia: Postop Eval I Current Vital Signs Temperature: 97 F Pulse Rate: 67 Blood Pressure: 95/47 Respiratory Rate: 16 Pulse Ox: 97 Oxygen Delivery Method: Room Air Assessment Airway patent: Yes Spontaneous unlabored respirations: Yes Mental status: Asleep nausea: No Vomiting: No Anesthesia Complication: No Fluid Hydration Crystalloid volume administer (ml): 400 Total IV fluid infused: 400 Progress Note Anesthesia document: Postop Eval 1 completed: Yes 11/08/23702 Date Real Delgadillo Signature: Date CC: Signed [facility] MR/[id number] 11-08-2023 MR/POSTOPAN2 [facility] Medical Records Department [address] [place] [address] Anesthesia Postop Eval II 11/08/23704 MR#: [id number] Acct: [id number] Name: JEREMIAH LATIF Rep #: [id number] : 1970 53 From: Jeremy Nails MD PCP: Dr. Andreea Zuluaga MD Status:REG [facility] Y Race: C Location: [address] Anesthesia Postop Eval I Sum Postop Eval Completion status Anesthesia document: Postop Eval 1 completed: Yes Anesthesia Postop Eval I Summary Anesthesia Postop Eval I Summary: Anesthesia Postop Eval I: Assessment Summary Airway patent Yes 11/08/23 07:03 [email or web address] Spontaneous unlabored Yes 11/08/23 07:03 [email or web address] respirations Mental status Asleep 11/08/23 07:03 [email or web address] nausea No 11/08/23 07:03 [email or web address] Vomiting No 11/08/23 07:03 [email or web address] Anesthesia Postop Eval I: Fluid Summary Crystalloid volume administer 400 11/08/23 07:03 [email or web address] (ml) Colloids volume administered ( ml) Blood Product volume administered (ml) Total IV fluid infused 400 11/08/23 07:03 [email or web address] Anesthesia Postop Eval I: Summary Notes Anesthesia Complication No 11/08/23 07:03 [email or web address] Anesthesia Complication Comment: Post-operative progress note Anesthesia: Postop Eval II Evaluation Mental status: Awake Pain Level: 0 nausea: No Vomiting: No 11/08/23704 Date Jeremy Nails MD Cosigner Signature: Date CC: Signed [facility] P53 (initial)on 11-08-2023 P53 (initial) ------- Patient Age/Sex Location Account Attending Physician JEREMIAH LATIF 53/F EN [id number] Omar Vines DO Specimen: [id number] Received: 11/09/23 Status: CARLOS Jose Guadalupe Num: [id number] Spec Type: IMMUNO Subm Dr: Omar Vines DO PHYSICIAN INSTITUTION [place] [address] SPECIMEN INFORMATION: Tissue Source: Distal esophagus Clinical Info: GERD Specimen Number: [id number] CPT code: 47888,00622 METHODOLOGY: Deparaffinized sections of prefer/formalin-fixed tissue or PAP/DQ stained slides are incubated with monoclonal/polyclonal antibodies/oligonucleotide probes. Localization is made via biotin free immunoperoxidase method. Appropriate controls are performed and reacted as expected. Results on target cell population are indicated in the following table: RESULTS: ANTIBODY / CLONE RESULT P53 (DO-7) negative (null pattern) Ki-67 (30-9) positive, low These tests were developed and their performance characteristics determined by [facility]. They may not have been cleared or approved by the U.S. Food and Drug Administration. The FDA has determined that such clearance or approval is not necessary. The above immunohistochemical/dualISH markers are ordered and reviewed by the Pathologist. INTERPRETATION: Distal esophagus, biopsy: Negative for dysplasia. 11/12/2023 Signed (signature on file) Dr. Bipin Swanson MD 11/12/23 1034 Normal [facility] Comment on above: Performed By: #### P P53 #### [facility] [address] [place], [address] Special Stain Group Ion 10-18 Special Stain Group I Patient Age/Sex Location Account Attending Physician JEREMIAH LATIF 53/F EN [id number] Omar Vines DO Specimen: [id number] Received: 11/08/23 Status: CARLOS Shi Num: [id number] Spec Type: EGD BIOPSY Subm Dr: Omar Vines, DO HEADER OPERATION: EGD PRE-OP DIAGNOSIS: GERD TISSUE SUBMITTED: Distal esophagus biopsy MICROSCOPIC DIAGNOSIS Distal esophagus, biopsy: Fragments of gastroesophageal mucosa with focal intestinal metaplasia (goblet cell metaplasia) consistent with Cross's esophagus. Moderate acute and chronic inflammation. Negative for dysplasia. See comment. / 11/09/2023 COMMENT Alcian blue/PAS stain with matched control supports the above diagnosis. Immunohistochemistry ([id number]) for P53 and Ki-67 will be performed and results will be reported separately. MICROSCOPIC DESCRIPTION Slides are reviewed. GROSS DESCRIPTION Received in fixative is one container labeled with the patient's name and designated Distal esophagus biopsy. The specimen consists of multiple irregular fragments of light lara soft tissue that in aggregate measure 1.5 x 0.6 x 0.1 cm. The specimen is totally submitted in one cassette. Nayeli 11/08/2023 TC:5 CPT:67622, 50193 Patient Age/Sex Location Account Attending Physician JEREMIAH PAT 53/F EN [id number] Omar Vines DO Signed (signature on file) Dr. Bipin Swanson MD 11/12/2321 Normal [facility] Comment on above: Performed By: #### P SSI #### [facility] [address] [place], [place], [id number] Transvaginal Non-on 11-05-2023 Transvaginal Non- [facility] [address] [place], [place] [id number] Transvaginal Non- MR#: [id number] Acct: [id number] Name: JEREMIAH LATIF Rep #: [id number] : 1970 F 53 From: Justin larkin MD PCP: Dr. 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 Polyp of corpus uteri LMP: Patient is postmenopausal. TECHNIQUE: Transvaginal TECHNICAL QUALITY: Adequate. COMPARISON: None. FINDINGS: The uterus is anteverted and is in a midline position. The uterus measures 6 cm x 3.1 cm x 2 cm. The cervix is of heterogeneous echotexture. A small amount of fluid is seen in the endocervical canal. The endometrium measures 1.3 mm in thickness, and is hyperechoic. There is no demonstrated endometrial mass. There is no demonstrated myometrial mass. I.U.D. - The patient does not have an I.U.D. The right ovary is visualized. The right ovary measures 1.7 cm x 1.2 cm x 1.1 cm. There is no right ovarian cyst or ovarian mass. There is no visualized right adnexal mass or complex lesion. There is normal arterial and normal venous vascularity. The left ovary is visualized. The left ovary measures 1.5 cm x 1.1 cm x 1.5 cm. There is no left ovarian cyst or ovarian mass. There is no visualized left adnexal mass or complex lesion. There is normal arterial and normal venous vascularity. There is no fluid in the cul-de-sac. US/Transvaginal Non- IMPRESSION: Heterogeneous appearance of the cervix. Small amount of fluid is seen in the endocervical canal. Electronically Signed: Justin Gaviria MD at 14:05 EDT , CC: RAMYA Ness; Dr. Andreea Zuluaga MD [employer] Consultant: Signed Normal [facility] L5500.0550on 11-04-2023 BEEF <0.10 Normal Class 0 [facility] Comment on above: Performed By: #### L 3300.1800, L5500.0550 #### [facility] [address] [facility] [address] CHOCOLATE <0.10 Normal Class 0 [facility] Comment on above: Performed By: #### L 3300.1800, L5500.0550 #### [facility] [address] [place] [address] CODFISH <0.10 Normal Class 0 [facility] Comment on above: Performed By: #### L 3300.1800, L5500.0550 #### [facility] [address] [place], [address] COMMENT Comment Normal . [facility] Comment on above: Result Comment: Angie melo of Specific IgE Class Description of Class ----- < 0.10 0 Negative 0.10 - 0.31 0/I Equivocal/Low 0.32 - 0.55 I Low 0.56 - 1.40 II Moderate 1.41 - 3.90 III High 3.91 - 19.00 IV Very High 19.01 - 100.00 V Very High >100.00 Very High Performed By: #### L 3300.1800, L5500.0550 #### [facility] [address] [facility] [address] CORN <0.10 Normal Class 0 [facility] Comment on above: Performed By: #### L 3300.1800, L5500.0550 #### [facility] [address] [place], [address] EGG, WHOLE <0.10 Normal Class 0 [facility] Comment on above: Result Comment: Perf ormed at: - [facility] [id number] Area Representative: Salma Au MD, Phone: [phone] Performed By: #### L 3300.1800, L5500.0550 #### [facility] [address] [place], [address] MILK (COW) <0.10 Normal Class 0 [facility] Comment on above: Performed By: #### L 3300.1800, L5500.0550 #### [facility] [address] [place], [address] MUSSELS <0.10 Normal Class 0 [facility] Comment on above: Performed By: #### L 3300.1800, L5500.0550 #### [facility] [address] [place], [address] PEANUT <0.10 Normal Class 0 [facility] Comment on above: Performed By: #### L 3300.1800, L5500.0550 #### [facility] [address] [place], [address] PORK <0.10 Normal Class 0 [facility] Comment on above: Performed By: #### L 3300.1800, L5500.0550 #### [facility] [address] [place], [address] SALMON <0.10 Normal Class 0 [facility] Comment on above: Performed By: #### L 3300.1800, L5500.0550 #### [facility] [address] [place], [address] SHRIMP <0.10 Normal Class 0 [facility] Comment on above: Performed By: #### L 3300.1800, L5500.0550 #### [facility] [address] [place], [address] SOYBEAN <0.10 Normal Class 0 [facility] Comment on above: Performed By: #### L 3300.1800, L5500.0550 #### [facility] [address] [place], [address] TUNA <0.10 Normal Class 0 [facility] Comment on above: Performed By: #### L 3300.1800, L5500.0550 #### [facility] [address] [place], [address] WHEAT <0.10 Normal Class 0 [facility] Comment on above: Performed By: #### L 3300.1800, L5500.0550 #### [facility] [address] [place], [address] Gastrin, Serumon 11-02-2023 GASTRIN 19 pg/mL Normal 0-115 [facility] Comment on above: Result Comment: [facility] Immulite 2000 Immunochemiluminometric assay (ICMA) Values obtained with different assay methods or kits cannot be used interchangeably. Results cannot be interpreted as absolute evidence of the presence or absence of malignant disease. Performed at: [address] [id number] Area Representative: Salma Au MD, Phone: [phone] Performed By: #### L 3300.1800, L5500.0550 #### [facility] [address] [place], [address] Gastroenterology Visit Repor ton 10-31-2023 Gastroenterology Visit Report [facility] [address] [place] [address] OFFICE VISIT Date of Service: 10/31/23 MR#: [id number] Acct: [id number] Name: JEREMIAH LATIF Rep #: [id number] : 1970 Provider: Omar Vines DO Age/Sex: 53/F Location: BMS.BGI Status: Signed Intake Vital Signs 02/01/23 15:51 10/16/23 12:22 Height 5 ft 4.5 in 5 ft 5 in Intake Visit Reasons: Gastroesophageal reflux disease (GERD) Allergies No Known Allergies Allergy (Verified 10/16/23 12:24) Medications ???Medication ???Instructions ???Recorded ???Confirmed ???Type Calcium Citrate 800 mg PO .QID 10/04/23 10/31/23 History Catapleat B 3 tab PO BID 10/04/23 10/31/23 History Collagen 1 tab PO QHS 10/04/23 10/31/23 History Fibra Syntropy 1 tab PO BID 10/04/23 10/31/23 History [place] Fortifier 1 tab PO BID 10/04/23 10/31/23 History Glutomine Complex See Rx Instructions PO BID 10/04/23 10/31/23 History Hypo Zymase 2 tab PO TIDWMEAL 10/04/23 10/31/23 History Lactobacillus acidophilus 1,000 mmu cells PO DAILY 10/04/23 10/31/23 History (Acidophilus capsule) Methyl B12 8 spray intranasal DAILY 10/04/23 10/31/23 History Tuna [place] 1 tab PO DAILY 10/04/23 10/31/23 History Vitamin C +Iron 1 tab PO DAILY 10/04/23 10/31/23 History acetylcysteine 600 mg capsule (NAC) 600 mg PO DAILY 10/04/23 10/31/23 History boron 6 mg tablet 12 mg PO BID 10/04/23 10/31/23 History cholecalciferol (vitamin D3) 1,250 1,250 mcg PO 3XW 10/04/23 10/31/23 History mcg (50,000 unit) capsule magnesium citrate 100 mg capsule 100 mg PO BID 10/04/23 10/31/23 History omeprazole 40 mg capsule,delayed 40 mg PO DAILY PRN GERD 10/04/23 10/31/23 History release vit D3 50 mcg-vitamin K1 500 1 cap PO DAILY 10/04/23 10/31/23 History mcg-MK4 1,500 mcg-MK7 180 mcg capsule vitamin A 2,400 mcg capsule 2,400 mcg PO DAILY 10/04/23 10/31/23 History vitamin E mixed 400 unit tablet 400 unit PO DAILY 10/04/23 10/31/23 History zinc gluconate 50 mg tablet 50 mg PO DAILY 10/04/23 10/31/23 History cephalexin 500 mg capsule 500 mg PO TID #15 caps 10/07/23 10/31/23 Rx PFSH Medical History (Updated 10/31/23 @ 09:15 by Hermelidna Gutiérrez) Laceration of left middle finger Hypertriglyceridemia Malabsorption Osteoporosis History of stress test Normal stress echocardiogram Wears glasses Back pain Gastric reflux Former smoker Shortness of breath on exertion COVID-19 BPD-DS Surgical History Hx of tubal ligation Status post biliopancreatic diversion with duodenal switch History of appendectomy History of Family History Father Kidney disease Hypertension Heart disease Diabetes Mother COPD (chronic obstructive pulmonary disease) Social History Smoking Status: Former smoker pack-years: 12 Tobacco: How many years used: 12 how long ago did patient quit smokin years ago alcohol intake: current alcohol intake frequency: holidays/special occasions only substance use type: does not use HPI HPI Details: JEREMIAH LATIF, is a 53 F who presents to the office today for initial consult. Colonoscopy 8.04.10 Three 1 to 2 mm polyps in the sigmoid colon, at the splenic flexure and in the ascending colon, removed with a hot snare. Resected and retrieved. Diverticulosis in the sigmoid colon. One 4 mm polyp in the ascending colon, removed with a jumbo cold forceps. Resected and retrieved. *BGI established 8 pt reports a 25 year history of GERD. She currently has her symptoms managed through supplements and occasional omeprazole and TUMS. Pt reports HB if she eats right before bed and with tomato-based foods. Pt states her aunt of esophageal cancer and would like to get and EGD; pt states she has never had an upper scope. ROS Const Constitutional: No fatigue, fever(s) or weight change ENT ENT: No difficulty swallowing Gastro GI: No abdominal pain, belching, bloating, change in bowel habits, change in stool character, coffee ground emesis, constipation, cramping, diarrhea, heartburn, difficulty swallowing, feeling full early, excessive flatus, incontinent of stools, Vomiting blood/hematemesis, Blood in stool, loose stools, Black,tarry stools, nausea/dyspepsia, pain with swallowing, vomiting or other Musc Musculoskeletal: Positive for muscle cramps, numbness, stiffness, tingling and Arthritis; No joint pain Skin Skin: No yellowing of the eye or itchy eyes Neuro Neurology: Positive for numbness and tingling Psych Psychiatric: No anxiety and No depression Endo Endocrine: No fatigue or weight change Aller/Imm Allergy/Immunologic: No itchy eyes Abdullahi/Lymp Hematolog (more content not included)... Normal [facility] Calcium, Urine 24HRon 2023 24HR UR Calcium 180.2 mg/24 HR Normal 42.0-353.0 [facility] Comment on above: Performed By: #### L 500.7000 ####[facility] [address] [place], [address] Calcium UR pH 2 Normal [facility] Comment on above: Performed By: #### L 500.7000 ####[facility] [address] [place], [address] UR Collect Time 24.0 HR Normal 24.0-24.0 [facility] Comment on above: Performed By: #### L 500.7000 ####[facility] [address] [place], [address] UR Total Volume 2650 ml Normal [facility] Comment on above: Performed By: #### L 500.7000 ####[facility] [address] [place], [address] Urine Calcium 6.8 mg/dL Normal Not Estab. [facility] Comment on above: Performed By: #### L 500.7000 ####[facility] [address] [place], [address] Zinc, Plasma or Serumon 08-0 ZINC,PLASMA/SER 72 ug/dL Normal 44-115 [facility] Comment on above: Order Comment: Test( s) 543287-[id number], Plasma or Serumwas developed and its performance characteristicsdetermined by [employer]. It has not been cleared or approvedby the Food and Drug Administration. Result Comment: Dete ction Limit = 5 Performed at: [address] [id number] Area Representative: Salma Au MD, Phone: [phone] Performed By: #### L 506.1000, L500.4050, L500.4100, L509.1000, L100.0100, L503.6550, L501.5200, L503.0105, L3300.9900 ####[facility] [address] [place], [address] CBC W/Diff, Automatedon 07-3 0-2023 Absolute Lymph 2.23 X10 3/uL Normal 0.83-4.51 [facility] Comment on above: Performed By: #### L 506.1000, L500.4050, L500.4100, L509.1000, L100.0100, L503.6550, L501.5200, L503.0105, L3300.9900 #### [facility] [address] [place], [address] Absolute Neut 4.6 X10 3/uL Normal 2.0-7.7 [facility] Comment on above: Performed By: #### L 506.1000, L500.4050, L500.4100, L509.1000, L100.0100, L503.6550, L501.5200, L503.0105, L3300.9900 #### [facility] [address] [place], [address] Basophils/100 WBC (Bld) 0.3 % Normal 0-1 [facility] Comment on above: Performed By: #### L 506.1000, L500.4050, L500.4100, L509.1000, L100.0100, L503.6550, L501.5200, L503.0105, L3300.9900 #### [facility] [address] [place], [address] Eosinophils/100 WBC (Bld) 3.6 % Normal 0-5 [facility] Comment on above: Performed By: #### L 506.1000, L500.4050, L500.4100, L509.1000, L100.0100, L503.6550, L501.5200, L503.0105, L3300.9900 #### [facility] [address] [place], [address] Erythrocyte distribution width (RBC) [Ratio] 12.7 % Normal 11.6-14.6 [facility] Comment on above: Performed By: #### L 506.1000, L500.4050, L500.4100, L509.1000, L100.0100, L503.6550, L501.5200, L503.0105, L3300.9900 #### [facility] [address] [place], [address] Hematocrit (Bld) [Volume fraction] 37.9 % Normal 37-47 [facility] Comment on above: Performed By: #### L 506.1000, L500.4050, L500.4100, L509.1000, L100.0100, L503.6550, L501.5200, L503.0105, L3300.9900 #### [facility] [address] [place], [address] Hemoglobin (Bld) [Mass/Vol] 12.7 g/dL Normal 12.0-15.0 [facility] Comment on above: Performed By: #### L 506.1000, L500.4050, L500.4100, L509.1000, L100.0100, L503.6550, L501.5200, L503.0105, L3300.9900 #### [facility] [address] [place], [address] IG% 0.300 Normal 0.0-0.9 [facility] Comment on above: Result Comment: IG% - Immature Granulocytes (promyelocytes, myelocytes and metamyelocytes) > 1% indicates that a LEFT SHIFT is Present. Performed By: #### L 506.1000, L500.4050, L500.4100, L509.1000, L100.0100, L503.6550, L501.5200, L503.0105, L3300.9900 #### [facility] [address] [place], [address] Lymphocytes/100 WBC (Bld) 29.0 % Normal 19-41 [facility] Comment on above: Performed By: #### L 506.1000, L500.4050, L500.4100, L509.1000, L100.0100, L503.6550, L501.5200, L503.0105, L3300.9900 #### [facility] [address] [place], [address] MCH (RBC) [Entitic mass] 28.3 pg Normal 27.0-32.0 [facility] Comment on above: Performed By: #### L 506.1000, L500.4050, L500.4100, L509.1000, L100.0100, L503.6550, L501.5200, L503.0105, L3300.9900 #### [facility] [address] [place], [address] MCHC (RBC) [Mass/Vol] 33.5 g/dL Normal 32-36 [facility] Comment on above: Performed By: #### L 506.1000, L500.4050, L500.4100, L509.1000, L100.0100, L503.6550, L501.5200, L503.0105, L3300.9900 #### [facility] [address] [place], [address] MCV (RBC) [Entitic vol] 84.6 fL Normal 81-99 [facility] Comment on above: Performed By: #### L 506.1000, L500.4050, L500.4100, L509.1000, L100.0100, L503.6550, L501.5200, L503.0105, L3300.9900 #### [facility] [address] [place], [address] Monocytes/100 WBC (Bld) 7.3 % Normal 0-10 [facility] Comment on above: Performed By: #### L 506.1000, L500.4050, L500.4100, L509.1000, L100.0100, L503.6550, L501.5200, L503.0105, L3300.9900 #### [facility] [address] [facility] [place], [address] Neutrophils/100 WBC (Bld) 59.5 % Normal 47-70 [facility] Comment on above: Performed By: #### L 506.1000, L500.4050, L500.4100, L509.1000, L100.0100, L503.6550, L501.5200, L503.0105, L3300.9900 #### [facility] [address] [facility] [place], [address] Nucleated RBC (Bld) [#/Vol] 0 10*3/uL Normal 0-5 [facility] Comment on above: Performed By: #### L 506.1000, L500.4050, L500.4100, L509.1000, L100.0100, L503.6550, L501.5200, L503.0105, L3300.9900 #### [facility] [address] [facility] [place], [address] Platelet mean volume (Bld) [Entitic vol] 10.8 fL Normal 6.2-12.0 [facility] Comment on above: Performed By: #### L 506.1000, L500.4050, L500.4100, L509.1000, L100.0100, L503.6550, L501.5200, L503.0105, L3300.9900 #### [facility] [address] [place], [address] (266 Platelets (Bld) [#/Vol] 190 10*3/uL Normal 150-450 [facility] Comment on above: Performed By: #### L 506.1000, L500.4050, L500.4100, L509.1000, L100.0100, L503.6550, L501.5200, L503.0105, L3300.9900 #### [facility] [address] [facility] [place], [address] (437 RBC (Bld) [#/Vol] 4.48 10*6/uL Normal 4.2-5.4 [facility] Comment on above: Performed By: #### L 506.1000, L500.4050, L500.4100, L509.1000, L100.0100, L503.6550, L501.5200, L503.0105, L3300.9900 #### [facility] [address] [place], [address] ( RDW SD 38.5 fl Normal 35.1-43.9 [facility] Comment on above: Performed By: #### L 506.1000, L500.4050, L500.4100, L509.1000, L100.0100, L503.6550, L501.5200, L503.0105, L3300.9900 #### [facility] [address] [facility] [place], [address] WBC (Bld) [#/Vol] 7.7 10*3/uL Normal 4.4-11.0 [facility] Comment on above: Performed By: #### L 506.1000, L500.4050, L500.4100, L509.1000, L100.0100, L503.6550, L501.5200, L503.0105, L3300.9900 #### [facility] [address] [place], [place], [address] Comprehensive Metabolic Prof ilon 10-16-2023 Albumin [Mass/Vol] 3.4 g/dL Normal 3.2-5.0 [facility] Comment on above: Performed By: #### L 506.1000, L500.4050, L500.4100, L509.1000, L100.0100, L503.6550, L501.5200, L503.0105, L3300.9900 ####[facility] [address] [place], [place], [address] Albumin/Globulin [Mass ratio] 1.1 {ratio} Normal 0.9-2.4 [facility] Comment on above: Performed By: #### L 506.1000, L500.4050, L500.4100, L509.1000, L100.0100, L503.6550, L501.5200, L503.0105, L3300.9900 ####[facility] [address] [place], [place], [address] ALK P 97 U/L Normal 45-117 [facility] Comment on above: Performed By: #### L 506.1000, L500.4050, L500.4100, L509.1000, L100.0100, L503.6550, L501.5200, L503.0105, L3300.9900 ####[facility] [address] [place], [place], [id number] ALT [Catalytic activity/Vol] 30 U/L Normal 13-56 [facility] Comment on above: Performed By: #### L 506.1000, L500.4050, L500.4100, L509.1000, L100.0100, L503.6550, L501.5200, L503.0105, L3300.9900 ####[facility] [address] [place], [place], [address] AST [Catalytic activity/Vol] 16 U/L Normal 15-37 [facility] Comment on above: Performed By: #### L 506.1000, L500.4050, L500.4100, L509.1000, L100.0100, L503.6550, L501.5200, L503.0105, L3300.9900 ####[facility] [address] [place], [address] Bilirubin [Mass/Vol] 0.50 mg/dL Normal 0.20-1.00 [facility] Comment on above: Result Comment: For patients on eltrombopag therapy, use of Dimension [place] TBIL is not recommended. Performed By: #### L 506.1000, L500.4050, L500.4100, L509.1000, L100.0100, L503.6550, L501.5200, L503.0105, L3300.9900 ####[facility] [address] [place], [place], [phone](507) BUN/CRE 21.7 RATIO High 10-20 [facility] Comment on above: Performed By: #### L 506.1000, L500.4050, L500.4100, L509.1000, L100.0100, L503.6550, L501.5200, L503.0105, L3300.9900 ####[facility] [address] [place], [address] CA,Total 8.5 mg/dL Normal 8.5-10.1 [facility] Comment on above: Performed By: #### L 506.1000, L500.4050, L500.4100, L509.1000, L100.0100, L503.6550, L501.5200, L503.0105, L3300.9900 ####[facility] [address] [place], [address](114) Chloride [Moles/Vol] 107 mmol/L Normal 98-107 [facility] Comment on above: Performed By: #### L 506.1000, L500.4050, L500.4100, L509.1000, L100.0100, L503.6550, L501.5200, L503.0105, L3300.9900 ####[facility] [address] [place], [place], [phone](124) CO2 [Moles/Vol] 27.0 mmol/L Normal 21.0-32.0 [facility] Comment on above: Performed By: #### L 506.1000, L500.4050, L500.4100, L509.1000, L100.0100, L503.6550, L501.5200, L503.0105, L3300.9900 ####[facility] [address] [place], [place], [phone](734) Creatinine [Mass/Vol] 0.69 mg/dL Normal 0.55-1.02 [facility] Comment on above: Result Comment: The validity of the calculated GFR GFRAA in patients over 70 years has not been determined. Clinical correlation is essential. Performed By: #### L 506.1000, L500.4050, L500.4100, L509.1000, L100.0100, L503.6550, L501.5200, L503.0105, L3300.9900 ####[facility] [address] [place], [place], [address] EST GFR - AA 113 mL/min Normal >60 [facility] Comment on above: Result Comment: Afri can English GFR Calc Performed By: #### L 506.1000, L500.4050, L500.4100, L509.1000, L100.0100, L503.6550, L501.5200, L503.0105, L3300.9900 ####[facility] [address] [place], [place], [id number] GAP 7 Normal 5-15 [facility] Comment on above: Performed By: #### L 506.1000, L500.4050, L500.4100, L509.1000, L100.0100, L503.6550, L501.5200, L503.0105, L3300.9900 ####[facility] [address] [place], [place], [phone](048) GFR/1.73 sq M.predicted among non-blacks MDRD (S/P/Bld) [Vol rate/Area] 94 mL/min/{1.73_m2} Normal >60 [facility] Comment on above: Result Comment: Non- GFR Calc Performed By: #### L 506.1000, L500.4050, L500.4100, L509.1000, L100.0100, L503.6550, L501.5200, L503.0105, L3300.9900 ####[facility] [address] [place], [place], [phone](372) Globulin (S) [Mass/Vol] 3.2 g/dL Normal 2.2-4.2 [facility] Comment on above: Performed By: #### L 506.1000, L500.4050, L500.4100, L509.1000, L100.0100, L503.6550, L501.5200, L503.0105, L3300.9900 ####[facility] [address] [place], [place], [phone](187) Glucose [Mass/Vol] 106 mg/dL Normal 74-106 [facility] Comment on above: Result Comment: Fast ing Glucose result from 100 to 125 mg/dL suggests IMPAIRED HOMEOSTASIS per A.D.A. criteria. Performed By: #### L 506.1000, L500.4050, L500.4100, L509.1000, L100.0100, L503.6550, L501.5200, L503.0105, L3300.9900 ####[facility] [address] [place], [address](194) Potassium [Moles/Vol] 3.8 mmol/L Normal 3.5-5.1 [facility] Comment on above: Performed By: #### L 506.1000, L500.4050, L500.4100, L509.1000, L100.0100, L503.6550, L501.5200, L503.0105, L3300.9900 ####[facility] [address] [place], [place], [id number] Sodium [Moles/Vol] 141 mmol/L Normal 136-145 [facility] Comment on above: Performed By: #### L 506.1000, L500.4050, L500.4100, L509.1000, L100.0100, L503.6550, L501.5200, L503.0105, L3300.9900 ####[facility] [address] [place], [place], [id number] T PROT 6.6 g/dL Normal 6.4-8.2 [facility] Comment on above: Performed By: #### L 506.1000, L500.4050, L500.4100, L509.1000, L100.0100, L503.6550, L501.5200, L503.0105, L3300.9900 ####[facility] [address] [place], [place], [id number] Urea nitrogen [Mass/Vol] 15 mg/dL Normal 7-18 [facility] Comment on above: Performed By: #### L 506.1000, L500.4050, L500.4100, L509.1000, L100.0100, L503.6550, L501.5200, L503.0105, L3300.9900 ####[facility] [address] [place], [place], [id number] Ferritinon 10-16-2023 Ferritin [Mass/Vol] 89 ng/mL Normal 8-252 [facility] Comment on above: Performed By: #### L 506.1000, L500.4050, L500.4100, L509.1000, L100.0100, L503.6550, L501.5200, L503.0105, L3300.9900 ####[facility] [address], [address] Lipid Profileon 10-16-2023 Cholesterol [Mass/Vol] 130 mg/dL Normal 200 [facility] Comment on above: Result Comment: <200 mg/dL Desirable 200-240 mg/dL Borderline >240 mg/dL High Risk Performed By: #### L 506.1000, L500.4050, L500.4100, L509.1000, L100.0100, L503.6550, L501.5200, L503.0105, L3300.9900 ####[facility] [address] [place], [address] Cholesterol in HDL [Mass/Vol] 39 mg/dL Low [facility] Comment on above: Result Comment: The drugs N-Acetylcysteine and Metamizole may falsely depress this assay. Reference Range HDL <40 mg/dL Low HDL Cholesterol HDL >or= 60 mg/dL High HDL Cholesterol Performed By: #### L 506.1000, L500.4050, L500.4100, L509.1000, L100.0100, L503.6550, L501.5200, L503.0105, L3300.9900 ####[facility] [address] [place], [address] Cholesterol in LDL [Mass/Vol] 46 mg/dL Normal 0-130 [facility] Comment on above: Performed By: #### L 506.1000, L500.4050, L500.4100, L509.1000, L100.0100, L503.6550, L501.5200, L503.0105, L3300.9900 ####[facility] [address], [address] Cholesterol in VLDL [Mass/Vol] 45 mg/dL High 5-40 [facility] Comment on above: Performed By: #### L 506.1000, L500.4050, L500.4100, L509.1000, L100.0100, L503.6550, L501.5200, L503.0105, L3300.9900 ####[facility] [address] [place], [place], [id number] Triglyceride [Mass/Vol] 223 mg/dL High [facility] Comment on above: Result Comment: The drugs N-Acetylcysteine and Metamizole may falsely depress this assay. Serum Triglycerides Reference Interval Normal <150 mg/dL Borderline high 150 - 199 mg/dL High 200 - 499 mg/dL Very High > or = 500 mg/dL Performed By: #### L 506.1000, L500.4050, L500.4100, L509.1000, L100.0100, L503.6550, L501.5200, L503.0105, L3300.9900 ####[facility] [address] [place], [place], [id number] Magnesiumon 10-16-2023 Magnesium [Mass/Vol] 2.3 mg/dL Normal 1.6-2.6 [facility] Comment on above: Performed By: #### L 506.1000, L500.4050, L500.4100, L509.1000, L100.0100, L503.6550, L501.5200, L503.0105, L3300.9900 ####[facility] [address] [place], [place], [phone] PTHINon 10-16-2023 PTH 50.4 pg/mL Normal 18.4-80.1 [facility] Comment on above: Performed By: #### L 506.1000, L500.4050, L500.4100, L509.1000, L100.0100, L503.6550, L501.5200, L503.0105, L3300.9900 #### [facility] [address] [place], [address] Urgent Care Visit Reporton 0 10-16-2023 Urgent Care Visit Report [facility] [address], [address] [place] [address] OFFICE VISIT Date of Service: 10/16/23 MR#: [id number] Acct: [id number] Name: JEREMIAH LATIF Rep #: [id number] : 1970 Provider: DANISH Mccullough Age/Sex: 53/F Location[place] [facility] Status: Signed Intake Vital Signs 10/07/23 16:38 10/16/23 12:22 Height 5 ft 4 in 5 ft 5 in Weight: 218 lb BMI 36.2 BP 120/80 Blood Pressure Location Lt brachial Position Sitting Respiration 16 Pulse 68 Pulse Source Monitor Temp 98.4 F Temp Source Temporal Pulse Oximetry (%) 98 Oxygen Delivery Method room air Intake Visit 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 Chief Complaint: SUTURE REMOVAL 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 Accompanied by: Self Is patient in pain?: No Allergies No Known Allergies Allergy (Verified 10/16/23 12:24) Medications ???Medication ???Instructions ???Recorded ???Confirmed ???Type Calcium Citrate 800 mg PO .QID 10/04/23 10/16/23 History Catapleat B 3 tab PO BID 10/04/23 10/16/23 History Collagen 1 tab PO QHS 10/04/23 10/16/23 History Fibra Syntropy 1 tab PO BID 10/04/23 10/16/23 History [place] Fortifier 1 tab PO BID 10/04/23 10/16/23 History Glutomine Complex See Rx Instructions PO BID 10/04/23 10/16/23 History Hypo Zymase 2 tab PO TIDWMEAL 10/04/23 10/16/23 History Lactobacillus acidophilus 1,000 mmu cells PO DAILY 10/04/23 10/16/23 History (Acidophilus capsule) Methyl B12 8 spray intranasal DAILY 10/04/23 10/16/23 History Tuna Omeca 1 tab PO DAILY 10/04/23 10/16/23 History Vitamin C +Iron 1 tab PO DAILY 10/04/23 10/16/23 History acetylcysteine 600 mg capsule (NAC) 600 mg PO DAILY 10/04/23 10/16/23 History boron 6 mg tablet 12 mg PO BID 10/04/23 10/16/23 History cholecalciferol (vitamin D3) 1,250 1,250 mcg PO 3XW 10/04/23 10/16/23 History mcg (50,000 unit) capsule magnesium citrate 100 mg capsule 100 mg PO BID 10/04/23 10/16/23 History omeprazole 40 mg capsule,delayed 40 mg PO DAILY PRN GERD 10/04/23 10/16/23 History release vit D3 50 mcg-vitamin K1 500 1 cap PO DAILY 10/04/23 10/16/23 History mcg-MK4 1,500 mcg-MK7 180 mcg capsule vitamin A 2,400 mcg capsule 2,400 mcg PO DAILY 10/04/23 10/16/23 History vitamin E mixed 400 unit tablet 400 unit PO DAILY 10/04/23 10/16/23 History zinc gluconate 50 mg tablet 50 mg PO DAILY 10/04/23 10/16/23 History cephalexin 500 mg capsule 500 mg PO TID #15 caps 10/07/23 10/16/23 Rx PFSH Medical History (Updated 10/16/23 @ 12:52 by Sumit PENG, PA) Laceration of left middle finger Hypertriglyceridemia Malabsorption Osteoporosis History of stress test Normal stress echocardiogram Wears glasses Back pain Gastric reflux Former smoker Shortness of breath on exertion COVID-19 BPD-DS Surgical History Hx of tubal ligation Status post biliopancreatic diversion with duodenal switch History of appendectomy History of Family History Father Kidney disease Hypertension Heart disease Diabetes Mother COPD (chronic obstructive pulmonary disease) Social History Smoking Status: Former smoker pack-years: 12 Tobacco: How many years used: 12 how long ago did patient quit smokin years ago alcohol intake: current alcohol intake frequency: holidays/special occasions only substance use type: does not use HPI HPI Chief Complaint: SUTURE REMOVAL LT MIDDLE FINGER Details: JEREMIAH KENTADILIA, is a 53 F who presents to the office today for initial evaluation at the now clinic status post left middle finger dorsal DIPJ laceration of approximately 1 cm in length suffered in her kitchen at home on 10/07/2023 and reported [facility] ED same day where x 2 SI sutures were placed and released the same day. This date of injury, patient notes compliance with wound care as instructed noting the proximal suture fell out with distal suture still intact and requesting to have removed at this time. No complaints of fever, chills, sweats, localized discharge though trace erythema and point tender to palpation still appreciated. No loss of sensation or strength or function at injury site or distal to. No other associated symptoms and no other alleviating/aggravating factors. ROS Const Constitutional: No other (As above) Exam Const General: cooperative, healthy appearing and no acute distress Orientation: alert and awake Resp Effort Inspection: normal respiratory effort and able to speak in complete sentences Cardio Rate: regular rate Pulses: radial pulses present Skin General: no rashes or lesions noted Other: Pro (more content not included)... Normal [facility] Vitamin B12on 10-16-2023 Cobalamin (Vitamin B12) [Mass/Vol] 1029 pg/mL High 211-911 [facility] Comment on above: Performed By: #### L 506.1000, L500.4050, L500.4100, L509.1000, L100.0100, L503.6550, L501.5200, L503.0105, L3300.9900 ####[facility] [address] [place], [place], [phone] Vitamin D,25 Hydroxyon 10-15 Vitamin D 25-OH 36.7 ng/mL Normal [facility] Comment on above: Result Comment: Sylvia min D 25(OH) Status Range Deficiency <20 ng/mL (50nmol/L) Insufficiency 20 - 30 ng/mL (50 - 75 nmol/L) Sufficiency 30 - 100 ng/mL (75 - 250 nmol/L) Toxicity >100 ng/mL (>250 nmol/L) Performed By: #### L 506.1000, L500.4050, L500.4100, L509.1000, L100.0100, L503.6550, L501.5200, L503.0105, L3300.9900 ####[facility] [address] [place], [address] Emergency Department Summary on 10-07-2023 Emergency Department Summary [facility] Medical Records Department [address] [place] [address] Emergency Department Summary 10/07/23 MR#: [id number] Acct: [id number] Name: JEREMIAH LATIF Rep #: [id number] : 1970 53 From: Tessa Gruber DO PCP: Dr. Andreea Zuluaga MD Status:DEP ER Location: ED HPI History of Present Illness Chief Complaint: Laceration Narrative Narrative: Patient presenting today with a laceration to the dorsal aspect of her left third finger that she got this afternoon while using a knife to prepare dinner. Her last tetanus was 7 years ago. She is right-handed. [facility] Medical History Hypertriglyceridemia Malabsorption Osteoporosis History of stress test Normal stress echocardiogram Wears glasses Back pain Gastric reflux Former smoker Shortness of breath on exertion COVID-19 BPD-DS Home Medications ???Medication ???Instructions ???Recorded ???Last Taken ???Type Calcium Citrate 800 mg PO .QID 10/04/23 Unknown History Catapleat B 3 tab PO BID 10/04/23 Unknown History Collagen 1 tab PO QHS 10/04/23 Unknown History Fibra Syntropy 1 tab PO BID 10/04/23 Unknown History [place] Fortifier 1 tab PO BID 10/04/23 Unknown History Glutomine Complex See Rx Instructions PO BID 10/04/23 Unknown History Hypo Zymase 2 tab PO TIDWMEAL 10/04/23 Unknown History Lactobacillus acidophilus 1,000 mmu cells PO DAILY 10/04/23 Unknown History (Acidophilus capsule) Methyl B12 8 spray intranasal DAILY 10/04/23 Unknown History Tuna Omeca 1 tab PO DAILY 10/04/23 Unknown History Vitamin C +Iron 1 tab PO DAILY 10/04/23 Unknown History acetylcysteine 600 mg capsule (NAC) 600 mg PO DAILY 10/04/23 Unknown History boron 6 mg tablet 12 mg PO BID 10/04/23 Unknown History cholecalciferol (vitamin D3) 1,250 1,250 mcg PO 3XW 10/04/23 Unknown History mcg (50,000 unit) capsule magnesium citrate 100 mg capsule 100 mg PO BID 10/04/23 Unknown History omeprazole 40 mg capsule,delayed 40 mg PO DAILY PRN GERD 10/04/23 Unknown History release vit D3 50 mcg-vitamin K1 500 1 cap PO DAILY 10/04/23 Unknown History mcg-MK4 1,500 mcg-MK7 180 mcg capsule vitamin A 2,400 mcg capsule 2,400 mcg PO DAILY 10/04/23 Unknown History vitamin E mixed 400 unit tablet 400 unit PO DAILY 10/04/23 Unknown History zinc gluconate 50 mg tablet 50 mg PO DAILY 10/04/23 Unknown History cephalexin 500 mg capsule 500 mg PO TID #15 caps 10/07/23 Unknown Rx Allergy/AdvReac Type Severity Reaction Status Date / Time No Known Allergies Allergy Verified 10/07/23 16:37 Family History Father Kidney disease Hypertension Heart disease Diabetes Mother COPD (chronic obstructive pulmonary disease) Surgical History Hx of tubal ligation Status post biliopancreatic diversion with duodenal switch History of appendectomy History of Social History Smoking Status: Former smoker pack-years: 12 Tobacco: How many years used: 12 how long ago did patient quit smokin years ago alcohol intake: current alcohol intake frequency: holidays/special occasions only substance use type: does not use ROS ROS ED Constitutional Constitutional ED: Denies chills or fever(s) Cardiovascular Cardiovascular: Denies chest pain Respiratory/Chest Respiratory/Chest: Denies dyspnea Gastrointestinal Gastrointestinal: Denies abdominal pain, nausea or vomiting Musculoskeletal Musculoskeletal: Denies arthralgias or myalgias Integumentary Reports laceration Neurologic Neurologic: Denies paresthesias EXAM Physical Exam Const Vital Signs: 10/07/23 16:38 10/07/23 18:22 Temperature 98.2 F 98.2 F Temperature Source Temporal Pulse Rate 68 68 Respiratory Rate 16 16 Blood Pressure 109/62 109/62 Blood Pressure Mean 77 77 Pulse Ox 97 97 Oxygen Delivery Method Room Air Positive well nourished, well developed and no apparent distress General Appearance ED: well developed HEENT Reports normocephalic and head/scalp atraumatic Mouth ED: Yes moist mucous membranes normal Eyes PERRL and EOMs intact bilaterally Neck full ROM and supple Chest Wall inspection of chest normal Resp normal respiratory effort and clear to auscultation bilaterally Cardio regular rate and regular rhythm Back/Spine normal ROM and normal to inspection Extremity full ROM Extremity Narrative: Full flexion extension at the MCP, PIP, DIP joints of the right hand Neuro oriented x3, CN's II-XII intact bilaterally, moves all extremities, no focal motor deficits and no sensory deficits noted Sens (more content not included)... Normal [facility] Finger(s) Min 2 Viewson 09-17-2023 Finger(s) Min 2 Views [facility] [address] [place] [address] Finger(s) Min 2 Views MR#: [id number] Acct: [id number] Name: JEREMIAH LATIF Rep #: [id number] : 1970 F 53 From: Andreea mireles MD PCP: Dr. Andreea Zuluaga MD Status: REG ER Study: Finger(s) Min 2 Views Date of Exam: 10/07/23 Exam# [id number] Ordering Dr: Tierra Gonsalez [id number] INDICATION: L third finger laceration EXAMINATION/TECHNIQUE: X-RAY - LEFT HAND XR Fingers Min 2 Views COMPARISON: None. FINDINGS: No acute fracture or malalignment. No blastic or lytic lesions. No degenerative changes are seen. The soft tissues are unremarkable. RAD/Finger(s) Min 2 Views IMPRESSION: No acute radiographic abnormalities. Electronically Signed: Andreea Melara MD at 18:17 EDT , CC: Dr. Andreea Zuluaga MD; DANISH Ellison [employer] Resource Planning Consultant: Signed Normal [facility] Endocrinology Visit Reporton 10-04-2023 Endocrinology Visit Report [facility] [address] [place] [address] OFFICE VISIT Date of Service: 10/04/23 MR#: [id number] Acct: [id number] Name: JEREMIAH LATIF Rep #: [id number] : 1970 Provider: Rosey Zambrano Age/Sex: 53/F [place] [facility] [place]: Signed Intake Vital Signs 02/01/23 15:51 10/04/23 08:02 Height 5 ft 4.5 in 5 ft 4.5 in Weight: 218 lb BMI 36.8 BP 107/77 Blood Pressure Location Lt brachial Position Sitting Pulse 68 Pulse Source Monitor Pulse Oximetry (%) 97 Oxygen Delivery Method room air Intake Visit Reasons: Osteoporosis Fish Warden Required: No Accompanied by: Self Is patient in pain?: Yes (Feet ) Pain scale (1-10): 3 Allergies No Known Allergies Allergy (Verified 10/04/23 08:05) Medications ???Medication ???Instructions ???Recorded ???Confirmed ???Type Calcium Citrate 800 mg PO .QID 10/04/23 History Catapleat B 3 tab PO BID 10/04/23 History Collagen 1 tab PO QHS 10/04/23 History Fibra Syntropy 1 tab PO BID 10/04/23 History [place] Fortifier 1 tab PO BID 10/04/23 History Glutomine Complex See Rx Instructions PO BID 10/04/23 History Hypo Zymase 2 tab PO TIDWMEAL 10/04/23 History Lactobacillus acidophilus 1,000 mmu cells PO DAILY 10/04/23 10/04/23 History (Acidophilus capsule) Methyl B12 8 spray intranasal DAILY 10/04/23 History Tuna [place] 1 tab PO DAILY 10/04/23 History Vitamin C +Iron 1 tab PO DAILY 10/04/23 History acetylcysteine 600 mg capsule (NAC) 600 mg PO DAILY 10/04/23 10/04/23 History boron 6 mg tablet 12 mg PO BID 10/04/23 10/04/23 History cholecalciferol (vitamin D3) 1,250 1,250 mcg PO 3XW 10/04/23 10/04/23 History mcg (50,000 unit) capsule magnesium citrate 100 mg capsule 100 mg PO BID 10/04/23 10/04/23 History omeprazole 40 mg capsule,delayed 40 mg PO DAILY PRN GERD 10/04/23 10/04/23 History release vit D3 50 mcg-vitamin K1 500 1 cap PO DAILY 10/04/23 10/04/23 History mcg-MK4 1,500 mcg-MK7 180 mcg capsule vitamin A 2,400 mcg capsule 2,400 mcg PO DAILY 10/04/23 10/04/23 History vitamin E mixed 400 unit tablet 400 unit PO DAILY 10/04/23 10/04/23 History zinc gluconate 50 mg tablet 50 mg PO DAILY 10/04/23 10/04/23 History PFSH Medical History Hypertriglyceridemia Malabsorption Osteoporosis History of stress test Normal stress echocardiogram Wears glasses Back pain Gastric reflux Former smoker Shortness of breath on exertion COVID-19 BPD-DS Surgical History Hx of tubal ligation Status post biliopancreatic diversion with duodenal switch History of appendectomy History of Family History Father Kidney disease Hypertension Heart disease Diabetes Mother COPD (chronic obstructive pulmonary disease) Social History Smoking Status: Former smoker pack-years: 12 Tobacco: How many years used: 12 how long ago did patient quit smokin years ago alcohol intake: current alcohol intake frequency: holidays/special occasions only substance use type: does not use HPI HPI JEREMIAH LATIF, is a 53 F who presents to the office today for evaluation and management of osteoporosis. She is post-menopausal. No fractures (pinky toe). Large FMH of osteoporosis, grandmother after a hip fracture. Remote tobacco use. T-score in the femoral neck is -3.2. She has history of ileal bypass surgery and chronic nutrition malabsorption. She is taking 3.2 g of calcium per day and 150,000 IU of vitamin D 2 per week. She has not the best diet. She has FMH of DM2. Current Symptoms: presents with heartburn and nausea; denies unsteady gait/balance Risk Factors: has history of tobacco use and has history of glucocorticoids Osteoporosis/Bone Results: Calcium Level 8.5 mg/dL (8.5-10.1) Albumin 3.4 g/dL (3.2-5.0) Phosphorus Level 3.0 mg/dL (2.5-4.9) Parathyroid Hormone (Intact) 47.4 pg/mL (18.4-80.1) Vitamin D 25-Hydroxy 36.6 ng/mL ROS Const Constitutional: No anorexia, excessive sweating, malaise, night sweats, weight change or change in appetite Eyes Eyes: No change in vision ENT ENT: Positive for neck pain; No hearing loss, nasal congestion or difficulty swallowing Cardio Cardiology: No chest pain at rest, chest pain with exertion, excessive sweating or shortness of breath Musc Musculoskeletal: Positive for joint pain, myalgias and neck pain; No abnormal gait, numbness or tingling Neuro Neurology: No abnormal gait, unsteady gait/balance, memory loss, numbness or tingling Psych Psychiatric: No change in appetite (more content not included)... Normal [facility] Basophil percentageOrdered B y: Blake Zuluaga on 01-22-2023 Basophil percentage 3.0 mg/dL 2.5-4.9 [facility] Chloride [Moles/Vol] 108 mmol/L 98-107 [facility] Cholesterol [Mass/Vol] 134 mg/dL <200 [facility] Comment on above: <200 mg/dL Desirable 200-240 mg/dL Borderline >240 mg/dL High Risk Glucose [Mass/Vol] 128 mg/dL 74-106 [facility] Comment on above: Fasting Glucose resu lt greater than or equal to 126 mg/dL suggests DIABETES MELLITUS per A.D.A. criteria. Potassium [Moles/Vol] 3.7 mmol/L 3.5-5.1 [facility] Sodium [Moles/Vol] 141 mmol/L 136-145 [facility] Triglyceride [Mass/Vol] 263 mg/dL <199 [facility] Comment on above: The drugs N-Acetylcy steine and Metamizole may falsely depress this assay.Serum Triglycerides Reference Interval Normal <150 mg/dL Borderline high 150 - 199 mg/dL High 200 - 499 mg/dL Very High > or = 500 mg/dL Laboratory - Chemistry and C hemistry - challengeOrdered By: Blake Zuluaga on 01-22-2023 CO2 [Moles/Vol] 28.0 mmol/L 21.0-32.0 [facility] Magnesium [Mass/Vol] 2.2 mg/dL 1.6-2.6 [facility] Urea nitrogen/Creatinine [Mass ratio] 15.5 mg/mg 10-20 [facility] No Panel InformationOrdered By: Blake Zuluaga on 01-22-2023 Ionized Calcium 4.81 mg/dL 4.36-5.20 [facility] Estimated GFR (MDRD) Amer 123 mL/min >60 [facility] Comment on above: GFR Calc Estimated GFR (MDRD) Non-Af Amer 102 mL/min >60 [facility] Comment on above: Non- GFR Calc Parathyroid Hormone (Intact) 47.4 pg/mL 18.4-80.1 [facility] Thyroid Stimulating Hormone (TSH) 1.24 uIU/mL 0.358-3.74 [facility] Vitamin D 25-Hydroxy 36.6 ng/mL [facility] Comment on above: Vitamin D 25(OH) Sta tus Range Deficiency <20 ng/mL (50nmol/L) Insufficiency 20 - 30 ng/mL (50 - 75 nmol/L) Sufficiency 30 - 100 ng/mL (75 - 250 nmol/L) Toxicity >100 ng/mL (>250 nmol/L) Serum or plasma calcium teresa urement (mass/volume)Ordered By: Blake Zuluaga on 01-22-2023 Calcium [Mass/Vol] 8.5 mg/dL 8.5-10.1 [facility] Serum or plasma cholesterol in HDL measurement (mass/volume)Ordered By: Blake Zuluaga on 01-22-2023 Cholesterol in HDL [Mass/Vol] 37 mg/dL >40 [facility] Comment on above: The drugs N-Acetylcy steine and Metamizole may falsely depress this assay. Reference Range HDL <40 mg/dL Low HDL Cholesterol HDL >or= 60 mg/dL High HDL Cholesterol Serum or plasma cholesterol in VLDL measurement (mass/volume)Ordered By: Blake Zuluaga on 01-22-2023 Cholesterol in VLDL [Mass/Vol] 53 mg/dL 5-40 [facility] Serum or plasma creatinine m easurement (mass/volume)Ordered By: Blake Zuluaga on 01-22-2023 Creatinine [Mass/Vol] 0.64 mg/dL 0.55-1.02 [facility] Comment on above: The validity of the calculated GFR & GFRAA in patients over 70 years has not been determined. Clinical correlation is essential. Serum or plasma low density lipoprotein (LDL) cholesterol measurement (mass/volume)Ordered By: Blake Zuluaga on 01-22-2023 Cholesterol in LDL [Mass/Vol] 44 mg/dL 0-130 [facility] Serum or plasma urea nitroge n measurement (mass/volume)Ordered By: Blake Zuluaga on 01-22-2023 Urea nitrogen [Mass/Vol] 10 mg/dL 7-18 [facility] Thin prep Papanicolaou smear with manual screeningOrdered By: Blake Zuluaga on 01-22-2023 Thin prep Papanicolaou smear with manual screening 5 5-15 [facility] Whole blood hemoglobin A1c/t otal hemoglobin ratio (mass fraction)Ordered By: Blake Zuluaga on 01-22-2023 HbA1c (Bld) [Mass fraction] 5.4 % 3.8-5.6 [facility] Comment on above: Normal < 5.7 % Predi abetic 5.7 - 6.4 % Diabetic >or= 6.5 % Please note range changes. Cervical or vagninal specime n microscopic examination by cytology stain (reported asOrdered By: Dr. Pablo on 07-04-2022 Cytology report Cyto stain Doc (Cvx/Vag) Comment . [facility] Comment on above: The Pap smear is a s creening test designed to aid in thedetection of premalignant and malignant conditions of theuterine cervix. It is not a diagnostic procedure andshould not be used as the sole means of detecting cervicalcancer. Both false-positive and false-negative reports dooccur. Detection in cervical specim en of any of human papilloma virus (HPV) 16, 18, 31, 33,Ordered By: Dr. Pablo on 07-04-2022 HPV 16+18+31+33+35+39+45 +51+52+56+58+59+66+6 8 DNA Probe+sig amp Ql (Cvx) Negative Negative [facility] Comment on above: This nucleic acid am plification test detects fourteen high- risk HPV types (16,18,31,33,35,39,45,51,52,56,58,59,66,68)without differentiation. Laboratory - CytologyOrdered By: Dr. Pablo on 07-04-2022 [employer] Parts Fabricator Trimmer Cyto stain Nom (Cvx/Vag) [ID] Comment . [facility] Comment on above: Riya siegel, Cottage Supervisor (ASCP) Laboratory - Miscellaneous t estsOrdered By: Dr. Pablo on 07-04-2022 Service comment (Unsp spec) [Interp] Comment . [facility] Comment on above: This liquid based Th inPrep(R) pap test was screened withthe use of an image guided system. Service comment (Unsp spec) [Interp] . . [facility] Liquid-based cerv Pap + CT/G C by TOM w reflex to high-risk HPV for ASCUSOrdered By: Dr. Pablo on 07-04-2022 Cytology report Cyto stain.thin prep Doc (Cvx/Vag) Comment . [facility] Comment on above: Criteria not met, HP V Genotype not performed.Performed at: - [address] [id number] Director: Tatyana Mckenzie MD, Phone: [phone] at: =[facility] [address] [id number] Director: Tatyana Mckenzie MD, Phone: [phone] No Panel InformationOrdered By: Dr. Pablo on 07-04-2022 Pathology report final diagnosis Narrative Comment . [facility] Comment on above: NEGATIVE FOR INTRAEP ITHELIAL LESION OR MALIGNANCY. Basophil percentageOrdered B y: Dr. Zuluaga on 06-17-2022 Bilirubin [Mass/Vol] 0.30 mg/dL 0.20-1.00 [facility] Comment on above: For patients on eltr ombopag therapy, use of Dimension [place] TBIL is not recommended. Chloride [Moles/Vol] 108 mmol/L 98-107 [facility] Cholesterol [Mass/Vol] 154 mg/dL <200 [facility] Comment on above: <200 mg/dL Desirable 200-240 mg/dL Borderline >240 mg/dL High Risk Glucose [Mass/Vol] 120 mg/dL 74-106 [facility] Comment on above: Fasting Glucose resu lt from 100 to 125 mg/dL suggests IMPAIRED HOMEOSTASIS per A.D.A. criteria. Potassium [Moles/Vol] 4.1 mmol/L 3.5-5.1 [facility] Protein [Mass/Vol] 6.5 g/dL 6.4-8.2 [facility] Sodium [Moles/Vol] 141 mmol/L 136-145 [facility] Triglyceride [Mass/Vol] 241 mg/dL <199 [facility] Comment on above: The drugs N-Acetylcy steine and Metamizole may falsely depress this assay.Serum Triglycerides Reference Interval Normal <150 mg/dL Borderline high 150 - 199 mg/dL High 200 - 499 mg/dL Very High > or = 500 mg/dL WBC (Bld) [#/Vol] 9.7 10*3/uL 4.4-11.0 [facility] Blood erythrocytes count (nu mber/volume)Ordered By: Dr. Zuluaga on 06-17-2022 RBC (Bld) [#/Vol] 4.86 10*6/uL 4.2-5.4 [facility] Blood hemoglobin measurement (mass/volume)Ordered By: Dr. Zuluaga on 06-17-2022 Hemoglobin (Bld) [Mass/Vol] 13.1 g/dL 12.0-15.0 [facility] Blood platelet mean volumeOr dered By: Dr. Zuluaga on 06-17-2022 Platelet mean volume (Bld) [Entitic vol] 10.5 fL 6.2-12.0 [facility] Determination of erythrocyte mean corpuscular volume (MCV)Ordered By: Dr. Zuluaga on 06-17-2022 MCV (RBC) [Entitic vol] 82.9 fL 81-99 [facility] Hematocrit Auto (Bld) [Volum e fraction]Ordered By: Dr. Zuluaga on 06-17-2022 Hematocrit (Bld) [Volume fraction] 40.3 % 37-47 [facility] Iron measurement (mass/mass) Ordered By: Dr. Zuluaga on 06-17-2022 Iron (Unsp spec) [Mass/Mass] 45 ug/dL 50-170 [facility] - Chemistry and C hemistry - challengeOrdered By: Dr. Zuluaga on 06-17-2022 ALP [Catalytic activity/Vol] 107 U/L 45-117 [facility] ALT [Catalytic activity/Vol] 25 U/L 13-56 [facility] CO2 [Moles/Vol] 27.0 mmol/L 21.0-32.0 [facility] Cobalamin (Vitamin B12) [Mass/Vol] 294 pg/mL 211-911 [facility] Globulin (S) [Mass/Vol] 3.1 g/dL 2.2-4.2 [facility] Urea nitrogen/Creatinine [Mass ratio] 23.4 mg/mg 10-20 [facility] - Hematology and Cell countsOrdered By: Dr. Zuluaga on 06-17-2022 Erythrocyte distribution width (RBC) [Entitic vol] 37.9 fL 35.1-43.9 [facility] Erythrocyte distribution width (RBC) [Ratio] 12.6 % 11.6-14.6 [facility] MCH (RBC) [Entitic mass] 27.0 pg 27.0-32.0 [facility] MCHC Auto (RBC) [Mass/Vol]Or dered By: Dr. Zuluaga on 06-17-2022 MCHC (RBC) [Mass/Vol] 32.5 g/dL 32-36 [facility] No Panel InformationOrdered By: Dr. Zuluaga on 06-17-2022 Anti-Nuclear Antibody Screen Negative Negative [facility] Comment on above: Performed at: [employer] [address] [id number] Director: Jesse Mora PhD, Phone: [phone] Estimated GFR (MDRD) Amer 124 mL/min >60 [facility] Comment on above: GFR Calc Estimated GFR (MDRD) Non-Af Amer 103 mL/min >60 [facility] Comment on above: Non- GFR Calc Parathyroid Hormone (Intact) 62.6 pg/mL 18.4-80.1 [facility] Thyroid Stimulating Hormone (TSH) 2.28 uIU/mL 0.358-3.74 [facility] Vitamin D 25-Hydroxy 36.8 ng/mL [facility] Comment on above: Vitamin D 25(OH) Sta tus Range Deficiency <20 ng/mL (50nmol/L) Insufficiency 20 - 30 ng/mL (50 - 75 nmol/L) Sufficiency 30 - 100 ng/mL (75 - 250 nmol/L) Toxicity >100 ng/mL (>250 nmol/L) Platelets bldOrdered By: Dr. Zuluaga on 06-17-2022 Platelets (Bld) [#/Vol] 230 10*3/uL 150-450 [facility] Serum or plasma C reactive p rotein measurement (mass/volume)Ordered By: Dr. Zuluaga on 06-17-2022 CRP [Mass/Vol] mg/L 0.0-3.0 [facility] Comment on above: C-Reactive Protein ( CRP) provides useful information for thediagnosis, therapy and monitoring of inflammatory processesand associated diseases. For the evaluation of Relative Riskfor Cardiovascular Disease, a High Sensitivity CRP (HSCRP)should be ordered. Serum or plasma albumin teresa urement (mass/volume)Ordered By: Dr. Zuluaga on 06-17-2022 Albumin [Mass/Vol] 3.4 g/dL 3.2-5.0 [facility] Serum or plasma albumin/glob ulin mass ratioOrdered By: Dr. Zuluaga on 06-17-2022 Albumin/Globulin [Mass ratio] 1.1 {ratio} 0.9-2.4 [facility] Serum or plasma calcium teresa urement (mass/volume)Ordered By: Dr. Zuluaga on 06-17-2022 Calcium [Mass/Vol] 8.7 mg/dL 8.5-10.1 [facility] Serum or plasma cholesterol in HDL measurement (mass/volume)Ordered By: Dr. Zuluaga on 06-17-2022 Cholesterol in HDL [Mass/Vol] 37 mg/dL >40 [facility] Comment on above: The drugs N-Acetylcy steine and Metamizole may falsely depress this assay. Reference Range HDL <40 mg/dL Low HDL Cholesterol HDL >or= 60 mg/dL High HDL Cholesterol Serum or plasma cholesterol in VLDL measurement (mass/volume)Ordered By: Dr. Zuluaga on 06-17-2022 Cholesterol in VLDL [Mass/Vol] 48 mg/dL 5-40 [facility] Serum or plasma creatinine m easurement (mass/volume)Ordered By: Dr. Zuluaga on 06-17-2022 Creatinine [Mass/Vol] 0.64 mg/dL 0.55-1.02 [facility] Comment on above: The validity of the calculated GFR & GFRAA in patients over 70 years has not been determined. Clinical correlation is essential. Serum or plasma ferritin praveen surement (mass/volume)Ordered By: Dr. Zuluaga on 06-17-2022 Ferritin [Mass/Vol] 70 ng/mL 8-252 [facility] Serum or plasma low density lipoprotein (LDL) cholesterol measurement (mass/volume)Ordered By: Dr. Zuluaga on 06-17-2022 Cholesterol in LDL [Mass/Vol] 69 mg/dL 0-130 [facility] Serum or plasma retinol teresa urement (mass/volume)Ordered By: Dr. Zuluaga on 06-17-2022 Retinol [Mass/Vol] 40.8 ug/dL 20.1-62.0 [facility] Comment on above: Reference intervals for vitamin A determined from [facility] studies. Individuals with vitamin A less than 20ug/dL are considered vitamin A deficient and those withserum concentrations less than 10 ug/dL are consideredseverely deficient.This test was developed and its performance characteristicsdetermined by [employer]. It has not been cleared orapproved by the Food and Drug Administration.Performed at: [address] [id number] Director: Salma Au MD, Phone: [phone] Serum or plasma urea nitroge n measurement (mass/volume)Ordered By: Dr. Zuluaga on 06-17-2022 Urea nitrogen [Mass/Vol] 15 mg/dL 7-18 [facility] Serum rheumatoid factor dete ctionOrdered By: Dr. Zuluaga on 06-17-2022 Rheumatoid factor Ql (S) < 10.0 IU/mL <15 [facility] Thin prep Papanicolaou smear with manual screeningOrdered By: Dr. Zuluaga on 06-17-2022 Thin prep Papanicolaou smear with manual screening 14 U/L 15-37 [facility] Thin prep Papanicolaou smear with manual screening 6 5-15 [facility] - Microbiology an d Antimicrobial susceptibilityon 02-05-2022 SARS-CoV-2 (COVID-19) RNA TOM+probe Ql (Unsp spec) Not detected [facility] Work Phone: No Panel Informationon 02-05 POC Nasal Swab Influenza A,B Not detected [facility] Work Phone: POC Nasal Swab RSV Not detected [facility] Work Phone: No Panel Informationon 08-10 POC SARS CoV-2 Antigen Positive [facility] Work Phone: [facility] Note on 08-14-2017 [facility] Note Normal [facility] [place] Pat Eduon 08-14-2017 [facility] Normal [facility] [place] Patient Summary Documentson 08-14-2017 Patient Summary Documents Normal [facility]) Vital Signs Date Time Vital Sign Value Performing Clinician Faci lity 06-22-2024 11:56-0400 Body temperature 98.1 [degF] Dr. Andreea Zuluaga MD Work Phone: [facility] 06-22-2024 11:56-0400 Diastolic blood pressure 60 mm[Hg] Dr. Andreea Zuluaga MD Work Phone: [facility] 06-22-2024 11:56-0400 Heart rate 77 /min Dr. Andreea Zuluaga MD Work Phone: [facility] 06-22-2024 11:56-0400 Respiratory rate 15 /min Dr. Andreea Zuluaga MD Work Phone: [facility] 06-22-2024 11:56-0400 SaO2% (BldA) [Mass fraction] 99 % Dr. Andreea Zuluaga MD Work Phone: [facility] 06-22-2024 11:56-0400 Systolic blood pressure 110 mm[Hg] Dr. Andreea Zuluaga MD Work Phone: 0(311)688-759491 [place] [address] 05-30-2024 07:25-0400 Body temperature 97.3 [degF] Dr. Andreea Zuluaga MD Work Phone: 4(652)689-451861 [place] [address] 05-30-2024 07:25-0400 Diastolic blood pressure 78 mm[Hg] Dr. Andreea Zuluaga MD Work Phone: 9(095)571-796861 [place] [address] 05-30-2024 07:25-0400 Heart rate 66 /min Dr. Andreea Zuluaga MD Work Phone: 1(458)347-351061 [place] [address] 05-30-2024 07:25-0400 Respiratory rate 16 /min Dr. Andreea Zuluaga MD Work Phone: 8(940)208-681661 [place] [address] 05-30-2024 07:25-0400 SaO2% (BldA) [Mass fraction] 97 % Dr. Andreea Zuluaga MD Work Phone: 7(384)997-523661 [place] [address] 05-30-2024 07:25-0400 Systolic blood pressure 118 mm[Hg] Dr. Andreea Zuluaga MD Work Phone: 2(568)407-195161 [place] [address] 05-30-2024 05:46-0400 Body height 165.[address] Andreea Zuluaga MD Work Phone: 6(197)215-290361 [place] [address] 05-30-2024 05:46-0400 Body mass index (BMI) [Ratio] 35.1 kg/m2 Dr. Andreea Zuluaga MD Work Phone: 0(683)970-636661 [place] [address] 05-30-2024 05:46-0400 Body weight 95.[address] Andreea Zuluaga MD Work Phone: 0(534)176-387461 [place] [address] 03-17-2024 11:29-0500 Body mass index (BMI) [Ratio] 34.7 kg/m2 Dr. Andreea Zuluaga MD Work Phone: 4(504)681-454361 [place] [address] 03-17-2024 11:29-0500 Body weight 94.[address] Andreea Zuluaga MD Work Phone: 1(094)324-301461 [place] [address] 03-17-2024 11:29-0500 Diastolic blood pressure 80 mm[Hg] Dr. Andreea Zuluaga MD Work Phone: [facility] 03-17-2024 11:29-0500 Heart rate 77 /min Dr. Andreea Zuluaga MD Work Phone: [facility] 03-17-2024 11:29-0500 SaO2% (BldA) [Mass fraction] 100 % Dr. Andreea Zuluaga MD Work Phone: [facility] 03-17-2024 11:29-0500 Systolic blood pressure 120 mm[Hg] Dr. Andreea Zuluaga MD Work Phone: [facility] 10-17-2022 15:40-0400 Body temperature 98.2 [degF] Dr. Blake Zuluaga Work Phone: [facility] 10-17-2022 15:40-0400 Diastolic blood pressure 66 mm[Hg] Dr. Blake Zuluaga Work Phone: [facility] 10-17-2022 15:40-0400 Heart rate 61 /min Dr. Blake Zuluaga Work Phone: [facility] 10-17-2022 15:40-0400 Respiratory rate 16 /min Dr. Blake Zuluaga Work Phone: [facility] 10-17-2022 15:40-0400 SaO2% (BldA) [Mass fraction] 100 % Dr. Blake Zuluaga Work Phone: [facility] 10-17-2022 15:40-0400 Systolic blood pressure 124 mm[Hg] Dr. Blake Zuluaga Work Phone: [facility] 10-17-2022 13:57-0400 Body height 163.[address] Blake Zuluaga Work Phone: [facility] 10-17-2022 13:57-0400 Body mass index (BMI) [Ratio] 38.7 kg/m2 Dr. Blake Zuluaga Work Phone: [facility] 10-17-2022 13:57-0400 Body weight [address] Blake Zuluaga Work Phone: [facility] 07-07-2022 08:59-0400 Body height 163.[address] Blake Zuluaga Work Phone: [facility] 07-07-2022 08:59-0400 Body mass index (BMI) [Ratio] 39.5 kg/m2 Dr. Blake Zuluaga Work Phone: [facility] 07-07-2022 08:59-0400 Body weight 106.[address] Blake Zuluaga Work Phone: [facility] 02-05-2022 10:11-0500 Body temperature 97.9 [degF] Dr. Blake Zuluaga Work Phone: [facility] Work Phone: 02-05-2022 10:11-0500 Diastolic blood pressure 88 mm[Hg] Dr. Blake Zuluaga Work Phone: [facility] Work Phone: 02-05-2022 10:11-0500 Heart rate 83 /min Dr. Blake Zuluaga Work Phone: [facility] Work Phone: 02-05-2022 10:11-0500 Respiratory rate 20 /min Dr. Blake Zuluaga Work Phone: [facility] Work Phone: 02-05-2022 10:11-0500 SaO2% (BldA) [Mass fraction] 96 % Dr. Blake Zuluaga Work Phone: [facility] Work Phone: 02-05-2022 10:11-0500 Systolic blood pressure 142 mm[Hg] Dr. Blake Zuluaga Work Phone: [facility] Work Phone: 01-21-2022 08:31-0400 Body temperature 96.7 [degF] Dr. Blake Zuluaga Work Phone: [facility] Work Phone: 01-21-2022 08:31-0400 Diastolic blood pressure 80 mm[Hg] Dr. Blake Zuluaga Work Phone: [facility] Work Phone: 01-21-2022 08:31-0400 Heart rate 76 /min Dr. Blake Zuluaga Work Phone: [facility] Work Phone: 01-21-2022 08:31-0400 Respiratory rate 17 /min Dr. Blake Zuluaga Work Phone: [facility] Work Phone: 01-21-2022 08:31-0400 SaO2% (BldA) [Mass fraction] 98 % Dr. Blake Zuluaga Work Phone: [facility] Work Phone: 01-21-2022 08:31-0400 Systolic blood pressure 118 mm[Hg] Dr. Blake Zuluaga Work Phone: [facility] Work Phone: 08-10-2021 12:08-0400 Body temperature 98 [degF] Dr. Blake Zuluaga Work Phone: [facility] Work Phone: 08-10-2021 12:08-0400 Diastolic blood pressure 78 mm[Hg] Dr. Blake Zuluaga Work Phone: [facility] Work Phone: 08-10-2021 12:08-0400 Heart rate 68 /min Dr. Blake Zuluaga Work Phone: [facility] Work Phone: 08-10-2021 12:08-0400 Respiratory rate 16 /min Dr. Blake Zuluaga Work Phone: [facility] Work Phone: 08-10-2021 12:08-0400 SaO2% (BldA) [Mass fraction] 99 % Dr. Blake Zuluaga Work Phone: [facility] Work Phone: 08-10-2021 12:08-0400 Systolic blood pressure 138 mm[Hg] Dr. Blake Zuluaga Work Phone: [facility] Work Phone: Encounters Encounter Date Encounter Type Care Provider Facility Start: 09-17-2024 End: 09-17-[address] Andreea Zuluaga MD Work Phone: -Outpatient Breast Imaging Start: 09-17-2024 End: 09-17-[address] Andreea Zuluaga MD -Outpatient Breast Imaging Work Phone: Start: 09-17-2024 End: 09-17-2024 ambulatory Andreea Zuluaga Facility:[facility] Start: 08-24-2024 ambulatory Luther Lainez ty:[facility] Start: 08-18-2024 End: 08-18-[address] Andreea Zuluaga MD Work Phone: [facility] Work Phone: Start: 08-18-2024 End: 08-18-2024 Patient encounter procedure Luther Love DPM -Radiology [place] Work Phone: Start: 08-18-2024 End: 08-18-2024 ambulatory Luther Love Facility:[facility] Start: 06-30-2024 ambulatory Luther Lainez ty:[facility] Start: 06-30-2024 Registered Recurring Luther flowers DPM -Physical Therapy Work Phone: Start: 06-22-2024 End: 06-22-2024 Patient encounter procedure Real Ag 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 Work Phone: Start: 06-22-2024 End: 06-22-2024 ambulatory Real Ag NP Facility:[facility] Start: 05-30-2024 ambulatory Andreea Zuluaga Faci lity:[facility] Start: 05-30-2024 Non-patient / Non-visit Omar Vines DO -[facility] Start: 05-30-2024 End: 05-30-2024 Admission to same day surgery center Omar Vines DO -Endoscopy Work Phone: Start: 05-30-2024 End: 05-30-[address] Andreea Zuluaga MD Work Phone: [facility] Work Phone: Start: 05-26-2024 Registered Recurring Luther flowers DPM -Physical Therapy Work Phone: Start: 03-17-2024 End: 03-17-2024 Patient encounter procedure Arnaud Dyer 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 Work Phone: Start: 03-17-2024 End: 03-17-2024 ambulatory Andreea Zuluaga Facility:[facility] Start: 03-17-2024 End: 03-17-2024 ambulatory Arnaud Dyer Facility:[facility] Start: 12-17-2023 End: 12-17-2023 ambulatory Andreea Zuluaga Facility:[facility] Start: 12-17-2023 End: 12-17-2023 ambulatory Andreea Zuluaga Facility:[facility] Start: 11-29-2023 End: 11-29-2023 ambulatory Andreea Zuluaga Facility:[facility] Start: 11-08-2023 ambulatory Andreea Zuluaga Faci lity:[facility] Start: 11-08-2023 End: 11-08-2023 ambulatory Andreea Zuluaga Facility:[facility] Start: 11-05-2023 End: 11-05-2023 ambulatory Andreea Zuluaga Facility:[facility] Start: 10-31-2023 End: 10-31-2023 ambulatory Andreea Zuluaga Facility:[facility] Start: 10-31-2023 End: 10-31-2023 ambulatory Omar Vines Facility:[facility] Start: 10-16-2023 End: 10-16-2023 ambulatory Andreea Zuluaga Facility:[facility] Start: 10-16-2023 End: 10-16-2023 ambulatory Andreea Zuluaga Facility:[facility] Start: 10-07-2023 End: 10-07-2023 Emergency department patient visit Andreea Zuluaga Facility:[facility] Start: 10-04-2023 End: 10-04-2023 ambulatory Andreea Zuluaga Facility[facility] Start: 01-22-2023 End: 01-22-[address] Blake Zuluaga Work Phone: [facility] Work Phone: Start: 01-22-2023 End: 01-22-[address] Blake Zuluaga Work Phone: [facility] Work Phone: Start: 01-11-2023 End: 01-11-[address] Blake Zuluaga Work Phone: [facility] Work Phone: Start: 01-11-2023 End: 01-11-[address] Blake Zuluaga Work Phone: [facility]-Outpatient Bone Densitometry Work Phone: Start: 10-17-2022 Non-patient / Non-visit Dr. Blake Zuluaga Work Phone: [facility] Start: 10-17-2022 End: 10-17-2022 Admission to same day surgery center Dr. Blake Zuluaga Work Phone: [facility]-Endoscopy Work Phone: Start: 10-17-2022 End: 10-17-[address] Blake Zuluaga Work Phone: [facility] Work Phone: Start: 07-18-2022 End: 07-18-[address] Blake Zuluaga Work Phone: [facility] Work Phone: Start: 07-18-2022 End: 07-18-[address] Blake Zuluaga Work Phone: [facility]-Outpatient Breast Imaging Start: 07-07-2022 Non-patient / Non-visit Dr. Blake Zuluaga Work Phone: [facility] Start: 07-04-2022 End: 07-04-[address] Blake Zuluaga Work Phone: [facility]-Laboratory, [place] case check[facility] Start: 06-17-2022 End: 06-17-2022 ambulatory [facility] Work Phone: Start: 06-17-2022 End: 06-17-2022 Patient encounter procedure [facility] Start: 02-22-2022 End: 02-22-[address] Blake Zuluaga Work Phone: [facility] Work Phone: Start: 02-22-2022 End: 02-22-[address] Blake Zuluaga Work Phone: [facility] Start: 02-05-2022 End: 02-05-[address] Blake Zuluaga Work Phone: [facility] Start: 01-21-2022 End: 01-21-[address] Blake Zuluaga Work Phone: [facility] Start: 11-16-2021 End: 11-16-[address] Blake Zuluaga Work Phone: [facility] Work Phone: Start: 11-16-2021 End: 11-16-[address] Blake Zuluaga Work Phone: [facility]-Physical Therapy Start: 10-26-2021 End: 10-26-[address] Blake Zuluaga Work Phone: [facility] Work Phone: Start: 10-26-2021 End: 10-26-[address] Blake Zuluaga Work Phone: [facility] Start: 08-10-2021 End: 08-10-[address] Blake Zuluaga Work Phone: [facility] Start: 08-14-2017 End: 08-14-2017 Emergency department patient visit CHRIS WEBSTER Facility:[facility] Procedures Date Procedure Procedure Detail Performing Clinician Start: 09-17-[address] Andreea Zuluaga MD Work Phone: Start: 08-18-2024 X-ray of lumbosacral spine Dr. Travis Zuluaga MD Work Phone: Start: 05-30-[address] Travis Zuluaga MD Work Phone: Start: 03-17-2024 X-ray of chest posteroanterior view Dr. Andreea Zuluaga MD Work Phone: Start: 01-11-2023 Dual energy X-ray absorptiometry Dr. Chadd Zuluaga Work Phone: Start: 10-17-[address] Blake Zuluaga Work Phone: Start: 07-18-[address] Blake Zuluaga Work Phone: Start: 02-22-2022 Plain chest X-ray Dr. Blake Zuluaga Work Phone: Start: 10-26-2021 X-ray of lumbosacral spine Dr. Travis Zuluaga Work Phone: Start: 10-26-2021 Plain x-ray of pelvis and lower extremity Dr. Blake Zuluaga Work Phone: Plan of Treatment Date Care Activity Detail Author Start: 05-30-2024 Egd transoral biopsy single/multiple EGD BIOPSY SINGLE/MULTIPLE [facility] Start: 05-30-2024 Patient discharge [facility] Start: 10-17-2022 Colonoscopy w/biopsy single/multiple COLONOSCOPY AND BIOPSY [facility] Start: 10-17-2022 Colsc flx w/rmvl of tumor polyp lesion snare tq COLONOSCOPY W/LESION REMOVAL [facility] Start: 10-17-2022 Patient discharge [facility] Colonoscopy [facility] Patient referral [facility] Work Phone: Immunizations Immunization Date Immunization Notes Care Provider Fa cility 10-07-2023 tetanus toxoid, reduced diphtheria toxoid, and acellular pertussis vaccine, adsorbed Dr. Andreea Zuluaga MD Work Phone: [facility] Payers Date Payer Category Payer Self-pay [id number] 2023 Unknown [id number] 3e [id number] 2017 Unknown [id number] 2016 Unknown [id number] Unknown [id number] 2.16.8 [id number] Unknown [id number] 2.16.8 [id number] Unknown [id number] 2.16.8 [id number] Unknown [id number] 2.16.8 [id number] Unknown [id number] 2.16.8 [id number] Unknown [id number] 2.16.8 40.1.160416.3.579.2.462 Unknown [id number] 2.16.8 40.1.245555.3.579.2.462 Unknown [id number] 2.16.8 40.1.151809.3.579.2.462 Unknown [id number] 2.16.8 40.1.681906.3.579.2.462 Unknown [id number] 2.16.8 40.1.187800.3.579.2.462 Unknown [id number] 2.16.8 40.1.322505.3.579.2.462 Unknown [id number] 2.16.8 40.1.603192.3.579.2.462 Unknown [id number] 2.16.8 40.1.445346.3.579.2.462 Unknown [id number] 2.16.8 40.1.551935.3.579.2.462 Unknown [id number] 2.16.8 40.1.108022.3.579.2.462 Unknown [id number] 2.16.8 40.1.148252.3.579.2.462 Unknown [id number] 2.16.8 40.1.306177.3.579.2.462 Unknown [id number] 2.16.8 40.1.344950.3.579.2.462 Unknown [id number] 2.16.8 40.1.301961.3.579.2.462 Unknown [id number] 2.16.8 [id number] Unknown [id number] 2.16.8 [id number] Social History Date Type Detail Facility Start: 08-10-2021 End: 10-16-2022 Tobacco smoking status KSIS Unknown if ever smoked [facility] Start: 1970 Sex Assigned At Female [facility] Start: 05-29-2024 Tobacco smoking status NHIS Ex-smoker (finding) [facility] Start: 05-30-2024 Sex Female (finding) [facility] NEGATED: Highlighted row [facility] NEGATED: Highlighted row Not [facility] Goals Date Patient Goal Desired Activity /State Mental Status Date Assessment Result Facility 05-30-2024 Cognitive function Voice/Name [facility] Work Phone: 10-17-2022 Cognitive function Voice/Name [facility] Work Phone: Clinical Notes 07-04-2022 to 08-19-2024 Note Date & Type Note Facility 08-19-2024 Radiology Diagnostic study note [facility] [address] [place] [address] L/S Spine Min 4 Views MR#: [id number] Acct: [id number] Name: JEREMIAH LATIF Rep #: [id number] : [id number] F [id number] From: Yamilka Sampson MD PCP: Dr. Andreea Zuluaga MD Status: REG CLI Study:L/S Spine Min 4 Views Date of Exam: 08/18/24 Exam# [id number] Ordering Dr: Luther Love DPM PROCEDURE: L/S SPINE MIN 4 VIEWS 08/18/2024 REASON FOR EXAM: PAIN TECHNIQUE: Standing AP view(s) of the thoracic and lumbar spine. COMPARISON: None. FINDINGS: Mild degenerative levoscoliosis apex at L3. Grade 1 anterolisthesis of L4 on L5. There are diffuse spondylotic changes. Findings are demonstrated to by diffuse disc space narrowing, osteophyte formation and degenerative endplate sclerosis. There is diffuse facet joint arthropathy with secondary bilateral neural foramina narrowing. No fracture or dislocation is seen. No aggressive lytic or blastic bony lesion is noted. RAD/L/S Spine Min 4 Views IMPRESSION: Spondylosis. Findings are more prominent at L4-L5 and L5-S1 levels. Grade 1 retrolisthesis of L4 on L5. Mildly exaggerated lumbar lordosis. Reading Location: [place] [address] CC: ARAVIND Love; Dr. Andreea Zuluaga MD ~ [employer] Consultant: Signed [facility] 05-30-2024 Evaluation note Diagnosis Onset Date Resolution Barretts esophagus acute May 30, 2024 5:23am GERD (gastroesophageal reflux disease) acute May 30, 2024 5:23am Wheezing noneactive June 22 11:45am [facility] Work Phone: 1(281) 932-417203-14-2025 Consult note [facility] Medical Records Department [address] [place] [address] Anesthesia Postop Eval I 05/30/2415 MR#: [id number] Acct: [id number] Name: JEREMIAH LATIF Rep #:[id number] : 1970 53 From: Real Arora PCP: Dr. Andreea Zuluaga MD [place] [facility] [place] Race[place] C Location: [place] [address] Anesthesia: Postop Eval I Current Vital Signs Temperature: 97.2 F Pulse Rate: 67 Blood Pressure: 121/69 Respiratory Rate: 16 Pulse Ox: 96 Oxygen Delivery Method: Room Air Assessment Airway patent: Yes Spontaneous unlabored respirations: Yes Mental status: Awake and Calm nausea: No Vomiting: No Anesthesia Complication: No Fluid Hydration Crystalloid volume administer (ml): 30 Total IV fluid infused: 30 Progress Note Anesthesia document: Postop Eval 1 completed: Yes 05/30/24715 > Date _ Real Delgadillo Signature: Date CC: ~ Signed [facility]03-14-2025 Procedure note [facility] Medical Records Department [address] [place] [address] EGD Report MR#: [id number] Acct: [id number] Name: JEREMIAH LATIF Rep #:[id number] : 1970 53 From: Omar Vines DO PCP: Dr. Andreea Zuluaga MD [place] Patient Name: Jeremiah Latif Procedure Date: 05/30/2024 6:35 AM Date of : 1970 Age: 53 Procedure: Upper GI endoscopy Indications: Follow-up of Cross's esophagus Providers: Omar Vines DO Referring MD: Blake Zuluaga Medicines: Monitored Anesthesia Care Patient Profile: This is a 53 year old female. Refer to note in patient chart for documentation of history and physical. Patient has symptoms of acute heartburn. Complications: No immediate complications. Procedure: Pre-Anesthesia Assessment: - Prior to the procedure, a History and Physical was performed, and patient medications and allergies were reviewed. The patient is competent. The risks and benefits of the procedure and the sedation options and risks were discussed with the patient. All questions were answered and informed consent was obtained. Patient identification and proposed procedure were verified by the physician in the pre-procedure area. Mental Status Examination: alert and oriented. Airway Examination: normal oropharyngeal airway and neck mobility. Respiratory Examination: clear to auscultation. CV Examination: normal. ASA Grade Assessment: II - A patient with mild systemic disease. After reviewing the risks and benefits, the patient was deemed in satisfactory condition to undergo the procedure. The anesthesia plan was to use monitored anesthesia care (MAC). Immediately prior to administration of medications, the patient was re-assessed for adequacy to receive sedatives. The heart rate, respiratory rate, oxygen saturations, blood pressure, adequacy of pulmonary ventilation, and response to care were monitored throughout the procedure. The physical status of the patient was re-assessed after the procedure. After obtaining informed consent, the endoscope was passed under direct vision. Throughout the procedure, the patient's blood pressure, pulse, and oxygen saturations were monitored continuously. The Endoscope was introduced through the mouth, and advanced to the second part of duodenum. The upper GI endoscopy was accomplished without difficulty. The patient tolerated the procedure well. 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 The maximum longitudinal extent of these mucosal changes was 2 cm in length. Mucosa was biopsied with a cold forceps for histology in a targeted manner at intervals of 1 cm in the lower third of the esophagus. One specimen bottle was sent to pathology. Verification of patient identification for the specimen was done. Estimated blood loss was minimal. A medium-sized hiatal hernia was present. No gross lesions were noted in the stomach. No gross lesions were noted in the first portion of the duodenum. Impression: - Esophageal mucosal changes secondary to established short-segment Cross's disease. Biopsied. - Medium-sized hiatal hernia. - No gross lesions in the stomach. - No gross lesions in the first portion of the duodenum. Recommendation: - Discharge patient to home. - Resume previous diet. - Continue present medications. - Await pathology results. Procedure Code(s): --- Professional --- 08763, Esophagogastroduodenoscopy, flexible, transoral; with biopsy, single or multiple CPT copyright 2021 [employer]. All rights reserved. The codes documented in this report are preliminary and upon tapper shank review may be revised to meet current compliance requirements. Omar Vines DO 05/30/2024 7:13:59 AM This report has been signed electronically. Number of Addenda: 0 Note Initiated On: 05/30/2024 6:35 AM 05/30/24 0714 Date _ Omar Vines DO Cosigner Signature: Date (if indicated) CC: Dr. Andreea Zuluaga MD; Omar Vines DO ~ Date Dictated: 05/30/24 0635 Date Transcribed: [employer] Consultant: RF Signed [facility]03-14-2025 Procedure note [facility] Medical Records Department [address] [place] [address] Operative Report - CC Letter MR#: [id number] Acct: [id number] Name: JEREMIAH LATIF Rep #:[id number] : 1970 53 From: Omar Vines DO PCP: Dr. Andreea Zuluaga MD [place] [place]/30/2024 Blake Zuluaga [address] [place] [address] Re : Upper GI endoscopy procedure for Jeremiah Latif Dear Dr. Zuluaga This procedure was performed on Thursday, May 30, 2024. My impressions and recommendations are as follows: Impressions : - Esophageal mucosal changes secondary to established short-segment Cross's disease. Biopsied. - Medium-sized hiatal hernia. - No gross lesions in the stomach. - No gross lesions in the first portion of the duodenum. Recommendations : - Discharge patient to home. - Resume previous diet. - Continue present medications. - Await pathology results. My findings are described in the full procedure note, which is enclosed. If I can be of further assistance, please feel free to contact me at . Sincerely, Omar Vines DO 05/30/2024 7:13:59 AM This report has been signed electronically. 05/30/24713 Date _ Omar Vines DO Cosigner Signature: Date (if indicated) CC: Dr. Andreea Zuluaga MD; Omar Vines DO ~ Date Dictated: 05/30/2435 Date Transcribed: [employer] Consultant: RF Signed [facility]03-14-2025 History and physical note [facility] Medical Records Department [address] [place] [address] History & Physical Exam 05/30/24 0652 MR#: [id number] Acct: [id number] Name: JEREMIAH LATIF Rep #:[id number] : 1970 53 From: Omar Vines DO PCP: Dr. Andreea Zuluaga MD Status :[facility] Location: [place] [address] HPI - General General Date of Admission: 05/30/24 Date of Service: 05/30/24 Chief Complaint: Cross's esophagus HPI Narrative JEREMIAH LATIF, is a 53 F who presents today for upper endoscopy because of history of Cross's esophagus. Colonoscopy 8.1.23 Three 1 to 2 mm polyps in the sigmoid colon, at the splenic flexure and in the ascending colon, removed with a hot snare. Resected and retrieved. Diverticulosis in the sigmoid colon. One 4 mm polyp in the ascending colon, removed with a jumbo cold forceps. Resected and retrieved. *BGI established 10.31.23 pt reports a 25 year history of GERD. She currently hasher symptoms managed through supplements and occasional omeprazole and TUMS. Pt reports HB if she eats right before bedand with tomato-based foods. Pt states her aunt of esophageal cancer and would like to get andEGD; pt states she has never had an upper scope. 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 Biopsied. Small hiatal hernia. Widely patent duodenal switch, characterized by healthy appearing mucosa was found. OV 11.29.23 pt reports that she is feeling well overall and only has occasional nausea that she is unable to identify a trigger or pattern for. Pt reports that she would like to discuss her EGD results. [facility] Medical History Cancer Migraine headache Restless legs Gastric reflux Former smoker Asthma Rib pain on left side Arthritis Hypertriglyceridemia Malabsorption Osteoporosis History of stress test Normal stress echocardiogram Wears glasses Back pain Gastric reflux Former smoker Shortness of breath on exertion COVID-19 BPD-DS Home Medications ?Medication ?Instructions ?Recorded ?Last Taken ?Type Calcium Citrate 800 mg PO .QID 10/04/2305/17 History Catapleat B 3 tab PO BID 10/04/23 History Collagen 1 tab PO DAILY 10/04/2305/17 History Fibra Syntropy 1 tab PO BID 10/04/23 History [place] Fortifier 1 tab PO BID 10/04/23 History Glutomine Complex 1 tab PO DAILY 10/04/23 Unkn own History Hypo Zymase 2 tab PO TIDWMEAL 10/04/23 0 05/26/24 History Lactobacillus acidophilus 1,000 mmu cells PO DAILY 05/26/24 History (Acidophilus capsule) Methyl B12 8 spray intranasal DAILY 05/26/24 History Tuna Om[place] 1 tab PO DAILY 10/04/2305/17 History Vitamin C +Iron 2 tab PO DAILY 10/04/23/ History acetylcysteine 600 mg capsule (NAC) 600 mg PO DAILY 05/26/24 History boron 6 mg tablet 12 mg PO BID 10/04/23 History cholecalciferol (vitamin D3) 1,250 1,250 mcg PO 3XW 05/26/24 History mcg (50,000 unit) capsule magnesium citrate 100 mg capsule 100 mg PO BID 4 05/26/24 History vit D3 50 mcg-vitamin K1 500 1 cap PO DAILY 10/04/23 05/26/24 History mcg-MK4 1,500 mcg-MK7 180 mcg capsule vitamin A 2,400 mcg capsule 2,400 mcg PO DAILY 4 05/26/24 History vitamin E mixed 400 unit tablet 400 unit PO BID 05/26/24 History zinc gluconate 50 mg tablet 50 mg PO DAILY 10/04/23 History omeprazole 40 mg capsule,delayed 40 mg PO BID GERD 3 m [facility] #180 11/29/23 05/26/24 Rx release caps cyclobenzaprine 10 mg tablet 10 mg PO TID PRN muscle s pasm #14 03/17/24 Unknown Rx tabs Allergy/AdvReac Type Severity Reaction Status Date / Time No Known Allergies Allergy Verified 05/30/24 05:43 Family History Father Kidney disease Hypertension Heart disease Diabetes Skin cancer Mother COPD (chronic obstructive pulmonary disease) Aunt Esophageal cancer Surgical History S/P endometrial ablation Hx of tubal ligation Status post biliopancreatic diversion with duodenal switch History of appendectomy History of Social History household members: spouse Smoking Status: Former smoker pack-years: 12 Tobacco: How many years used: 12 how long ago did patient quit smokin years ago alcohol intake: current alcohol intake frequency: holidays/special occasions only substance use type: does not use seatbelt use: always do you feel safe at home: Yes additional social history: -Miguel ROY Constitutional Constitutional: Denies fatigue, fever(s), poor appetite, weight gain or weight loss Gastrointestinal Gastrointestinal: Denies belching, bloating, change in bowel habits, change in stool character, chewing difficulty, coffee ground emesis, constipation, cramping, diarrhea, dyspepsia, dysphagia, earlysatiety, excessive flatus, fecalincontinence, heartburn, hematemesis, hematochezia, hemorrhoids, loose stools, melena, nausea, odynophagia, rectal bleeding, tenesmus, vomiting or weight changes Vital Signs Vital Signs Vital Signs: 05/30/24 05:45 05/30/24 05:46 05/30/24 06:23 Temperature 97.2 F L 97.2 F L Temperature Source Temporal Pulse Rate 62 62 Respiratory Rate 18 18 Respiratory Pattern Normal Blood Pressure 126/51 H 126/51 H Blood Pressure Mean 76 Blood Pressure Source Monitor Blood Pressure Position Semi-Fowlers Blood Pressure Location Left Arm Pulse Ox 97 97 Oxygen Delivery Method Room Air Room Air Weight Weight: 211 lb 3.2 oz Body Mass Index (BMI) 35.1 Physical Exam Const alert, oriented x3, no apparent distress and healthy appearing General Appearance: cooperative GI normal to inspection, nondistended, normoactive bowel sounds, soft to palpation,non-tender and non-distended Percussion: normal to percussion Rectal Exam: deferred Assessment & Plan Assessment/Plan (1) GERD (gastroesophageal reflux disease): (2) Barretts esophagus: PLAN: Assessment and Plan Assessment and Plan (1) GERD (gastroesophageal reflux disease): Status: Acute (2) Barretts esophagus: Status: Acute Plan: She underwent an upper endoscopy and was discovered to have severe erosive esophagitis LA grade C to D. Biopsies of the distal esophagus were as follows distal esophagus, biopsy: Fragments of gastroesophageal mucosa with focal intestinal metaplasia (goblet cell metaplasia) consistent with Cross?s esophagus. Moderate acute and chronic inflammation. Negative for dysplasia she agreed to be on PPIs twice a day for 3 months then we will repeat her upperendoscopy. (3) Gastroesophageal reflux disease: Plan: She has a history of gastroesophageal reflux disease. Unfortunately she has previous diagnosis of osteoporosis so she has been trying to avoid proton pump inhibitors. She also has a history of duodenal gastric reflux disease secondaryto previous duodenal switch procedure for weight loss. She did pre viously lose 130 pounds. She has avoided diabetes with her previous surgery. She takes a lot of supplementations due to mild source of issues from her previous gastric bypass surgery. She has a family history of esophageal cancer so we will screenher for Cross's esophagus. 05/30/24 0654 Cosigner Signature (if applicable): CC: Dr. Andreea Zuluaga MD; Omar Vines, ~ Signed [facility]03-14-2025 [facility] Medical Records Department [address] [place] [address] History Physical Exam 05/30/24 0652 MR#: [id number] Acct: [id number] Name: JEREMIAH LATIF Rep #: [id number] : 1970 53 From: Omar Vines DO PCP: Dr. Andreea Zuluaga MD Status:[facility] Location: [place] [address] HPI - General General Date of Admission: 05/30/24 Date of Service: 05/30/24 Chief Complaint: Cross's esophagus HPI Narrative JEREMIAH LATIF, is a 53 F who presents today for upper endoscopy because of history of Cross's esophagus. Colonoscopy .04.10 Three 1 to 2 mm polyps in the sigmoid colon, at the splenic flexure and in the ascending colon, removed with a hot snare. Resected and retrieved. Diverticulosis in the sigmoid colon. One 4 mm polyp in the ascending colon, removed with a jumbo cold forceps. Resected and retrieved. *BGI established 10.31.23 pt reports a 25 year history of GERD. She currently has her symptoms managed through supplements and occasional omeprazole and TUMS. Pt reports HB if she eats right before bed and with tomato-based foods. Pt states her aunt of esophageal cancer and would like to get and EGD; pt states she has never had an upper scope. 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 Biopsied. Small hiatal hernia. Widely patent duodenal switch, characterized by healthy appearing mucosa was found. OV 9 pt reports that she is feeling well overall and only has occasional nausea that she is unable to identify a trigger or pattern for. Pt reports that she would like to discuss her EGD results. [facility] Medical History Cancer Migraine headache Restless legs Gastric reflux Former smoker Asthma Rib pain on left side Arthritis Hypertriglyceridemia Malabsorption Osteoporosis History of stress test Normal stress echocardiogram Wears glasses Back pain Gastric reflux Former smoker Shortness of breath on exertion COVID-19 BPD-DS Home Medications ???Medication ???Instructions ???Recorded ???Last Taken ???Type Calcium Citrate 800 mg PO .QID 10/04/23 05/26/24 H istory Catapleat B 3 tab PO BID 10/04/23 05/26/24 His tory Collagen 1 tab PO DAILY 10/04/23 05/26/24 H istory Fibra Syntropy 1 tab PO BID 10/04/23 05/26/24 His tory [place] Fortifier 1 tab PO BID 10/04/23 05/26/24 His tory Glutomine Complex 1 tab PO DAILY 10/04/23 Unknown Hi story Hypo Zymase 2 tab PO TIDWMEAL 10/04/23 5 History Lactobacillus acidophilus 1,000 mmu cells PO DAILY 10/04/23 05/26/24 History (Acidophilus capsule) Methyl B12 8 spray intranasal DAILY 10/04/23 05/26/24 History Tuna [place] 1 tab PO DAILY 10/04/23 05/26/24 H istory Vitamin C +Iron 2 tab PO DAILY 10/04/23 05/26/24 H istory acetylcysteine 600 mg capsule (NAC) 600 mg PO DAILY 10/04/23 History boron 6 mg tablet 12 mg PO BID 10/04/23 05/26/24 His tory cholecalciferol (vitamin D3) 1,250 1,250 mcg PO 3XW 10/04/23 History mcg (50,000 unit) capsule magnesium citrate 100 mg capsule 100 mg PO BID 10/04/23 05/26/24 Hi story vit D3 50 mcg-vitamin K1 500 1 cap PO DAILY 10/04/23 05/26/24 H istory mcg-MK4 1,500 mcg-MK7 180 mcg capsule vitamin A 2,400 mcg capsule 2,400 mcg PO DAILY 10/04/23 History vitamin E mixed 400 unit tablet 400 unit PO BID 10/04/23 05/26/24 History zinc gluconate 50 mg tablet 50 mg PO DAILY 10/04/23 05/26/24 H istory omeprazole 40 mg capsule,delayed 40 mg PO BID GERD 3 months #180 05/26/24 Rx release caps cyclobenzaprine 10 mg tablet 10 mg PO TID PRN muscle spasm #14 03/17/24 Unknown Rx tabs Allergy/AdvReac Type Severity Reaction Status Date / Time No Known Allergies Allergy Verified 05/30/24 05:43 Family History Father Kidney disease Hypertension Heart disease Diabetes Skin cancer Mother COPD (chronic obstructive pulmonary disease) Aunt Esophageal cancer Surgical History S/P endometrial ablation Hx of tubal ligation Status post biliopancreatic diversion with duodenal switch History of appendectomy History of Social History household members: spouse Smoking Status: Former smoker pack-years: 12 Tobacco: How many years used: 12 how long ago did patient quit smokin years ago alcohol intake: current alcohol intake frequency: holidays/special occasions only substance use type: does not use seatbelt use: always do you feel safe at home: Yes additional social history: -Miguel ROY Constitutional Constitutional: Denies fat (more content not included)...[facility]2025 Consult note [facility] Medical Records Department [address] [place] [address] Pre-Anesthesia Evaluation 05/30/24620 MR#: [id number] Acct: [id number] Name: JEREMIAH LATIF Rep #:[id number] : 1970 53 From: Teo Garcia MD PCP: Dr. Andreea Zuluaga MD Status :REG [facility] Y Race: C Location: [place] [address]- ASA Classification* ASA Classification ASA Classification: 2 Assessment & Plan Anesthesia* Anesthesia Assessment Anesthesia Assessment: Discussed sedation and/or anesthesia options, risks, benefits, and alternatives with patient/parents/legal guardian/POA. Questions invited. The patient/parents/legal guardian/POA seems to understand and agrees to proceedwith anesthesia plan. Reviewed the physical assessment, medical history, allergy history and patient home medications list prior to surgery/procedure/anesthetic and documented any changes. Performed airway and anesthesia risk assessments. Anesthesia Type Anesthesia Type: General History Source History Obtained from:: Patient and Chart Anesthesia Focused Assessment* Temperature: 97.2 F Pulse Rate: 62 Blood Pressure: 126/51 Respiratory Rate: 18 Pulse Ox: 97 Oxygen Delivery Method: Room Air Airway Assessment Mouth opens: >3 cm Mallampati Score: II Teeth Condition: Intact Neck Range of motion (ROM): Full ROM Focused Labs Anesthesia Preop lab: CBC WBC 7.7 K/mm3 (4.4-11.0) 10/16/23 07:23 10/16/23 RBC 4.48 M/mm3 (4.2-5.4) 10/16/23 07:23 10/16/23 Hgb 12.7 g/dL (12.0-15.0) 10/16/23 07:23 10/16/23 Hct 37.9 % (37-47) 10/16/23 07:23 10/16/23 Plt Count 190 K/mm3 (150-450) 10/16/23 07:23 10/16/23 CHEMISTRY Potassium 3.8 mmol/L (3.5-5.1) 10/16/23 07:23 10/16/23 Sodium 141 mmol/L (136-145) 10/16/23 07:23 10/16/23 Magnesium 2.3 mg/dL (1.6-2.6) 10/16/23 07:23 10/16/23 Phosphorus 3.0 mg/dL (2.5-4.9) 01/22/23 15:47 01/22/23 BUN 15 mg/dL (7-18) 10/16/23 07:23 10/16/23 Creatinine 0.69 mg/dL (0.55-1.02) 10/16/23 07:23 10/16/23 Glucose 106 mg/dL (74-106) 10/16/23 07:23 10/16/23 TSH 1.24 uIU/mL (0.358-3.74) 01/22/23 15:47 COAG Pre-Assessment Diagnosis/Proposed Procedure Planned Operative Procedure(s): EGD Anesthesia History Anesthesia History - table hand: Anesthesia History - table hand Hx Hospitalization No 05/29/24 13:27 Any Problems With Anesthesia No 05/29/24 13:27 Cholinesterase deficiency No 05/29/24 13:27 You/Your Family Experience No 05/29/24 13:27 fever (hyperthermia) with Relationship Recent Exposure to Contagious No 05/30/24 05:45 Disease Does patient have nerve No 05/29/24 13:27 stimulator Patient instructed to have device shut off --Does patient have Pacemaker No 05/30/24 05:46 or ICD? When Was Last Pacemaker Check QUESTION #4 FULL TEXT: You/Your Family Experience fever (hyperthermia) with Anesthesia Last Oral Intake Last Oral intake: Last Oral Intake NPO since 22:00 05/30/24 05:46 Meds taken in AM with sips of No 05/30/24 05:46 water? Meds patient instructed to take am of surgery PONV PONV - table hand: PONV - table hand Female Yes 05/29/24 13:27 HX of Motion Sickness No 05/29/24 13:27 HX of N/V After Surgery No 05/29/24 13:27 Non-Smoker No 05/29/24 13:27 Duration of Surgery greater No 05/29/24 13:27 than 60 minutes Number of Risk Factors 1 05/29/24 13:27 PONV Score Low Risk 05/29/24 13:27 Height & Weight Height & Weight: Anesthesia: Height & Weight Height 5 ft 5 in 05/30/24 05:46 Weight: 95.799 kg 05/30/24 05:46 Body Mass Index (BMI) 35.1 05/30/24 05:46 Respiratory Assessment Respiratory Assessment - table hand: Respiratory Tract Infection Hx - table hand Hx Respiratory Tract Infection No 05/29/24 13:27 STOP Sleep Apnea STOP Sleep Apnea - table hand: STOP Sleep Apnea - table hand Hx Hypertension No 05/29/24 13:27 Hx Sleep Apnea No 05/29/24 13:27 CPAP BIPAP Do you snore loudly (louder No 05/29/24 13:27 than talking or can be heard Do you often feel tired/ No 05/29/24 13:27 fatigued/ sleepy during daytime? Has anyone observed you stop No 05/29/24 13:27 breathing during sleep? STOP Results Negative 05/29/24 13:27 QUESTION #5 FULL TEXT : Do you snore loudly (louder than talking or can be heard through closeddoors)? 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 Specify any problems Hx of Preganancy in last 3 No 05/29/24 13:27 Months Nurse Filling Out Transfusion [facility] 05/29/24 13:27 & Questions: Date: 05/29/24 05/29/24 13:27 Time: 13:35 05/29/24 13:27 Patient unable to answer at this time (ie. confused, unrespo /Reproduction History /Reproductive History - table hand: /Reproductive Hx- table hand Hx Now No 05/29/24 13:27 Gestational Age (in weeks): EDC: Hx Hx Para Hx Section SAB No 05/29/24 13:27 PFSH Medical History Cancer Migraine headache Restless legs Gastric reflux Former smoker Asthma Rib pain on left side Arthritis Hypertriglyceridemia Malabsorption Osteoporosis History of stress test Normal stress echocardiogram Wears glasses Back pain Gastric reflux Former smoker Shortness of breath on exertion COVID-19 BPD-DS Home Medications ?Medication ?Instructions ?Recorded ?Last Taken ?Type Calcium Citrate 800 mg PO .QID 10/04/2305/17 History Catapleat B 3 tab PO BID 10/04/23 History Collagen 1 tab PO DAILY 10/04/2305/17 History Fibra Syntropy 1 tab PO BID 10/04/23 History [place] Fortifier 1 tab PO BID 10/04/23 History Glutomine Complex 1 tab PO DAILY 10/04/23 Unkn own History Hypo Zymase 2 tab PO TIDWMEAL 10/04/23 0 05/26/24 History Lactobacillus acidophilus 1,000 mmu cells PO DAILY 05/26/24 History (Acidophilus capsule) Methyl B12 8 spray intranasal DAILY 05/26/24 History Tuna [place] 1 tab PO DAILY 10/04/2305/17 History Vitamin C +Iron 2 tab PO DAILY 10/04/2305/17 History acetylcysteine 600 mg capsule (NAC) 600 mg PO DAILY 05/26/24 History boron 6 mg tablet 12 mg PO BID 10/04/23 History cholecalciferol (vitamin D3) 1,250 1,250 mcg PO 3XW 05/26/24 History mcg (50,000 unit) capsule magnesium citrate 100 mg capsule 100 mg PO BID 4 05/26/24 History vit D3 50 mcg-vitamin K1 500 1 cap PO DAILY 10/04/23 05/26/24 History mcg-MK4 1,500 mcg-MK7 180 mcg capsule vitamin A 2,400 mcg capsule 2,400 mcg PO DAILY 4 05/26/24 History vitamin E mixed 400 unit tablet 400 unit PO BID 05/26/24 History zinc gluconate 50 mg tablet 50 mg PO DAILY 10/04/23 History omeprazole 40 mg capsule,delayed 40 mg PO BID GERD 3 m ont #180 11/29/23 05/26/24 Rx release caps cyclobenzaprine 10 mg tablet 10 mg PO TID PRN muscle s pasm #14 03/17/24 Unknown Rx tabs Allergy/AdvReac Type Severity Reaction Status Date / Time No Known Allergies Allergy Verified 05/30/24 05:43 Family History (Updated 12/26/23 @ 12:48 by Laurel Galan LPN) Father Kidney disease Hypertension Heart disease Diabetes Skin cancer Mother COPD (chronic obstructive pulmonary disease) Aunt Esophageal cancer Surgical History S/P endometrial ablation Hx of tubal ligation Status post biliopancreatic diversion with duodenal switch History of appendectomy History of Social History (Updated 12/17/23 @ 08:52 by Jolie Pablo) household members: spouse Smoking Status: Former smoker pack-years: 12 Tobacco: How many years used: 12 how long ago did patient quit smokin years ago alcohol intake: current alcohol intake frequency: holidays/special occasions only substance use type: does not use seatbelt use: always do you feel safe at home: Yes additional social history: -Miguel Sloan Prior Cardiac Testing/Procedures Prior Cardiac Testing/Procedures: Stress Test (Negative (adequate) stress echocardiogram in 2020) Review of Systems (Anesthesia) ROS Narrative System reviewed and no additional complaints, except as documented. Physical Exam Const alert, oriented x3 and average body habitus Resp normal respiratory effort, normal air movement and clear to auscultation bilaterally Cardio regular rate, regular rhythm, no murmurs and diaphoretic 05/30/24 0626 MD> Date _ Teo Garcia [facility] Signature: Date CC: ~ Signed [facility]12-30-2024 Evaluation note* Diagnosis Onset Date Resolution Status Admit Date Rib pain on left side acute Feb 11:51am Barretts esophagus acute May 30, 2024 5:23am GERD (gastroesophageal reflu x disease) acute May 30, 2024 5:23am [facility] Work Phone: 1(406) 715-402608-22-2024 [facility] Medical Records Department [address] [place] [address] History Physical Exam 11/08/23 0634 MR#: [id number] Acct: [id number] Name: JEREMIAH LATIF Rep #: [id number] : 1970 53 From: Omar Friend DO PCP: Dr. Andreea Zuluaga MD Status:[facility] Location: [place] [address] History and Physical Date of Admission: 11/08/23 JEREMIAH LATIF, is a 53 F who presents to the office today for initial consult. Colonoscopy 8.. Three 1 to 2 mm polyps in the sigmoid colon, at the splenic flexure and in the ascending colon, removed with a hot snare. Resected and retrieved. Diverticulosis in the sigmoid colon. One 4 mm polyp in the ascending colon, removed with a jumbo cold forceps. Resected and retrieved. *BGI established 8 pt reports a 25 year history of GERD. She currently has her symptoms managed through supplements and occasional omeprazole and TUMS. Pt reports HB if she eats right before bed and with tomato-based foods. Pt states her aunt of esophageal cancer and would like to get and EGD; pt states she has never had an upper scope. ROS Const Constitutional: No fatigue, fever(s) or weight change ENT ENT: No difficulty swallowing Gastro GI: No abdominal pain, belching, bloating, change in bowel habits, change in stool character, coffee ground emesis, constipation, cramping, diarrhea, heartburn, difficulty swallowing, feeling full early, excessive flatus, incontinent of stools, Vomiting blood/hematemesis, Blood in stool, loose stools, Black,tarry stools, nausea/dyspepsia, pain with swallowing, vomiting or other Musc Musculoskeletal: Positive for muscle cramps, numbness, stiffness, tingling and Arthritis; No joint pain Skin Skin: No yellowing of the eye or itchy eyes Neuro Neurology: Positive for numbness and tingling Psych Psychiatric: No anxiety and No depression Endo Endocrine: No fatigue or weight change Aller/Imm Allergy/Immunologic: No itchy eyes Abdullahi/Lymp Hematologic/Lymphatic: No easy bleeding or easy bruising Exam Const General: cooperative, healthy appearing, comfortable, no acute distress, well developed and well groomed Nutritional Appearance: average body habitus and well nourished Orientation: alert, awake and oriented x3 HENMT Head: normocephalic and atraumatic Ears: hearing grossly normal bilaterally, external ears normal and TM's normal bilaterally Nose: mucous membranes and turbinates abnormal erythematous and nasal discharge Face and sinus: sinus tenderness maxillary Throat: posterior oropharynx abnormal erythema Resp Effort Inspection: normal respiratory effort, able to speak in complete sentences, symmetric chest movement and cough Auscultation: Bilateral: Clear to Auscultation Cardio Rate: regular rate Rhythm: regular rhythm Heart Sounds: no murmurs Assessment and Plan Assessment and Plan (1) Gastroesophageal reflux disease: Plan: She has a history of gastroesophageal reflux disease. Unfortunately she has previous diagnosis of osteoporosis so she has been trying to avoid proton pump inhibitors. She also has a history of duodenal gastric reflux disease secondary to previous duodenal switch procedure for weight loss. She did previously lose 130 pounds. She has avoided diabetes with her previous surgery. She takes a lot of supplementations due to mild source of issues from her previous gastric bypass surgery. She has a family history of esophageal cancer so we will screen her for Cross's esophagus. Pending what we see on the upper scope she may need a gastric emptying study and subsequent gastrin levels along with food allergy testing. Orders: Orders EGD 11/02/23 K21.9 - Gastro-esophageal reflux disease without esophagitis Gastrin, Serum Today K21.9 - Gastro-esophageal reflux disease without esophagitis Allergen, Food Profile 14 Today K21.9 - Gastro-esophageal reflux disease without esophagitis I have examined the patient and the H P has been reviewed. There are no clinical changes since date of exam. 11/08/23 0635 Cosigner Signature (if applicable): CC: Dr. Andreea Zuluaga MD; Omar Vines DO [facility]igned[facility] History and physical note Author Omar Vines [facility] October 17, 2022 1:35pm Note Date/Time October 17, 2022 1:3 6pm [facility] Medical Records Department [address] [place] [address] History & Physical Exam 10/17/22 1334 MR#: [id number] Acct: [id number] Name: JEREMIAH LATIF Rep #:[id number] : 1970 52 From: Omar Friend DO PCP: Dr. Blake Zuluaga MD Status: [facility] Location: [place] [address] HPI - General General Date of Admission: 10/17/22 Date of Service: 10/17/22 Chief Complaint: Screening colonoscopy HPI Narrative JEREMIAH LATIF, is a 52 F who presents today for screening colonoscopy. She has past medical history of obesity with gastric sleeve and post duodenal switchprocedure done in 2007. She is having a colonoscopy in the past. She does not have abdominal pain. She is not having chest pain or shortness of breath. She denies any weakness. Overall she is in very good health. All other 16 review systems are negative except as per body mentioned HPI. [facility] Medical History (Updated 10/16/22 @ 10:01 by Lennie Rendon) Back pain BPD-DS COVID-19 Former smoker Gastric reflux History of stress test Normal stress echocardiogram Shortness of breath on exertion Wears glasses Home Medications albuterol sulfate 90 mcg/actuation aerosol inhaler 2 puff inhalation .Q4-6H PRN shortness of breath or wheezing #6.7 grams 06/07/19 [Rx Last Taken Unknown] cholecalciferol (vitamin D3) 50 mcg (2,000 unit) capsule 50 mcg PO DAILY 07/07/22 [History Last Taken Unknown] omeprazole 40 mg capsule,delayed release 40 mg PO PRN GERD 07/07/22 [History Last Taken Unknown] naproxen 250 mg tablet 500 mg PO DAILY PRN pain 10/16/22 [History Last Taken Unknown] Allergy/AdvReac Type Severity Reaction Status Date / Time No Known Allergies Allergy Verified 10/16/22 09:32 Family History Father Kidney disease Hypertension Heart disease Diabetes Mother COPD (chronic obstructive pulmonary disease) Surgical History (Updated 10/16/22 @ 09:55 by Lennie Rendon) History of appendectomy History of Hx of tubal ligation Status post biliopancreatic diversion with duodenal switch Social History Smoking Status: Former smoker alcohol intake: never ROS Review of Systems ROS Unobtainable: other Constitutional Constitutional: Denies fatigue, fever(s), poor appetite, weight gain or weight loss ENT HEENT: Denies mouth lesions Cardiovascular Cardiovascular: Denies abdominal bloating, abdominal edema or abdominal pain Respiratory/Chest Respiratory/Chest: Denies change in mental status, change in phlegm color, chestcongestion or chest tightness Gastrointestinal Gastrointestinal: Denies belching, bloating, change in bowel habits, change in stool character, chewing difficulty, coffee ground emesis, constipation, cramping, diarrhea, dyspepsia, dysphagia, early satiety, excessive flatus, fecalincontinence, heartburn, hematemesis, hematochezia, hemorrhoids, loose stools, melena, nausea, odynophagia, rectal bleeding, tenesmus, vomiting or weight changes Genitourinary Genitourinary: Denies abdominal discomfort, burning urination or itching Musculoskeletal Musculoskeletal: Reports as per HPI; Denies muscle weakness or myalgias Integumentary Integumentary: Denies jaundice Neurologic Neurologic: Denies lack of coordination or weakness Psychiatric Psychiatric: Denies confusion, depression, memory loss, mood swings, paranoia orsuicidal ideation Endocrine Endocrinology: Denies systems reviewed and no addt'l complaints, except as documented Hematologic/Lymphatic Hematologic/Lymphatic: Denies anemia, easy bleeding, easy bruising or lymphadenopathy Allergic/Immunologic Allergic/Immunologic: Denies systems reviewed and no addt'l complaints, except as documented Physical Exam Const alert General Appearance: cooperative Orientation / Consciousness: oriented to person HEENT hearing grossly normal bilaterally Head and Scalp: normal to inspection Face and Sinus: face symmetric Nose: external nose normal Mouth: oral and palatal mucosa normal Eyes conjunctivae normal General Eye: normal appearance of both eyes Neck full ROM General: normal visual inspection Lymph Lymphatic: no lymphadenopathy noted Chest inspection of chest normal and palpation of chest normal Chest: symmetrical chest wall rise Resp normal respiratory effort Effort and Inspection: able to speak in complete sentences Cardio regular rate GI non-distended Percussion: normal to percussion Rectal Exam: deferred Neuro Speech: speech normal Gait (Neuro): normal gait Assessment & Plan Assessment/Plan (1) Encounter for screening for malignant neoplasm of colon: PLAN: She was explained alternatives risk and if it did not withstanding bleeding, infection, sepsis, perforation, or discharge and . She will havean ASA of 2. 10/17/22 1335 <Electronically signed by Omar Vines DO> Cosigner Signature (if applicable): CC: Dr. Blake Zuluaga MD; Omar Vines DO~ Signed [facility] Work Phone: 1(749) 694-859608-01-2023 [facility]WT[facility]-2022 Procedure noteWTogus [facility] Center04-18-2023 NotePap Smear Specimen AdequacyApr2022 4:05pmComment.Satisfactory for evaluation. Endocervical and/or squamous metaplasticcells (endocervical component)are present.[facility] A#[id number] HospitalComment on above: Satisfactory for evaluation. Endocervical and/or squamous metaplasticcells (endocervical component)are present.07-04-2022 NotePap Smear Specimen Adequacy Ami 2022 4:05pmComment.Satisfactory for evaluation. Endocervical and/or squamous metaplasticcells (endocervical component)are present.[facility] A#[id number] HospitalComment on above:Satisfactory for evaluation. Endocervical and/or squamous metaplasticcells (endocervical component)are present.Chief complaint+Reason for visit Narrative* Chief Complaint Cough R PIRIFORMIS, LUMBAR DDD. RX HERE Reason for Visit COVID-19 [facility] Work Phone: Consult note Author Teo Garica [facility] Note Date/Time May 30, 2024 6:2 6am [facility] Medical Records Department [address] [place] [address] Pre-Anesthesia Evaluation 05/30/24 0621 MR#: [id number] Acct: [id number] Name: JEREMIAH LATIF Rep #:[id number] : 1970 53 From: Teo Garcia MD PCP: Dr. Andreea Zuluaga MD Status :REG NVC Y Race: C Location: [place] [address]-1 ASA Classification* ASA Classification ASA Classification: 2 Assessment & Plan Anesthesia* Anesthesia Assessment Anesthesia Assessment: Discussed sedation and/or anesthesia options, risks, benefits, and alternatives with patient/parents/legal guardian/POA. Questions invited. The patient/parents/legal guardian/POA seems to understand and agrees to proceedwith anesthesia plan. Reviewed the physical assessment, medical history, allergy history and patient home medications list prior to surgery/procedure/anesthetic and documented any changes. Performed airway and anesthesia risk assessments. Anesthesia Type Anesthesia Type: General History Source History Obtained from:: Patient and Chart Anesthesia Focused Assessment* Temperature: 97.2 F Pulse Rate: 62 Blood Pressure: 126/51 Respiratory Rate: 18 Pulse Ox: 97 Oxygen Delivery Method: Room Air Airway Assessment Mouth opens: >3 cm Mallampati Score: II Teeth Condition: Intact Neck Range of motion (ROM): Full ROM Focused Labs Anesthesia Preop lab: CBC WBC 7.7 K/mm3 (4.4-11.0) 10/16/23 07:23 10/16/23 RBC 4.48 M/mm3 (4.2-5.4) 10/16/23 07:23 10/16/23 Hgb 12.7 g/dL (12.0-15.0) 10/16/23 07:23 10/16/23 Hct 37.9 % (37-47) 10/16/23 07:23 10/16/23 Plt Count 190 K/mm3 (150-450) 10/16/23 07:23 10/16/23 CHEMISTRY Potassium 3.8 mmol/L (3.5-5.1) 10/16/23 07:23 10/16/23 Sodium 141 mmol/L (136-145) 10/16/23 07:23 10/16/23 Magnesium 2.3 mg/dL (1.6-2.6) 10/16/23 07:23 10/16/23 Phosphorus 3.0 mg/dL (2.5-4.9) 01/22/23 15:47 01/22/23 BUN 15 mg/dL (7-18) 10/16/23 07:23 10/16/23 Creatinine 0.69 mg/dL (0.55-1.02) 10/16/23 07:23 10/16/23 Glucose 106 mg/dL (74-106) 10/16/23 07:23 10/16/23 TSH 1.24 uIU/mL (0.358-3.74) 01/22/23 15:47 COAG Pre-Assessment Diagnosis/Proposed Procedure Planned Operative Procedure(s): EGD Anesthesia History Anesthesia History - table hand: Anesthesia History - table hand Hx Hospitalization No 05/29/24 13:27 Any Problems With Anesthesia No 05/29/24 13:27 Cholinesterase deficiency No 05/29/24 13:27 You/Your Family Experience No 05/29/24 13:27 fever (hyperthermia) with Relationship Recent Exposure to Contagious No 05/30/24 05:45 Disease Does patient have nerve No 05/29/24 13:27 stimulator Patient instructed to have device shut off --Does patient have Pacemaker No 05/30/24 05:46 or ICD? When Was Last Pacemaker Check QUESTION #4 FULL TEXT: You/Your Family Experience fever (hyperthermia) with Anesthesia Last Oral Intake Last Oral intake: Last Oral Intake NPO since 22:00 05/30/24 05:46 Meds taken in AM with sips of No 05/30/24 05:46 water? Meds patient instructed to take am of surgery PONV PONV - table hand: PONV - table hand Female Yes 05/29/24 13:27 HX of Motion Sickness No 05/29/24 13:27 HX of N/V After Surgery No 05/29/24 13:27 Non-Smoker No 05/29/24 13:27 Duration of Surgery greater No 05/29/24 13:27 than 60 minutes Number of Risk Factors 1 05/29/24 13:27 PONV Score Low Risk 05/29/24 13:27 Height & Weight Height & Weight: Anesthesia: Height & Weight Height 5 ft 5 in 05/30/24 05:46 Weight: 95.799 kg 05/30/24 05:46 Body Mass Index (BMI) 35.1 05/30/24 05:46 Respiratory Assessment Respiratory Assessment - table hand: Respiratory Tract Infection Hx - table hand Hx Respiratory Tract Infection No 05/29/24 13:27 STOP Sleep Apnea STOP Sleep Apnea - table hand: STOP Sleep Apnea - table hand Hx Hypertension No 05/29/24 13:27 Hx Sleep Apnea No 05/29/24 13:27 CPAP BIPAP Do you snore loudly (louder No 05/29/24 13:27 than talking or can be heard Do you often feel tired/ No 05/29/24 13:27 fatigued/ sleepy during daytime? Has anyone observed you stop No 05/29/24 13:27 breathing during sleep? STOP Results Negative 05/29/24 13:27 QUESTION #5 FULL TEXT : Do you snore loudly (louder than talking or can be heard through closed doors)? 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 Specify any problems Hx of Preganancy in last 3 No 05/29/24 13:27 Months Nurse Filling Out Transfusion VLEHMAN 05/29/24 13:27 & Questions: Date: 05/29/24 05/29/24 13:27 Time: 13:35 05/29/24 13:27 Patient unable to answer at this time (ie. confused, unrespo /Reproduction History /Reproductive History - table hand: /Reproductive Hx- table hand Hx Now No 05/29/24 13:27 Gestational Age (in weeks): EDC: Hx Hx Para Hx Section SAB No 05/29/24 13:27 PFSH Medical History Cancer Migraine headache Restless legs Gastric reflux Former smoker Asthma Rib pain on left side Arthritis Hypertriglyceridemia Malabsorption Osteoporosis History of stress test Normal stress echocardiogram Wears glasses Back pain Gastric reflux Former smoker Shortness of breath on exertion COVID-19 BPD-DS Home Medications ?Medication ?Instructions ?Recorded ?Last Taken ?Type Calcium Citrate 800 mg PO .QID 10/04/2305/17 History Catapleat B 3 tab PO BID 10/04/23 History Collagen 1 tab PO DAILY 10/04/2305/17 History Fibra Syntropy 1 tab PO BID 10/04/23 History [place] Fortifier 1 tab PO BID 10/04/23 History Glutomine Complex 1 tab PO DAILY 10/04/23 Unkn own History Hypo Zymase 2 tab PO TIDWMEAL 10/04/23 0 05/26/24 History Lactobacillus acidophilus 1,000 mmu cells PO DAILY 05/26/24 History (Acidophilus capsule) Methyl B12 8 spray intranasal DAILY 05/26/24 History Tuna [employer] 1 tab PO DAILY 10/04/2305/17 History Vitamin C +Iron 2 tab PO DAILY 10/04/2305/17 History acetylcysteine 600 mg capsule (NAC) 600 mg PO DAILY 05/26/24 History boron 6 mg tablet 12 mg PO BID 10/04/23 History cholecalciferol (vitamin D3) 1,250 1,250 mcg PO 3XW 05/26/24 History mcg (50,000 unit) capsule magnesium citrate 100 mg capsule 100 mg PO BID 4 05/26/24 History vit D3 50 mcg-vitamin K1 500 1 cap PO DAILY 10/04/23 05/26/24 History mcg-MK4 1,500 mcg-MK7 180 mcg capsule vitamin A 2,400 mcg capsule 2,400 mcg PO DAILY 4 05/26/24 History vitamin E mixed 400 unit tablet 400 unit PO BID 05/26/24 History zinc gluconate 50 mg tablet 50 mg PO DAILY 10/04/23 History omeprazole 40 mg capsule,delayed 40 mg PO BID GERD 3 m [facility] #180 11/29/23 05/26/24 Rx release caps cyclobenzaprine 10 mg tablet 10 mg PO TID PRN muscle s pasm #14 03/17/24 Unknown Rx tabs Allergy/AdvReac Type Severity Reaction Status Date / Time No Known Allergies Allergy Verified 05/30/24 05:43 Family History (Updated 12/26/23 @ 12:48 by Laurel Galan LPN) Father Kidney disease Hypertension Heart disease Diabetes Skin cancer Mother COPD (chronic obstructive pulmonary disease) Aunt Esophageal cancer Surgical History S/P endometrial ablation Hx of tubal ligation Status post biliopancreatic diversion with duodenal switch History of appendectomy History of Social History (Updated 12/17/23 @ 08:52 by Jolie Pablo) household members: spouse Smoking Status: Former smoker pack-years: 12 Tobacco: How many years used: 12 how long ago did patient quit smokin years ago alcohol intake: current alcohol intake frequency: holidays/special occasions only substance use type: does not use seatbelt use: always do you feel safe at home: Yes additional social history: -Miguel Sloan Prior Cardiac Testing/Procedures Prior Cardiac Testing/Procedures: Stress Test (Negative (adequate) stress echocardiogram in 2020) Review of Systems (Anesthesia) ROS Narrative System reviewed and no additional complaints, except as documented. Physical Exam Const alert, oriented x3 and average body habitus Resp normal respiratory effort, normal air movement and clear to auscultation bilaterally Cardio regular rate, regular rhythm, no murmurs and diaphoretic 05/30/24 0626 <Electronically signed by Teo Garcia MD> Date _ Teo Garcia MD Cosigner Signature: Date CC: ~ Signed [facility] Work Phone: Consult note Author Real Arora [facility] Note Date/Time May 30, 2024 7:1 6am [facility] Medical Records Department [address] [place] [address] Anesthesia Postop Eval I 05/30/24 0715 MR#: [id number] Acct: [id number] Name: JEREMIAH LATIF Rep #:[id number] : 1970 53 From: Real Arora PCP: Dr. Andreea Zuluaga MD Status :REG SDC Y Race: C Location: [place] [address] Anesthesia: Postop Eval I Current Vital Signs Temperature: 97.2 F Pulse Rate: 67 Blood Pressure: 121/69 Respiratory Rate: 16 Pulse Ox: 96 Oxygen Delivery Method: Room Air Assessment Airway patent: Yes Spontaneous unlabored respirations: Yes Mental status: Awake and Calm nausea: No Vomiting: No Anesthesia Complication: No Fluid Hydration Crystalloid volume administer (ml): 30 Total IV fluid infused: 30 Progress Note Anesthesia document: Postop Eval 1 completed: Yes 05/30/24 0716 <Electronically signed by Real Arora > Date _ Real Arora Cosigner Signature: Date CC: ~ Signed [facility] Work Phone: Evaluation note* Diagnosis Onset Date Resolution Status COVID-19 [facility] Work Phone: Evaluation note* Diagnosis Onset Date Resolution Status Acute cough acute Bronchitis acute Wheezing acute Acute sinusitis acute [facility] Work Phone: Evaluation noteNo assessment information available [facility] Work Phone: Evaluation note* Diagnosis Onset Date Resolution Status Encounter for screening for malignant neoplasm of colo n acute [facility] Work Phone: History and physical note Author Omar Friend [facility] Note Date/Time May 30, 2024 6:5 4am [facility] Medical Records Department [address] [place] [address] History & Physical Exam 05/30/24 0652 MR#: [id number] Acct: [id number] Name: JEREMIAH LATIF Rep #:[id number] : 1970 53 From: Omar Vines DO PCP: Dr. Andreea Zuluaga MD [place] [facility] [place]: [address] HPI - General General Date of Admission: 05/30/24 Date of Service: 05/30/24 Chief Complaint: Cross's esophagus HPI Narrative JEREMIAH LATIF, is a 53 F who presents today for upper endoscopy because of history of Cross's esophagus. Colonoscopy 8.04.10 Three 1 to 2 mm polyps in the sigmoid colon, at the splenic flexure and in the ascending colon, removed with a hot snare. Resected and retrieved. Diverticulosis in the sigmoid colon. One 4 mm polyp in the ascending colon, removed with a jumbo cold forceps. Resected and retrieved. *BGI established 8 pt reports a 25 year history of GERD. She currently hasher symptoms managed through supplements and occasional omeprazole and TUMS. Pt reports HB if she eats right before bed and with tomato-based foods. Pt states her aunt of esophageal cancer and would like to get and EGD; pt states she has never had an upper scope. 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 Biopsied. Small hiatal hernia. Widely patent duodenal switch, characterized by healthy appearing mucosa was found. OV 9..24 pt reports that she is feeling well overall and only has occasional nausea that she is unable to identify a trigger or pattern for. Pt reports that she would like to discuss her EGD results. [facility] Medical History Cancer Migraine headache Restless legs Gastric reflux Former smoker Asthma Rib pain on left side Arthritis Hypertriglyceridemia Malabsorption Osteoporosis History of stress test Normal stress echocardiogram Wears glasses Back pain Gastric reflux Former smoker Shortness of breath on exertion COVID-19 BPD-DS Home Medications ?Medication ?Instructions ?Recorded ?Last Taken ?Type Calcium Citrate 800 mg PO .QID 10/04/2305/17 History Catapleat B 3 tab PO BID 10/04/23 History Collagen 1 tab PO DAILY 10/04/2305/17 History Fibra Syntropy 1 tab PO BID 10/04/23 History [place] Fortifier 1 tab PO BID 10/04/23 History Glutomine Complex 1 tab PO DAILY 10/04/23 Unkn own History Hypo Zymase 2 tab PO TIDWMEAL 10/04/23 0 05/26/24 History Lactobacillus acidophilus 1,000 mmu cells PO DAILY 05/26/24 History (Acidophilus capsule) Methyl B12 8 spray intranasal DAILY 05/26/24 History Tuna [place] 1 tab PO DAILY 10/04/2305/17 History Vitamin C +Iron 2 tab PO DAILY 10/04/2305/17 History acetylcysteine 600 mg capsule (NAC) 600 mg PO DAILY 05/26/24 History boron 6 mg tablet 12 mg PO BID 10/04/23 History cholecalciferol (vitamin D3) 1,250 1,250 mcg PO 3XW 05/26/24 History mcg (50,000 unit) capsule magnesium citrate 100 mg capsule 100 mg PO BID 4 05/26/24 History vit D3 50 mcg-vitamin K1 500 1 cap PO DAILY 10/04/23 05/26/24 History mcg-MK4 1,500 mcg-MK7 180 mcg capsule vitamin A 2,400 mcg capsule 2,400 mcg PO DAILY 4 05/26/24 History vitamin E mixed 400 unit tablet 400 unit PO BID 05/26/24 History zinc gluconate 50 mg tablet 50 mg PO DAILY 10/04/23 History omeprazole 40 mg capsule,delayed 40 mg PO BID GERD 3 m onths #180 11/29/23 05/26/24 Rx release caps cyclobenzaprine 10 mg tablet 10 mg PO TID PRN muscle s pasm #14 03/17/24 Unknown Rx tabs Allergy/AdvReac Type Severity Reaction Status Date / Time No Known Allergies Allergy Verified 05/30/24 05:43 Family History Father Kidney disease Hypertension Heart disease Diabetes Skin cancer Mother COPD (chronic obstructive pulmonary disease) Aunt Esophageal cancer Surgical History S/P endometrial ablation Hx of tubal ligation Status post biliopancreatic diversion with duodenal switch History of appendectomy History of Social History household members: spouse Smoking Status: Former smoker pack-years: 12 Tobacco: How many years used: 12 how long ago did patient quit smokin years ago alcohol intake: current alcohol intake frequency: holidays/special occasions only substance use type: does not use seatbelt use: always do you feel safe at home: Yes additional social history: -Miguel ROY Constitutional Constitutional: Denies fatigue, fever(s), poor appetite, weight gain or weight loss Gastrointestinal Gastrointestinal: Denies belching, bloating, change in bowel habits, change in stool character, chewing difficulty, coffee ground emesis, constipation, cramping, diarrhea, dyspepsia, dysphagia, early satiety, excessive flatus, fecalincontinence, heartburn, hematemesis, hematochezia, hemorrhoids, loose stools, melena, nausea, odynophagia, rectal bleeding, tenesmus, vomiting or weight changes Vital Signs Vital Signs Vital Signs: 05/30/24 05:45 05/30/24 05:46 05/30/24 06:23 Temperature 97.2 F L 97.2 F L Temperature Source Temporal Pulse Rate 62 62 Respiratory Rate 18 18 Respiratory Pattern Normal Blood Pressure 126/51 H 126/51 H Blood Pressure Mean 76 Blood Pressure Source Monitor Blood Pressure Position Semi-Fowlers Blood Pressure Location Left Arm Pulse Ox 97 97 Oxygen Delivery Method Room Air Room Air Weight Weight: 211 lb 3.2 oz Body Mass Index (BMI) 35.1 Physical Exam Const alert, oriented x3, no apparent distress and healthy appearing General Appearance: cooperative GI normal to inspection, nondistended, normoactive bowel sounds, soft to palpation,non-tender and non-distended Percussion: normal to percussion Rectal Exam: deferred Assessment & Plan Assessment/Plan (1) GERD (gastroesophageal reflux disease): (2) Barretts esophagus: PLAN: Assessment and Plan Assessment and Plan (1) GERD (gastroesophageal reflux disease): Status: Acute (2) Barretts esophagus: Status: Acute Plan: She underwent an upper endoscopy and was discovered to have severe erosive esophagitis LA grade C to D. Biopsies of the distal esophagus were as follows distal esophagus, biopsy: Fragments of gastroesophageal mucosa with focal intestinal metaplasia (goblet cell metaplasia) consistent with Cross?s esophagus. Moderate acute and chronic inflammation. Negative for dysplasia she agreed to be on PPIs twice a day for 3 months then we will repeat her upperendoscopy. (3) Gastroesophageal reflux disease: Plan: She has a history of gastroesophageal reflux disease. Unfortunately she has previous diagnosis of osteoporosis so she has been trying to avoid proton pump inhibitors. She also has a history of duodenal gastric reflux disease secondaryto previous duodenal switch procedure for weight loss. She did previously lose 130 pounds. She has avoided diabetes with her previous surgery. She takes a lot of supplementations due to mild source of issues from her previous gastric bypass surgery. She has a family history of esophageal cancer so we will screenher for Cross's esophagus. 05/30/24 [id number] <Electronically signed by Omar Vines DO> Cosigner Signature (if applicable): CC: Dr. Andreea Zuluaga MD; Omar Vines DO~ Signed [facility] Work Phone: Reason for referral (narrative)No reason for referral information availableWTogus [facility] Work Phone: Summary Purpose Family History No Family History Records Found Relationship Condition Age at Onset Recorded Date/T thalia father Kidney disorder Unknown Hypertension Unknown Cardiac disease Unknown Diabetes mellitus Unknown mother Chronic obstructive pulmonary disease Unk nown Relationship Condition Age at Onset Recorded Date/T thalia father Kidney disorder Unknown Hypertension Unknown Cardiac disease Unknown Diabetes mellitus Unknown Malignant neoplasm of skin Unknown mother Chronic obstructive pulmonary disease Unk nown aunt Malignant neoplasm of esophagus Unknown Advance Directives No Advanced Directives Records Found Advance Directive Response Recorded Date/ Time Living Will No October 16, 2022 9:55am Power of Patcher Helper No October 16 9:55am Advance Directive Response Recorded Date/ Time Living Will No October 16, 2022 8:55am Power of Patcher Helper No October 16 8:55am Advance Directive Response Recorded Date/ Time Living Will No May 29, 2024 1:27pm Power of Patcher Helper No May 29 1:27pm Advance Directive Response Recorded Date/ Time Living Will No May 29, 2024 1:27pm Do you have a Healthcare Power of Patcher Helper? No May 29, 2024 1:27pm Chief Complaint and Reason for Visit Chief Complaint R PIRIFORMIS, LUMBAR DDD. RX HERE COUGH, DRAINAGE COUGH, SORE THROAT Reason for Visit Acute cough Bronchitis Wheezing Acute sinusitis Chief Complaint Amb Documentation SCREENING Chief Complaint Amb Documentation SCREENING Reason for Visit Encounter for screen ing for malignant neoplasm of colon Chief Complaint POST PATI Reason for Visit Encounter for screen ing for malignant neoplasm of colon Chief Complaint POST PATI EORDER Reason for Visit Encounter for screen ing for malignant neoplasm of colon Chief Complaint Admit Date LEFT RIB PAIN/ WOULD LIKE X-RAY March 17, 2024 11:51am EORDER- RIBS March 17, 2024 12:24pm RT PERONEAL TENDONITIS/RX HERE May 5:41pm Reason for Visit Admit Date Rib pain on left side March 17 11:51am Barretts esophagus May 30, 2024 5:2 3am GERD (gastroesophageal reflux disease) [facility] 2024 5:23am Chief Complaint Admit Date Wheezing June 22, 2024 11:4 5am RT PERONEAL TENDONITIS/RX HERE June 5:00pm Reason for Visit Admit Date Barretts esophagus May 30, 2024 5:2 3am GERD (gastroesophageal reflux disease) [facility] 2024 5:23am Wheezing June 22, 2024 11:4 5am Chief Complaint Admit Date Wheezing June 22, 2024 11:4 5am RT PERONEAL TENDONITIS/RX HERE June 5:00pm SCREENING September 17, 2024 10:35 am Additional Source Comments INFORMATION SOURCE (unrecogn ized section and content) DATE CREATED AUTHOR 09/05/2017 [facility] ([place]) DATE CREATED AUTHOR AUTHOR'S ORGANIZ ATION 09/27/2024 [facility] Goals (unrecognized section and content) Goals may be documented in a n alternate sectionGoals may be documented in an alternate sectionGoals may be documented in an alternate sectionGoals may be documented in an alternate sectionGoals may be documented in an alternate section Care Teams (unrecognized sec tion and content) Team Status: Active Member Role Status Dates Dr. Blake Zuluaga MD Family Provider Active Dr. Blake Zuluaga MD Primary Care Provider Activ e Team Status: Inactive Member Role Status Dates Dr. Blake Zuluaga MD Primary Care Provider, Atte nding Provider Active Team Status: Active Member Role Status Dates Dr. Blake Zuluaga MD Primary Care Provider Activ e Mariann Gan Attending Provider Active Team Status: Inactive Member Role Status Dates Dr. Blake Zuluaga MD Primary Care Provider Activ e Dr. Flavia Pablo DO Attending Provider Active Team Status: Inactive Member Role Status Dates Dr. Blake Zuluaga MD Primary Care Provider Activ e Dr. Flavia Pablo DO Attending Provider, Referrin g Provider Active Team Status: Active Member Role Status Dates Dr. Blake Zuluaga MD Primary Care Provider, Refe rring Provider Active Dr. Omar Vines DO Attending Provider, Other Prov ider Active Team Status: Inactive Member Role Status Dates Dr. Blake Zuluaga MD Primary Care Provider, Refe rring Provider Active Dr. Omar Vines DO Attending Provider Active Team Status: Inactive Member Role Status Dates Dr. Blake Zuluaga MD Primary Care Provider, Attending Provider, Referring Provider Active Team Status: Active Member Role Status Dates Dr. Andreea Zuluaga MD Primary Care Provider Acti ve Team Status: Inactive Member Role Status Dates Dr. Andreea Zuluaga MD Primary Care Provider Acti ve Start: March 17, 2024 End: March 17, 2024 Dr. Andreea Zuluaga MD Referring Provider Active Start: March 17, 2024 End: March 17, 2024 Arnaud Dyer ROTARY R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 Attending Provider Active Star t: March 17, 2024 End: March 17, 2024 Team Status: Inactive Member Role Status Dates Dr. Andreea Zuluaga MD Primary Care Provider Acti ve Start: March 17, 2024 End: March 17, 2024 Arnaud Dyer , [employer]ARY R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 Attending Provider Active Star t: March 17, 2024 End: March 17, 2024 Arnaud Dyer , ROTARY R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 Referring Provider Active Star t: March 17, 2024 End: March 17, 2024 Team Status: Active Member Role Status Dates Dr. Andreea Zuluaga MD Primary Care Provider Acti ve Start: May 26, 2024 Dr. Luther Love DPM Attending Provider Active Start: May 26, 2024 Dr. Luther Love DPM Referring Provider Active Start: May 26, 2024 Team Status: Inactive Member Role Status Dates Dr. Andreea Zuluaga MD Primary Care Provider Acti ve Start: May 30, 2024 End: May 30, 2024 Dr. Andreea Zuluaga MD Referring Provider Active Start: May 30, 2024 End: May 30, 2024 Dr. Omar Vines DO Attending Provider Active Start: May 30, 2024 End: May 30, 2024 Team Status: Active Member Role Status Dates Dr. Andreea Zuluaga MD Primary Care Provider Acti ve Start: May 30, 2024 Dr. Andreea Zuluaga MD Referring Provider Active Start: May 30, 2024 Dr. Omar Vines DO Attending Provider Active Start: May 30, 2024 Dr. Omar Vines DO Other Provider Active St art: May 30, 2024 Team Status: Inactive Member Role Status Dates Dr. Andreea Zuluaga MD Primary Care Provider Acti ve Start: June 22, 2024 End: June 22, 2024 Dr. Andreea Zuluaga MD Referring Provider Active Start: June 22, 2024 End: June 22, 2024 Real Ag ROTARY ROCK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, R[employer]ARY R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 Attending Provider Active S tart: June 22, 2024 End: June 22, 2024 Team Status: Active Member Role Status Dates Dr. Andreea Zuluaga MD Primary Care Provider Acti ve Start: June 30, 2024 Dr. Luther Love DPM Attending Provider Active Start: June 30, 2024 Dr. Luther Love DPM Referring Provider Active Start: June 30, 2024 Team Status: Inactive Member Role Status Dates Dr. Andreea Zuluaga MD Primary Care Provider Acti ve Start: August 18, 2024 End: August 18, 2024 Dr. Luther Love DPM Attending Provider Active Start: August 18, 2024 End: August 18, 2024 Dr. Luther Love DPM Referring Provider Active Start: August 18, 2024 End: August 18, 2024 Team Status: Active Member Role/Relationship Status Dates Dr. Andreea Zuluaga MD Primary Care Provider Acti ve Team Status: Inactive Member Role/Relationship Status Dates Dr. Andreea Zuluaga MD Primary Care Provider Acti ve Start: May 30, 2024 End: May 30, 2024 Dr. Andreea Zuluaga MD Referring Provider Active Start: May 30, 2024 End: May 30, 2024 Dr. Omar Vines DO Attending Provider Active Start: May 30, 2024 End: May 30, 2024 Team Status: Active Member Role/Relationship Status Dates Dr. Andreea Zuluaga MD Primary Care Provider Acti ve Start: May 30, 2024 Dr. Andreea Zuluaga MD Referring Provider Active Start: May 30, 2024 Dr. Omar Vines DO Attending Provider Active Start: May 30, 2024 Dr. Omar Vines DO Other Provider Active St art: May 30, 2024 Team Status: Inactive Member Role/Relationship Status Dates Dr. Andreea Zuluaga MD Primary Care Provider Acti ve Start: June 22, 2024 End: June 22, 2024 Dr. Andreea Zuluaga MD Referring Provider Active Start: June 22, 2024 End: June 22, 2024 Real Ag ROTARY ROCK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, ROTARY R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 Attending Provider Active S tart: June 22, 2024 End: June 22, 2024 Team Status: Active Member Role/Relationship Status Dates Dr. Andreea Zuluaga MD Primary Care Provider Acti ve Start: June 30, 2024 Dr. Luther Love DPM Attending Provider Active Start: June 30, 2024 Dr. Luther Love DPM Referring Provider Active Start: June 30, 2024 Team Status: Inactive Member Role/Relationship Status Dates Dr. Andreea Zuluaga MD Primary Care Provider Acti ve Start: August 18, 2024 End: August 18, 2024 Dr. Luther Love DPM Attending Provider Active Start: August 18, 2024 End: August 18, 2024 Dr. Luther Love DPM Referring Provider Active Start: August 18, 2024 End: August 18, 2024 Team Status: Inactive Member Role/Relationship Status Dates Dr. Andreea Zuluaga MD Primary Care Provider Acti ve Start: September 17, 2024 End: September 17, 2024 Dr. Andreea Zuluaga MD Attending Provider Active Start: September 17, 2024 End: September 17, 2024 Dr. Andreea Zuluaga MD Referring Provider Active Start: September 17, 2024 End: September 17, 2024 FOR RECORDS PERTAINING TO PATIENTS WHO ARE OR HAVE BEEN ENROLLED IN A CHEMICAL DEPENDENCY/SUBSTANCEABUSE PROGRAM, SOME INFORMATION MAY BE OMITTED. This clinical summary was aggregated from multiple sources. Caution should be exercised in using it in the provision of clinical care. This summary normalizes information from multiple sources, and as a consequence, information in this document may materially change the coding, format and clinical context of patient data. In addition, data may be omitted in some cases. CLINICAL DECISIONS SHOULD BE BASED ON THE PRIMARY CLINICAL RECORDS. [facility] [place], [facility]. provides no warranty or guarantee of the accuracy or completeness of information in this document.
[2024-11-10] MEDS: Erythromycin Base 1 OPTH.TUBE 1 APPLIC RIGHT EYE (23:08)
== END 2024-11-10 23:12 | disposition home or self-care (01) ==
PROVIDERS: Emergency Provider Emergency Medicine; PCP Family Medicine; Visit Provider Emergency Medicine
DX: S05.01XA Injury of conjunctiva and corneal abrasion without foreign body, right eye, initial encounter (principal); X58.XXXA Exposure to other specified factors, initial encounter; Z87.891 Personal history of nicotine dependence
CPT/HCPCS: 99282

== ENCOUNTER → 2024-11-24 | Outpatient (CLI) | payer OTHER, SELFPAY ==
[2024-11-24 09:42] LABS: Ionized Calcium Order ORDER TUBE
[2024-11-24 10:59] LABS: PTHIN 89 pg/mL (11-61)
[2024-11-24 11:07] LABS: AST(SGOT) 24 U/L (<=31); Alanine Aminotransfer ALT/SGPT 21 U/L (<=34); Albumin, Serum 4.1 g/dL (3.5-5.0); Alkaline Phosphatase 95 U/L (35-104); Anion Gap 12 (5-15); BUN 18 mg/dL (4-19); BUN/Creat Ratio 27.0 RATIO (10-20); Calcium,Total 8.4 mg/dL (7.6-11.0); Carbon Dioxide 23.9 mmol/L (21.0-32.0); Chloride 106 mmol/L (98-108); Cholesterol 133 mg/dL (<=200); Globulin 2.3 g/dL (2.2-4.2); Glucose 105 mg/dL (70-99); Low Density Lipoprotein Calc. 46 mg/dL; Magnesium 2.2 mg/dL (1.5-2.2); Potassium 4.0 mmol/L (3.3-5.1); Triglycerides 217 mg/dL; Very Low Density Lipoprotein 43 mg/dL (5-40); cholesterol:hdl ratio screen 3.04
== END | disposition home or self-care (01) ==
LOC: MTLAB 08:39
PROVIDERS: PCP Family Medicine; Referring Provider Family Medicine; Visit Provider Family Medicine
DX: E55.9 Vitamin D deficiency, unspecified (principal); E78.00 Pure hypercholesterolemia, unspecified; E66.9 Obesity, unspecified; M81.0 Age-related osteoporosis without current pathological fracture
CPT/HCPCS: 36415; 80053; 80061; 82330; 83036; 83735; 83970; 84100; 84443